=== PATIENT | female | born 1945 | race Caucasian/White ===

== ENCOUNTER 2016-09-23 12:30 | Outpatient (CLI) | payer MEDICARE, OTHER | END 2016-09-23 12:31 | disposition home or self-care (01) | DX: I82.402 Acute embolism and thrombosis of unspecified deep veins of left lower extremity (principal); Z86.718 Personal history of other venous thrombosis and embolism ==

== ENCOUNTER 2016-10-22 09:30 | Outpatient (CLI) | payer MEDICARE, OTHER | END 2016-10-22 09:31 | disposition home or self-care (01) | DX: I82.402 Acute embolism and thrombosis of unspecified deep veins of left lower extremity (principal); Z86.718 Personal history of other venous thrombosis and embolism ==

== ENCOUNTER 2016-11-17 13:25 | Outpatient (CLI) | payer MEDICARE, OTHER | END 2016-11-17 13:26 | disposition home or self-care (01) | DX: I82.402 Acute embolism and thrombosis of unspecified deep veins of left lower extremity (principal) ==

== ENCOUNTER 2016-12-02 09:36 | Outpatient (CLI) | payer MEDICARE, OTHER | END 2016-12-02 09:37 | disposition home or self-care (01) | DX: I82.402 Acute embolism and thrombosis of unspecified deep veins of left lower extremity (principal) ==

== ENCOUNTER 2016-12-24 11:06 | Outpatient (CLI) | payer MEDICARE, OTHER | END 2016-12-24 11:07 | disposition home or self-care (01) | DX: I82.402 Acute embolism and thrombosis of unspecified deep veins of left lower extremity (principal) ==

== ENCOUNTER 2017-01-13 12:39 | Outpatient (CLI) | payer MEDICARE, OTHER | END 2017-01-13 12:40 | disposition home or self-care (01) | DX: I82.402 Acute embolism and thrombosis of unspecified deep veins of left lower extremity (principal) ==

== ENCOUNTER 2017-02-10 10:31 | Outpatient (CLI) | payer MEDICARE, OTHER | END 2017-02-10 10:32 | disposition home or self-care (01) | LOC: LAB.F 10:31 | PROVIDERS: ATTEND Nurse Practitioner | DX: I82.402 Acute embolism and thrombosis of unspecified deep veins of left lower extremity (principal) | CPT/HCPCS: 85610 ==

== ENCOUNTER 2017-02-21 10:53 | Outpatient (CLI) | payer MEDICARE, OTHER | END 2017-02-21 10:54 | disposition home or self-care (01) | LOC: LAB.F 10:53 | PROVIDERS: ATTEND Nurse Practitioner | DX: I82.402 Acute embolism and thrombosis of unspecified deep veins of left lower extremity (principal) | CPT/HCPCS: 85610 ==

== ENCOUNTER 2017-03-03 10:46 | Outpatient (CLI) | payer MEDICARE, OTHER | END 2017-03-03 10:47 | disposition home or self-care (01) | LOC: LAB.F 10:46 | PROVIDERS: ATTEND Nurse Practitioner | DX: I82.402 Acute embolism and thrombosis of unspecified deep veins of left lower extremity (principal) | CPT/HCPCS: 85610 ==

== ENCOUNTER 2017-03-30 09:49 | Outpatient (CLI) | payer MEDICARE, OTHER | END 2017-03-30 09:50 | disposition home or self-care (01) | LOC: LAB.F 09:49 | PROVIDERS: ATTEND Nurse Practitioner | DX: I82.402 Acute embolism and thrombosis of unspecified deep veins of left lower extremity (principal) | CPT/HCPCS: 85610 ==

== ENCOUNTER 2017-04-29 10:10 | Outpatient (CLI) | payer MEDICARE, OTHER | END 2017-04-29 10:11 | disposition home or self-care (01) | LOC: LAB.F 10:10 | PROVIDERS: ATTEND Nurse Practitioner | DX: I82.402 Acute embolism and thrombosis of unspecified deep veins of left lower extremity (principal) | CPT/HCPCS: 85610 ==

== ENCOUNTER 2017-05-27 10:23 | Outpatient (CLI) | payer MEDICARE, OTHER | END 2017-05-27 10:24 | disposition home or self-care (01) | LOC: LAB.F 10:23 | PROVIDERS: ATTEND Nurse Practitioner | DX: I82.402 Acute embolism and thrombosis of unspecified deep veins of left lower extremity (principal) | CPT/HCPCS: 85610 ==

== ENCOUNTER 2017-06-24 08:00 | Outpatient (CLI) | payer MEDICARE, OTHER | END 2017-06-24 08:01 | disposition home or self-care (01) | LOC: LAB.F 08:00 | PROVIDERS: ATTEND Nurse Practitioner | DX: I82.402 Acute embolism and thrombosis of unspecified deep veins of left lower extremity (principal) | CPT/HCPCS: 85610 ==

== ENCOUNTER 2017-07-25 10:21 | Outpatient (CLI) | payer MEDICARE, OTHER | END 2017-07-25 10:22 | disposition home or self-care (01) | LOC: LAB.F 10:21 | PROVIDERS: ATTEND Nurse Practitioner | DX: I82.402 Acute embolism and thrombosis of unspecified deep veins of left lower extremity (principal) | CPT/HCPCS: 85610 ==

== ENCOUNTER 2017-08-19 13:59 | Outpatient (CLI) | payer MEDICARE, OTHER | END 2017-08-19 14:00 | disposition home or self-care (01) | LOC: LAB.F 13:59 | PROVIDERS: ATTEND Nurse Practitioner | DX: I82.402 Acute embolism and thrombosis of unspecified deep veins of left lower extremity (principal) | CPT/HCPCS: 85610 ==

== ENCOUNTER 2017-08-31 13:35 | Outpatient (CLI) | payer MEDICARE, OTHER | END 2017-08-31 13:36 | disposition home or self-care (01) | LOC: LAB.F 13:35 | PROVIDERS: ATTEND Nurse Practitioner | DX: I82.402 Acute embolism and thrombosis of unspecified deep veins of left lower extremity (principal) | CPT/HCPCS: 85610 ==

== ENCOUNTER 2017-09-15 09:32 | Outpatient (CLI) | payer MEDICARE, OTHER | END 2017-09-15 09:33 | disposition home or self-care (01) | LOC: LAB.F 09:32 | PROVIDERS: ATTEND Nurse Practitioner | DX: I82.402 Acute embolism and thrombosis of unspecified deep veins of left lower extremity (principal) | CPT/HCPCS: 85610 ==

== ENCOUNTER 2017-09-29 11:00 | Outpatient (CLI) | payer MEDICARE, OTHER | END 2017-09-29 11:01 | disposition home or self-care (01) | LOC: LAB.F 11:00 | PROVIDERS: ATTEND Family Medicine | DX: I82.402 Acute embolism and thrombosis of unspecified deep veins of left lower extremity (principal) | CPT/HCPCS: 85610 ==

== ENCOUNTER 2017-10-13 10:53 | Outpatient (CLI) | payer MEDICARE, OTHER | END 2017-10-13 10:54 | disposition home or self-care (01) | LOC: LAB.F 10:53 | PROVIDERS: ATTEND Family Medicine | DX: I82.402 Acute embolism and thrombosis of unspecified deep veins of left lower extremity (principal) | CPT/HCPCS: 85610 ==

== ENCOUNTER 2017-11-03 11:09 | Outpatient (CLI) | payer MEDICARE, OTHER | END 2017-11-03 11:10 | disposition home or self-care (01) | LOC: LAB.F 11:09 | PROVIDERS: ATTEND Family Medicine | DX: I82.402 Acute embolism and thrombosis of unspecified deep veins of left lower extremity (principal) | CPT/HCPCS: 85610 ==

== ENCOUNTER 2017-11-25 10:29 | Outpatient (CLI) | payer MEDICARE, OTHER | END 2017-11-25 10:30 | disposition home or self-care (01) | LOC: LAB.F 10:29 | PROVIDERS: ATTEND Family Medicine | DX: I82.402 Acute embolism and thrombosis of unspecified deep veins of left lower extremity (principal) | CPT/HCPCS: 85610 ==

== ENCOUNTER 2017-12-09 12:57 | Outpatient (CLI) | payer MEDICARE, OTHER | END 2017-12-09 12:58 | disposition home or self-care (01) | LOC: LAB.F 12:57 | PROVIDERS: ATTEND Family Medicine | DX: I82.402 Acute embolism and thrombosis of unspecified deep veins of left lower extremity (principal) | CPT/HCPCS: 85610 ==

== ENCOUNTER 2017-12-23 11:14 | Outpatient (CLI) | payer MEDICARE, OTHER | END 2017-12-23 11:15 | disposition home or self-care (01) | LOC: LAB.F 11:14 | PROVIDERS: ATTEND Family Medicine | DX: I82.402 Acute embolism and thrombosis of unspecified deep veins of left lower extremity (principal) | CPT/HCPCS: 85610 ==

== ENCOUNTER 2018-01-13 14:00 | Outpatient (CLI) | payer MEDICARE, OTHER | END 2018-01-13 14:01 | disposition home or self-care (01) | LOC: LAB.F 14:00 | PROVIDERS: ATTEND Family Medicine | DX: I82.402 Acute embolism and thrombosis of unspecified deep veins of left lower extremity (principal) | CPT/HCPCS: 85610 ==

== ENCOUNTER 2018-02-03 10:37 | Outpatient (CLI) | payer MEDICARE, OTHER | END 2018-02-03 10:38 | disposition home or self-care (01) | LOC: LAB.F 10:37 | PROVIDERS: ATTEND Family Medicine | DX: I82.402 Acute embolism and thrombosis of unspecified deep veins of left lower extremity (principal) | CPT/HCPCS: 85610 ==

== ENCOUNTER 2018-02-23 13:29 | Outpatient (CLI) | payer MEDICARE, OTHER | END 2018-02-23 13:30 | disposition home or self-care (01) | LOC: LAB.F 13:29 | PROVIDERS: ATTEND Family Medicine | DX: I82.402 Acute embolism and thrombosis of unspecified deep veins of left lower extremity (principal) | CPT/HCPCS: 85610 ==

== ENCOUNTER 2018-03-27 10:43 | Outpatient (CLI) | payer MEDICARE, OTHER | END 2018-03-27 10:44 | disposition home or self-care (01) | LOC: LAB.F 10:43 | PROVIDERS: ATTEND Family Medicine | DX: I82.402 Acute embolism and thrombosis of unspecified deep veins of left lower extremity (principal) | CPT/HCPCS: 85610 ==

== ENCOUNTER 2018-04-12 11:07 | Outpatient (CLI) | payer MEDICARE, OTHER | END 2018-04-12 11:08 | disposition home or self-care (01) | LOC: LAB.F 11:07 | PROVIDERS: ATTEND Family Medicine | DX: I82.402 Acute embolism and thrombosis of unspecified deep veins of left lower extremity (principal) | CPT/HCPCS: 85610 ==

== ENCOUNTER 2018-05-11 10:39 | Outpatient (CLI) | payer MEDICARE, OTHER | END 2018-05-11 10:40 | disposition home or self-care (01) | LOC: LAB.F 10:39 | PROVIDERS: ATTEND Family Medicine | DX: I82.402 Acute embolism and thrombosis of unspecified deep veins of left lower extremity (principal) | CPT/HCPCS: 85610 ==

== ENCOUNTER 2018-06-08 09:27 | Outpatient (CLI) | payer MEDICARE, OTHER | END 2018-06-08 09:28 | disposition home or self-care (01) | LOC: LAB.F 09:27 | PROVIDERS: ATTEND Family Medicine | DX: I82.402 Acute embolism and thrombosis of unspecified deep veins of left lower extremity (principal) | CPT/HCPCS: 85610 ==

== ENCOUNTER 2018-07-07 11:41 | Outpatient (CLI) | payer MEDICARE, OTHER ==
[2018-07-07 17:53] LABS: INR 2.6 (0.8-1.2); PT - PROTHROMBIN TIME 29.5 secs (9.9-12.6)
== END 2018-07-07 11:42 | disposition home or self-care (01) ==
LOC: LAB.F 11:41
PROVIDERS: ATTEND Family Medicine
DX: I82.402 Acute embolism and thrombosis of unspecified deep veins of left lower extremity (principal)
CPT/HCPCS: 36415; 85610

== ENCOUNTER 2018-08-04 11:18 | Outpatient (CLI) | payer MEDICARE, OTHER | END 2018-08-04 11:19 | disposition home or self-care (01) | LOC: LAB.F 11:18 | PROVIDERS: ATTEND Family Medicine | DX: I82.402 Acute embolism and thrombosis of unspecified deep veins of left lower extremity (principal) | CPT/HCPCS: 85610 ==

== ENCOUNTER 2018-08-21 10:46 | Outpatient (CLI) | payer MEDICARE, OTHER | END 2018-08-21 10:47 | disposition home or self-care (01) | LOC: LAB.F 10:46 | PROVIDERS: ATTEND Family Medicine | DX: I82.402 Acute embolism and thrombosis of unspecified deep veins of left lower extremity (principal) | CPT/HCPCS: 85610 ==

== ENCOUNTER 2018-09-06 10:24 | Outpatient (CLI) | payer MEDICARE, OTHER | END 2018-09-06 10:25 | disposition home or self-care (01) | LOC: LAB.F 10:24 | PROVIDERS: ATTEND Family Medicine | DX: I82.402 Acute embolism and thrombosis of unspecified deep veins of left lower extremity (principal) | CPT/HCPCS: 85610 ==

== ENCOUNTER 2018-09-24 15:43 | Emergency (ER) | payer MEDICARE, OTHER ==
--- NOTE | 2018-09-24 16:01 | ED Physician Documentation ---
History of Present Illness - Stated complaint Stated Complaint: RIGHT LEG HURTING, PAINFUL WALKING - Chief complaint Chief Complaint: Ext Problem - History obtained from History obtained from: Patient - History of Present Illness Timing: How many weeks ago (1) - Additonal information Additional information: 73-year-old female with a history of multiple myeloma who has had a stem cell transplant that has been successful has had a prior DVT and is on Coumadin and she has developed some pain in her right calf. She feels these symptoms may be related to DVT and she is here for evaluation. She states that she does have a bit of pain when she is walking and when she is sitting and doing nothing the pain is not bad. She denies any swelling or leg. She is recently seen her oncologist yesterday and she will continue on her antineoplastic medication. Review of Systems Constitutional: denies: Fever Eyes: denies: Decreased vision Ears: denies: Ear pain Nose: denies: Congestion Throat: denies: Sore throat Cardiac: denies: Chest pain / pressure, Palpitations Respiratory: denies: Dyspnea, Cough GI: reports: Diarrhea. denies: Abdominal Pain, Nausea, Vomiting : denies: Dysuria, Frequency Skin: denies: Rash Musculoskeletal: reports: Extremity pain, Pain with weight bearing. denies: Neck pain, Back pain, Joint pain, Extremity swelling Neurologic: denies: Generalized weakness, Focal weakness, Numbness PD PAST MEDICAL HISTORY - Past Surgical History Past Surgical History: Yes - Present Medications Home Medications: Ambulatory Orders Medication Instructions Recorded Confirmed Levothyroxine [Synthroid] 88 mcg PO QDAC 04/12/13 04/12/13 Losartan/Hydrochlorothiazide 1 each PO DAILY 04/12/13 04/12/13 [Losartan-Hctz 50-12.5 mg Tab] Metoprolol Succinate 50 mg PO DAILY 04/12/13 04/12/13 Rosuvastatin [Crestor] 20 mg PO QPM 04/12/13 04/12/13 Warfarin [Coumadin] 5 mg PO 1400 04/12/13 04/12/13 - Allergies Allergies/Adverse Reactions: Allergies Allergy/AdvReac Type Severity Reaction Status Date / Time No Known Drug Allergies Allergy Verified 04/12/13 23:20 - Social History Does the pt smoke?: No Smoking Status: Never smoker Does the pt drink ETOH?: No Does the pt have substance abuse?: No - Immunizations Immunizations are current?: Yes - POLST Patient has POLST: No PD ED PE NORMAL - Vitals Vital signs reviewed: Yes (tachy and hypertensive ) - General General: Alert and oriented X 3, No acute distress, Well developed/nourished, Other (hard of hearing ) - HEENT HEENT: Atraumatic, PERRL, EOMI - Respiratory Respiratory: No respiratory distress - Back Back: No CVA TTP, No spinal TTP - Derm Derm: Normal color, Warm and dry, No rash - Extremities Extremities: No deformity, No edema, Other (There is posterior calf tenderness without swelling and there is no pain to palpation of the posterior thigh. ) - Neuro Neuro: Alert and oriented X 3, tie inspector 2-12 intact, No motor deficit, No sensory deficit, Normal speech Eye Opening: Spontaneous Motor: Obeys Commands Verbal: Oriented GCS Score: 15 - Psych Psych: Normal mood, Normal affect Results - Vitals Vitals: Oxygen O2 Source Room air - Labs Labs: Laboratory Tests 09/24/18 16:20 Whole Blood INR 2.0 H - Rads (name of study) duplex viens right Radiology: Prelim report reviewed (Impression: No evidence for deep venous thrombosis.), EMP read indepedently, See rad report PD MEDICAL DECISION MAKING - ED course Complexity details: reviewed results, re-evaluated patient, considered differential, d/w patient, d/w family ED course: 73-year-old female with a prior history of DVT has pain in her right calf and she is concerned about DVT again. She does not have any swelling of the leg. She does have tenderness to the posterior calf. She has a negative ultrasound scan and her INR is 2.0. She is uncertain of any strain that she could have done to her calf. Departure - Departure Disposition: 01 Home, Self Care Clinical Impression: Strain of calf muscle Qualifiers: Encounter type: initial encounter Laterality: right Qualified Code(s): S86.811A - Strain of other muscle(s) and tendon(s) at lower leg level, right leg, in itial encounter Condition: Stable Instructions: ED Strain Muscle Ext Follow-Up: Clive Wick MD [Primary Care Provider] - Discharge Date/Time: 09/24/18 17:42
[2018-09-24 17:42] VITALS: BP 112/74
--- NOTE | 2018-09-24 17:43 | Ultrasound Report ---
Reason: R calf pain, cancer, prior DVT Procedure Date: 09/24/2018 Accession Number: [id number] / [id number] Procedure: US - Duplex Ext Veins Right CPT Code: FULL RESULT: EXAM: RIGHT LOWER EXTREMITY VENOUS ULTRASOUND EXAM DATE: 09/24/2018 05:15 PM. CLINICAL HISTORY: Right calf pain. Cancer patient. Prior DVT. COMPARISON: None. TECHNIQUE: Real-time sonographic vascular imaging was performed by the roofer assistant through the lower extremity utilizing both color-flow and Doppler spectral analysis. Multiple new accounts banking representative static images were saved for review. FINDINGS: Common Femoral Vein (CFV): Normal. CFV-GSV Junction: Normal. Profunda Femoral Vein (PFV): Normal. Femoral Vein (FV) Prox: Normal. Femoral Vein (FV) Mid: Normal. Femoral Vein (FV) Dist: Normal. Popliteal Vein: Normal. Posterior Tibial Veins: Normal. Peroneal Veins: Normal. IMPRESSION: No evidence for deep venous thrombosis. RADIA
== END 2018-09-24 17:42 | disposition home or self-care (01) ==
LOC: ED 15:43
DX: S86.811A Strain of other muscle(s) and tendon(s) at lower leg level, right leg, initial encounter (principal); X58.XXXA Exposure to other specified factors, initial encounter; Z86.718 Personal history of other venous thrombosis and embolism; Z79.01 Long term (current) use of anticoagulants; Z85.79 Personal history of other malignant neoplasms of lymphoid, hematopoietic and related tissues; Z94.84 Stem cells transplant status
CPT/HCPCS: 85610; 99282; 99283

== ENCOUNTER 2018-10-23 10:41 | Outpatient (CLI) | payer MEDICARE, OTHER | END 2018-10-23 10:42 | disposition home or self-care (01) | LOC: LAB.F 10:41 | PROVIDERS: ATTEND Family Medicine | DX: I82.402 Acute embolism and thrombosis of unspecified deep veins of left lower extremity (principal) | CPT/HCPCS: 85610 ==

== ENCOUNTER 2019-01-01 10:54 | Outpatient (CLI) | payer MEDICARE, OTHER | END 2019-01-01 10:55 | disposition home or self-care (01) | LOC: LAB.F 10:54 | PROVIDERS: ATTEND Family Medicine | DX: I82.402 Acute embolism and thrombosis of unspecified deep veins of left lower extremity (principal) | CPT/HCPCS: 85610 ==

== ENCOUNTER 2019-01-08 12:08 | Outpatient (CLI) | payer MEDICARE, OTHER | END 2019-01-08 12:09 | disposition home or self-care (01) | LOC: LAB.F 12:08 | PROVIDERS: ATTEND Family Medicine | DX: I82.402 Acute embolism and thrombosis of unspecified deep veins of left lower extremity (principal) | CPT/HCPCS: 85610 ==

== ENCOUNTER 2019-01-29 10:27 | Outpatient (CLI) | payer MEDICARE, OTHER | END 2019-01-29 10:28 | disposition home or self-care (01) | LOC: LAB.F 10:27 | PROVIDERS: ATTEND Family Medicine | DX: I82.402 Acute embolism and thrombosis of unspecified deep veins of left lower extremity (principal) | CPT/HCPCS: 85610 ==

== ENCOUNTER 2019-02-19 11:14 | Outpatient (CLI) | payer MEDICARE, OTHER | END 2019-02-19 11:15 | disposition home or self-care (01) | LOC: LAB.F 11:14 | PROVIDERS: ATTEND Family Medicine | DX: I82.402 Acute embolism and thrombosis of unspecified deep veins of left lower extremity (principal) | CPT/HCPCS: 85610 ==

== ENCOUNTER 2019-04-11 15:01 | Outpatient (CLI) | payer MEDICARE, OTHER | END 2019-04-11 15:02 | disposition home or self-care (01) | LOC: LAB.S 15:01 | PROVIDERS: ATTEND Family Medicine | DX: I82.402 Acute embolism and thrombosis of unspecified deep veins of left lower extremity (principal) | CPT/HCPCS: 85610 ==

== ENCOUNTER 2019-04-19 10:51 | Outpatient (CLI) | payer MEDICARE, OTHER | END 2019-04-19 10:52 | disposition home or self-care (01) | LOC: LAB.S 10:51 | PROVIDERS: ATTEND Family Medicine | DX: I82.402 Acute embolism and thrombosis of unspecified deep veins of left lower extremity (principal) | CPT/HCPCS: 85610 ==

== ENCOUNTER 2019-05-03 11:48 | Outpatient (CLI) | payer MEDICARE, OTHER | END 2019-05-03 11:49 | disposition home or self-care (01) | LOC: LAB.S 11:48 | PROVIDERS: ATTEND Family Medicine | DX: I82.402 Acute embolism and thrombosis of unspecified deep veins of left lower extremity (principal) | CPT/HCPCS: 85610 ==

== ENCOUNTER 2019-05-18 11:44 | Outpatient (CLI) | payer MEDICARE, OTHER | END 2019-05-18 11:45 | disposition home or self-care (01) | LOC: LAB.S 11:44 | PROVIDERS: ATTEND Family Medicine | DX: I82.402 Acute embolism and thrombosis of unspecified deep veins of left lower extremity (principal) | CPT/HCPCS: 85610 ==

== ENCOUNTER 2019-06-14 13:32 | Outpatient (CLI) | payer MEDICARE, OTHER | END 2019-06-14 13:33 | disposition home or self-care (01) | LOC: LAB.S 13:32 | PROVIDERS: ATTEND Family Medicine | DX: I82.402 Acute embolism and thrombosis of unspecified deep veins of left lower extremity (principal) | CPT/HCPCS: 85610 ==

== ENCOUNTER 2019-07-05 13:18 | Outpatient (CLI) | payer MEDICARE, OTHER | END 2019-07-05 13:19 | disposition home or self-care (01) | LOC: LAB.S 13:18 | PROVIDERS: ATTEND Family Medicine | DX: I82.402 Acute embolism and thrombosis of unspecified deep veins of left lower extremity (principal) | CPT/HCPCS: 85610 ==

== ENCOUNTER 2019-08-08 12:54 | Outpatient (CLI) | payer MEDICARE, OTHER | END 2019-08-08 23:59 | disposition home or self-care (01) | LOC: LAB.S 12:54 | PROVIDERS: ATTEND Family Medicine | DX: I82.402 Acute embolism and thrombosis of unspecified deep veins of left lower extremity (principal) | CPT/HCPCS: 85610 ==

== ENCOUNTER 2019-08-15 12:18 | Outpatient (CLI) | payer MEDICARE, OTHER | END 2019-08-15 12:19 | disposition home or self-care (01) | LOC: LAB.S 12:18 | PROVIDERS: ATTEND Family Medicine | DX: I82.402 Acute embolism and thrombosis of unspecified deep veins of left lower extremity (principal) | CPT/HCPCS: 85610 ==

== ENCOUNTER 2019-09-12 13:26 | Outpatient (CLI) | payer MEDICARE, OTHER | END 2019-09-12 13:27 | disposition home or self-care (01) | LOC: LAB.S 13:26 | PROVIDERS: ATTEND Family Medicine | DX: Z51.81 Encounter for therapeutic drug level monitoring (principal); Z79.01 Long term (current) use of anticoagulants | CPT/HCPCS: 85610 ==

== ENCOUNTER 2019-10-09 14:24 | Outpatient (CLI) | payer MEDICARE, OTHER | END 2019-10-09 14:25 | disposition home or self-care (01) | LOC: LAB.S 14:24 | PROVIDERS: ATTEND Family Medicine | DX: Z51.81 Encounter for therapeutic drug level monitoring (principal); Z79.01 Long term (current) use of anticoagulants | CPT/HCPCS: 85610 ==

== ENCOUNTER 2019-11-06 14:01 | Outpatient (CLI) | payer MEDICARE, OTHER | END 2019-11-06 14:02 | disposition home or self-care (01) | LOC: LAB.S 14:01 | PROVIDERS: ATTEND Family Medicine | DX: Z51.81 Encounter for therapeutic drug level monitoring (principal); Z79.01 Long term (current) use of anticoagulants | CPT/HCPCS: 85610 ==

== ENCOUNTER 2020-01-29 12:52 | Outpatient (CLI) | payer MEDICARE, OTHER | END 2020-01-29 12:53 | disposition home or self-care (01) | LOC: LAB.S 12:52 | PROVIDERS: ATTEND Family Medicine | DX: Z51.81 Encounter for therapeutic drug level monitoring (principal); Z79.01 Long term (current) use of anticoagulants | CPT/HCPCS: 85610 ==

== ENCOUNTER 2020-02-26 11:50 | Outpatient (CLI) | payer MEDICARE, OTHER | END 2020-02-26 11:51 | disposition home or self-care (01) | LOC: LAB.S 11:50 | PROVIDERS: ATTEND Family Medicine | DX: Z51.81 Encounter for therapeutic drug level monitoring (principal); Z79.01 Long term (current) use of anticoagulants | CPT/HCPCS: 85610 ==

== ENCOUNTER 2020-05-01 16:21 | Outpatient (CLI) | payer MEDICARE, OTHER | END 2020-05-01 16:22 | disposition home or self-care (01) | LOC: LAB.S 16:21 | PROVIDERS: ATTEND Family Medicine | DX: Z51.81 Encounter for therapeutic drug level monitoring (principal); Z79.01 Long term (current) use of anticoagulants | CPT/HCPCS: 85610 ==

== ENCOUNTER 2020-05-16 13:29 | Outpatient (CLI) | payer MEDICARE, OTHER | END 2020-05-16 13:30 | disposition home or self-care (01) | LOC: LAB.S 13:29 | PROVIDERS: ATTEND Family Medicine | DX: Z51.81 Encounter for therapeutic drug level monitoring (principal); Z79.01 Long term (current) use of anticoagulants | CPT/HCPCS: 85610 ==

== ENCOUNTER 2020-06-12 13:15 | Outpatient (CLI) | payer MEDICARE, OTHER | END 2020-06-12 13:16 | disposition home or self-care (01) | LOC: LAB.S 13:15 | PROVIDERS: ATTEND Family Medicine | DX: Z51.81 Encounter for therapeutic drug level monitoring (principal); Z79.01 Long term (current) use of anticoagulants | CPT/HCPCS: 85610 ==

== ENCOUNTER 2020-06-17 13:14 | Outpatient (CLI) | payer MEDICARE, OTHER | END 2020-06-17 13:15 | disposition home or self-care (01) | LOC: LAB.S 13:14 | PROVIDERS: ATTEND Family Medicine | DX: Z51.81 Encounter for therapeutic drug level monitoring (principal); Z79.01 Long term (current) use of anticoagulants | CPT/HCPCS: 85610 ==

== ENCOUNTER 2020-07-08 11:50 | Outpatient (CLI) | payer MEDICARE, OTHER | END 2020-07-08 11:51 | disposition home or self-care (01) | LOC: LAB.S 11:50 | PROVIDERS: ATTEND Family Medicine | DX: Z51.81 Encounter for therapeutic drug level monitoring (principal); Z79.01 Long term (current) use of anticoagulants | CPT/HCPCS: 85610 ==

== ENCOUNTER 2020-07-18 10:46 | Outpatient (CLI) | payer MEDICARE, OTHER | END 2020-07-18 10:47 | disposition home or self-care (01) | LOC: LAB.S 10:46 | PROVIDERS: ATTEND Family Medicine | DX: Z51.81 Encounter for therapeutic drug level monitoring (principal); Z79.01 Long term (current) use of anticoagulants | CPT/HCPCS: 85610 ==

== ENCOUNTER 2020-07-24 17:20 | Outpatient (CLI) | payer MEDICARE, OTHER | END 2020-07-24 23:59 | disposition home or self-care (01) | LOC: LAB.R 17:20 | PROVIDERS: ATTEND Family Medicine | DX: R19.7 Diarrhea, unspecified (principal) | CPT/HCPCS: 0097U; 81599; 87046; 87493 ==

== ENCOUNTER 2020-07-31 10:54 | Outpatient (CLI) | payer MEDICARE, OTHER | END 2020-07-31 10:55 | disposition home or self-care (01) | LOC: LAB.S 10:54 | PROVIDERS: ATTEND Family Medicine | DX: Z51.81 Encounter for therapeutic drug level monitoring (principal); Z79.01 Long term (current) use of anticoagulants | CPT/HCPCS: 85610 ==

== ENCOUNTER 2020-08-08 11:15 | Outpatient (CLI) | payer MEDICARE, OTHER | END 2020-08-08 11:16 | disposition home or self-care (01) | LOC: LAB.S 11:15 | PROVIDERS: ATTEND Family Medicine | DX: Z51.81 Encounter for therapeutic drug level monitoring (principal); Z79.01 Long term (current) use of anticoagulants | CPT/HCPCS: 85610 ==

== ENCOUNTER 2020-08-15 11:17 | Outpatient (CLI) | payer MEDICARE, OTHER | END 2020-08-15 11:18 | disposition home or self-care (01) | LOC: LAB.S 11:17 | PROVIDERS: ATTEND Family Medicine | DX: Z51.81 Encounter for therapeutic drug level monitoring (principal); Z79.01 Long term (current) use of anticoagulants | CPT/HCPCS: 85610 ==

== ENCOUNTER 2020-08-20 12:00 | Outpatient (CLI) | payer MEDICARE, OTHER | END 2020-08-20 12:01 | disposition home or self-care (01) | LOC: LAB.S 12:00 | PROVIDERS: ATTEND Family Medicine | DX: Z51.81 Encounter for therapeutic drug level monitoring (principal); Z79.01 Long term (current) use of anticoagulants | CPT/HCPCS: 85610 ==

== ENCOUNTER 2020-09-03 12:24 | Outpatient (CLI) | payer MEDICARE, OTHER | END 2020-09-03 12:25 | disposition home or self-care (01) | LOC: LAB.S 12:24 | PROVIDERS: ATTEND Family Medicine | DX: Z51.81 Encounter for therapeutic drug level monitoring (principal); Z79.01 Long term (current) use of anticoagulants | CPT/HCPCS: 85610 ==

== ENCOUNTER 2020-09-11 18:43 | Outpatient (CLI) | payer MEDICARE, OTHER | END 2020-09-11 18:44 | disposition home or self-care (01) | LOC: COV 18:43 | PROVIDERS: ATTEND Dermatology MOHS-Micrographic Surgery | DX: Z01.812 Encounter for preprocedural laboratory examination (principal); Z20.822 Contact with and (suspected) exposure to COVID-19 ==

== ENCOUNTER 2020-09-15 11:43 | Outpatient (CLI) | payer MEDICARE, OTHER | END 2020-09-15 11:44 | disposition home or self-care (01) | LOC: LAB.S 11:43 | PROVIDERS: ATTEND Family Medicine | DX: Z51.81 Encounter for therapeutic drug level monitoring (principal); Z79.01 Long term (current) use of anticoagulants | CPT/HCPCS: 85610 ==

== ENCOUNTER 2020-09-22 12:39 | Outpatient (CLI) | payer MEDICARE, OTHER | END 2020-09-22 12:40 | disposition home or self-care (01) | LOC: LAB.S 12:39 | PROVIDERS: ATTEND Family Medicine | DX: Z51.81 Encounter for therapeutic drug level monitoring (principal); Z79.01 Long term (current) use of anticoagulants | CPT/HCPCS: 85610 ==

== ENCOUNTER 2020-10-07 10:32 | Outpatient (CLI) | payer MEDICARE, OTHER | END 2020-10-07 10:33 | disposition home or self-care (01) | LOC: LAB.S 10:32 | PROVIDERS: ATTEND Family Medicine | DX: Z51.81 Encounter for therapeutic drug level monitoring (principal); Z79.01 Long term (current) use of anticoagulants | CPT/HCPCS: 85610 ==

== ENCOUNTER 2020-10-29 10:11 | Outpatient (CLI) | payer MEDICARE, BC | END 2020-10-29 10:12 | disposition home or self-care (01) | LOC: LAB.S 10:11 | PROVIDERS: ATTEND Family Medicine | DX: Z51.81 Encounter for therapeutic drug level monitoring (principal); Z79.01 Long term (current) use of anticoagulants | CPT/HCPCS: 85610 ==

== ENCOUNTER 2020-11-26 11:01 | Outpatient (CLI) | payer MEDICARE, BC | END 2020-11-26 11:02 | disposition home or self-care (01) | LOC: LAB.S 11:01 | PROVIDERS: ATTEND Family Medicine | DX: Z51.81 Encounter for therapeutic drug level monitoring (principal); Z79.01 Long term (current) use of anticoagulants | CPT/HCPCS: 85610 ==

== ENCOUNTER 2020-12-24 10:34 | Outpatient (CLI) | payer MEDICARE, OTHER | END 2020-12-24 10:35 | disposition home or self-care (01) | LOC: LAB.S 10:34 | PROVIDERS: ATTEND Family Medicine | DX: Z51.81 Encounter for therapeutic drug level monitoring (principal); Z79.01 Long term (current) use of anticoagulants | CPT/HCPCS: 36416; 85610 ==

== ENCOUNTER 2021-01-08 09:35 | Outpatient (CLI) | payer MEDICARE | END 2021-01-08 09:36 | disposition home or self-care (01) | LOC: LAB.S 09:35 | PROVIDERS: ATTEND Family Medicine | DX: Z51.81 Encounter for therapeutic drug level monitoring (principal); Z79.01 Long term (current) use of anticoagulants | CPT/HCPCS: 36416; 85610 ==

== ENCOUNTER 2021-02-03 08:51 | Outpatient (CLI) | payer MEDICARE, OTHER | END 2021-02-03 08:52 | disposition home or self-care (01) | LOC: LAB.S 08:51 | PROVIDERS: ATTEND Family Medicine | DX: Z51.81 Encounter for therapeutic drug level monitoring (principal); Z79.01 Long term (current) use of anticoagulants | CPT/HCPCS: 36416; 85610 ==

== ENCOUNTER 2021-02-12 08:00 | Outpatient (CLI) | payer MEDICARE, OTHER | END 2021-02-12 23:59 | disposition home or self-care (01) | LOC: LAB.S 08:00 | PROVIDERS: ATTEND Physician Assistant Medical | DX: N30.00 Acute cystitis without hematuria (principal); R30.0 Dysuria | CPT/HCPCS: 87077; 87086; 87181 ==

== ENCOUNTER 2021-03-04 11:46 | Outpatient (CLI) | payer MEDICARE, OTHER | END 2021-03-04 11:47 | disposition home or self-care (01) | LOC: LAB.S 11:46 | PROVIDERS: ATTEND Family Medicine | DX: Z51.81 Encounter for therapeutic drug level monitoring (principal); Z79.01 Long term (current) use of anticoagulants | CPT/HCPCS: 36416; 85610 ==

== ENCOUNTER 2021-04-06 09:31 | Outpatient (CLI) | payer MEDICARE, OTHER | END 2021-04-06 09:32 | disposition home or self-care (01) | LOC: LAB.S 09:31 | PROVIDERS: ATTEND Family Medicine | DX: Z51.81 Encounter for therapeutic drug level monitoring (principal); Z79.01 Long term (current) use of anticoagulants | CPT/HCPCS: 36416; 85610 ==

== ENCOUNTER 2021-05-05 10:56 | Outpatient (CLI) | payer MEDICARE, OTHER | END 2021-05-05 10:57 | disposition home or self-care (01) | LOC: LAB.S 10:56 | PROVIDERS: ATTEND Family Medicine | DX: Z51.81 Encounter for therapeutic drug level monitoring (principal); Z79.01 Long term (current) use of anticoagulants | CPT/HCPCS: 36416; 85610 ==

== ENCOUNTER 2021-06-09 10:39 | Outpatient (CLI) | payer MEDICARE, OTHER | END 2021-06-09 10:40 | disposition home or self-care (01) | LOC: LAB.S 10:39 | PROVIDERS: ATTEND Family Medicine | DX: Z51.81 Encounter for therapeutic drug level monitoring (principal); Z79.01 Long term (current) use of anticoagulants | CPT/HCPCS: 36416; 85610 ==

== ENCOUNTER 2021-07-07 11:25 | Outpatient (CLI) | payer MEDICARE, OTHER | END 2021-07-07 11:26 | disposition home or self-care (01) | LOC: LAB.S 11:25 | PROVIDERS: ATTEND Family Medicine | DX: Z51.81 Encounter for therapeutic drug level monitoring (principal); Z79.01 Long term (current) use of anticoagulants | CPT/HCPCS: 36416; 85610 ==

== ENCOUNTER 2021-08-06 10:01 | Outpatient (CLI) | payer MEDICARE, OTHER | END 2021-08-06 10:02 | disposition home or self-care (01) | LOC: LAB.S 10:01 | PROVIDERS: ATTEND Family Medicine | DX: Z51.81 Encounter for therapeutic drug level monitoring (principal); Z79.01 Long term (current) use of anticoagulants | CPT/HCPCS: 36416; 85610 ==

== ENCOUNTER 2021-09-10 08:46 | Outpatient (CLI) | payer MEDICARE, OTHER | END 2021-09-10 08:47 | disposition home or self-care (01) | LOC: LAB.S 08:46 | PROVIDERS: ATTEND Family Medicine | DX: Z51.81 Encounter for therapeutic drug level monitoring (principal); Z79.01 Long term (current) use of anticoagulants | CPT/HCPCS: 85610 ==

== ENCOUNTER 2021-10-15 10:07 | Outpatient (CLI) | payer MEDICARE, OTHER | END 2021-10-15 10:08 | disposition home or self-care (01) | LOC: LAB.S 10:07 | PROVIDERS: ATTEND Family Medicine | DX: Z51.81 Encounter for therapeutic drug level monitoring (principal); Z79.01 Long term (current) use of anticoagulants | CPT/HCPCS: 36416; 85610 ==

== ENCOUNTER 2021-11-19 11:18 | Outpatient (CLI) | payer MEDICARE, OTHER | END 2021-11-19 11:19 | disposition home or self-care (01) | LOC: LAB.S 11:18 | PROVIDERS: ATTEND Family Medicine | DX: Z51.81 Encounter for therapeutic drug level monitoring (principal); Z79.01 Long term (current) use of anticoagulants | CPT/HCPCS: 36416; 85610 ==

== ENCOUNTER 2021-12-17 11:16 | Outpatient (CLI) | payer MEDICARE, OTHER | END 2021-12-17 11:17 | disposition home or self-care (01) | LOC: LAB.S 11:16 | PROVIDERS: ATTEND Family Medicine | DX: Z51.81 Encounter for therapeutic drug level monitoring (principal); Z79.01 Long term (current) use of anticoagulants | CPT/HCPCS: 36416; 85610 ==

== ENCOUNTER 2022-01-21 08:49 | Outpatient (CLI) | payer MEDICARE, OTHER | END 2022-01-21 08:50 | disposition home or self-care (01) | LOC: LAB.S 08:49 | PROVIDERS: ATTEND Family Medicine | DX: Z51.81 Encounter for therapeutic drug level monitoring (principal); Z79.01 Long term (current) use of anticoagulants | CPT/HCPCS: 36416; 85610 ==

== ENCOUNTER 2022-02-25 11:02 | Outpatient (CLI) | payer MEDICARE, OTHER | END 2022-02-25 11:03 | disposition home or self-care (01) | LOC: LAB.S 11:02 | PROVIDERS: ATTEND Family Medicine | DX: Z51.81 Encounter for therapeutic drug level monitoring (principal); Z79.01 Long term (current) use of anticoagulants | CPT/HCPCS: 85610 ==

== ENCOUNTER 2022-06-16 10:30 | Outpatient (CLI) | payer MEDICARE, OTHER | END 2022-06-16 10:31 | disposition home or self-care (01) | LOC: LAB.S 10:30 | PROVIDERS: ATTEND Family Medicine | DX: Z51.81 Encounter for therapeutic drug level monitoring (principal); Z79.01 Long term (current) use of anticoagulants | CPT/HCPCS: 36416; 85610 ==

== ENCOUNTER 2022-07-28 11:58 | Outpatient (CLI) | payer MEDICARE, OTHER | END 2022-07-28 11:59 | disposition home or self-care (01) | LOC: LAB.S 11:58 | PROVIDERS: ATTEND Family Medicine | DX: Z51.81 Encounter for therapeutic drug level monitoring (principal); Z79.01 Long term (current) use of anticoagulants | CPT/HCPCS: 36416; 85610 ==

== ENCOUNTER 2022-09-08 10:48 | Outpatient (CLI) | payer MEDICARE, OTHER ==
[2022-09-08 14:39] LABS: BASOPHILS # (AUTO) 0.1 10^3/uL (0.0-0.1); BASOPHILS % (AUTO) 0.9 %; EOSINOPHILS # (AUTO) 0.2 10^3/uL (0.0-0.7); HCT - HEMATOCRIT 45.3 % (37.0-47.0); HGB - HEMOGLOBIN 14.6 g/dL (12.0-16.0); LYMPHOCYTES # (AUTO) 1.6 10^3/uL (1.5-3.5); LYMPHOCYTES % (AUTO) 27.7 %; MEAN CORPUSCULAR HEMOGLOBIN 31.4 pg (27.0-31.0); MEAN CORPUSCULAR HGB CONC 32.2 g/dL (32.0-36.0); MEAN CORPUSCULAR VOLUME 97.4 fL (81.0-99.0); MEAN PLATELET VOLUME 9.6 fL (7.9-10.8); MONOCYTES # (AUTO) 0.6 10^3/uL (0.0-1.0); MONOCYTES % (AUTO) 10.6 %; NEUTROPHILS # (AUTO) 3.3 10^3/uL (1.5-6.6); NEUTROPHILS % (AUTO) 57.6 %; PLT - PLATELET COUNT 241 10^3/uL (130-450); RED BLOOD COUNT 4.65 10^6/uL (4.20-5.40); RED CELL DISTRIBUTION WIDTH 13.9 % (12.0-15.0); WHITE BLOOD COUNT 5.6 x10^3/uL (4.8-10.8)
[2022-09-08 15:58] LABS: CALCIUM 9.2 mg/dL (8.5-10.3); CREATININE 0.9 mg/dL (0.4-1.0); POTASSIUM 4.1 mmol/L (3.5-5.0)
== END 2022-09-08 10:49 | disposition home or self-care (01) ==
LOC: LAB.S 10:48
PROVIDERS: ATTEND Family Medicine
DX: Z51.81 Encounter for therapeutic drug level monitoring (principal); Z79.01 Long term (current) use of anticoagulants; R60.0 Localized edema
CPT/HCPCS: 36415; 36416; 80048; 83880; 85025; 85610

== ENCOUNTER 2022-09-16 18:30 | Outpatient (CLI) | payer MEDICARE, OTHER | END 2022-09-16 18:31 | disposition critical access hospital (66) | LOC: EMS 18:30 | DX: I95.1 Orthostatic hypotension (principal); Z79.01 Long term (current) use of anticoagulants | CPT/HCPCS: A0425; A0429 ==

== ENCOUNTER 2022-09-16 19:04 | Emergency (ER) | payer MEDICARE, OTHER ==
[2022-09-16] MEDS ORDERED: SODIUM CHLORIDE 0.9% 1,000 ML IV STA (19:11)
--- NOTE | 2022-09-16 19:15 | ED Physician Documentation ---
History of Present Illness - Stated complaint Stated Complaint: DIZZINESS - Chief complaint Chief Complaint: General - History obtained from History obtained from: Patient, EMS - History of Present Illness Timing: How many weeks ago (1) Pain level max: 0 Pain level now: 0 - Additonal information Additional information: 77-year-old female presents to the emergency department stating that she was started on hydrochlorothiazide about a week ago. Since that time she has felt lightheaded and dizzy with standing. She was started on it for peripheral edema. She states the edema is improved. No dyspnea. No chest pain. No shortness of breath. Worse with standing, better with lying flat. Patient is currently asymptomatic. Review of Systems Constitutional: denies: Fever, Chills Cardiac: denies: Chest pain / pressure, Palpitations Respiratory: denies: Cough Skin: denies: Rash Musculoskeletal: denies: Neck pain, Back pain Neurologic: denies: Headache PD PAST MEDICAL HISTORY - Past Medical History Cardiovascular: Atrial fibrillation, Arrhythmia Neuro: Dementia, CVA, TIA, Migraines Endocrine/Autoimmune: HyPOthyroidism GI: None BUSINESS INTEGRATION ANALYST: None : None HEENT: None Psych: None Musculoskeletal: None Derm: Other - Past Surgical History Past Surgical History: Yes Ortho: ACL reconstruction - Present Medications Home Medications: Ambulatory Orders Medication Instructions Recorded Confirmed Levothyroxine [Synthroid] 88 mcg PO QDAC 04/12/13 04/12/13 Losartan/Hydrochlorothiazide 1 each PO DAILY 04/12/13 04/12/13 [Losartan-Hctz 50-12.5 mg Tab] Metoprolol Succinate 50 mg PO DAILY 04/12/13 04/12/13 Rosuvastatin [Crestor] 20 mg PO QPM 04/12/13 04/12/13 Warfarin [Coumadin] 5 mg PO 1400 04/12/13 04/12/13 - Allergies Allergies/Adverse Reactions: Allergies Allergy/AdvReac Type Severity Reaction Status Date / Time No Known Drug Allergies Allergy Verified 09/16/22 19:15 - Social History Does the pt smoke?: No Smoking Status: Never smoker Does the pt drink ETOH?: No Does the pt have substance abuse?: No - Immunizations Immunizations are current?: Yes - POLST Patient has POLST: No PD ED PE NORMAL - Vitals Vital signs reviewed: Yes - General General: Alert and oriented X 3, No acute distress, Well developed/nourished - HEENT HEENT: Moist mucous membranes - Neck Neck: Supple, no meningeal sign - Cardiac Cardiac: RRR, Strong equal pulses - Respiratory Respiratory: No respiratory distress, Clear bilaterally - Abdomen Abdomen: Soft, Non tender, Non distended - Derm Derm: Warm and dry - Extremities Extremities: Other (1+ BLE edema) - Neuro Neuro: Alert and oriented X 3 - Psych Psych: Normal mood, Normal affect Results - Vitals Vitals: Vital Signs - 24 hr 09/16/22 09/16/22 09/16/22 19:10 19:14 21:01 Temperature 36.8 C 36.8 C 36.6 C Heart Rate 59 L 59 L 62 Respiratory 12 12 12 Rate Blood Pressure 204/76 H 204/76 H 160/70 H O2 Saturation 100 100 100 Oxygen O2 Source Room air - EKG (time done) 1933 Rate: Rate (enter#) (65) Rhythm: NSR [place]: Normal Intervals: Normal [place] QRS: Normal Ischemia: Normal ST segments - Labs Labs: Laboratory Tests 09/16/22 09/16/22 19:23 19:23 WBC 4.7 L RBC 4.56 Hgb 14.4 Hct 44.4 MCV 97.4 MCH 31.6 H MCHC 32.4 RDW 13.8 Plt Count 216 MPV 9.6 Neut # (Auto) 2.4 Lymph # (Auto) 1.3 L [place] # (Auto) 0.6 Eos # (Auto) 0.3 Baso # (Auto) 0.1 Absolute Nucleated RBC 0.00 Nucleated RBC % 0.0 Sodium 136 Potassium 3.9 Chloride 101 Carbon Dioxide 25 Anion Gap 10.0 BUN 31 H Creatinine 1.1 H Estimated GFR (MDRD) 48 L Glucose 111 H Calcium 8.7 Total Bilirubin 0.8 AST 19 ALT 21 Alkaline Phosphatase 69 Total Protein 6.9 Albumin 3.6 Globulin 3.3 Albumin/Globulin Ratio 1.1 PD Medical Decision Making - ED course Complexity details: reviewed results, re-evaluated patient, considered differential, d/w patient ED course: CBC does not show any significant abnormalities. ER abdominal panel has an elevated BUN to creatinine ratio, consistent with dehydration, otherwise unremarkable. EKG does not show any acute abnormalities. Patient was given IV fluids and her lightheadedness resolved. Ambulating with normal, steady gait. Patient is fully asymptomatic. We will have her stop her diuretic. We will utilize compression socks instead for her edema. Patient counseled regarding signs and symptoms for which I believe and urgent re-evaluation would be necessary. Patient with good understanding of and agreement to plan and is comfortable going home at this time This document was made in part using voice recognition software. While efforts are made to proofread this document, sound alike and grammatical errors may occur. Departure - Departure Disposition: Home, Self Care Clinical Impression: Dehydration, Dizziness Condition: Good Instructions: ED Dehydration Follow-Up: Your,doctor in 1 week [Other] Comments: Please follow-up with your doctor for further care. Please return if you worsen. Please stop the hydrochlorothiazide. Discharge Date/Time: 09/16/22 20:45
[2022-09-16 19:30] LABS: BASOPHILS # (AUTO) 0.1 10^3/uL (0.0-0.1); BASOPHILS % (AUTO) 1.3 %; EOSINOPHILS # (AUTO) 0.3 10^3/uL (0.0-0.7); EOSINOPHILS % (AUTO) 5.3 %; HCT - HEMATOCRIT 44.4 % (37.0-47.0); HGB - HEMOGLOBIN 14.4 g/dL (12.0-16.0); LYMPHOCYTES # (AUTO) 1.3 10^3/uL (1.5-3.5); LYMPHOCYTES % (AUTO) 28.6 %; MEAN CORPUSCULAR HEMOGLOBIN 31.6 pg (27.0-31.0); MEAN CORPUSCULAR HGB CONC 32.4 g/dL (32.0-36.0); MEAN CORPUSCULAR VOLUME 97.4 fL (81.0-99.0); MEAN PLATELET VOLUME 9.6 fL (7.9-10.8); MONOCYTES # (AUTO) 0.6 10^3/uL (0.0-1.0); MONOCYTES % (AUTO) 12.4 %; NEUTROPHILS # (AUTO) 2.4 10^3/uL (1.5-6.6); NEUTROPHILS % (AUTO) 52.2 %; PLT - PLATELET COUNT 216 10^3/uL (130-450); RED BLOOD COUNT 4.56 10^6/uL (4.20-5.40); RED CELL DISTRIBUTION WIDTH 13.8 % (12.0-15.0); WHITE BLOOD COUNT 4.7 x10^3/uL (4.8-10.8)
[2022-09-16 19:41] LABS: ALBUMIN 3.6 g/dL (3.2-5.5); ALBUMIN/GLOBULIN RATIO 1.1 (1.0-2.2); BILIRUBIN,TOTAL 0.8 mg/dL (0.2-1.0); CALCIUM 8.7 mg/dL (8.5-10.3); CREATININE 1.1 mg/dL (0.4-1.0); POTASSIUM 3.9 mmol/L (3.5-5.0); TOTAL PROTEIN 6.9 g/dL (6.7-8.2)
--- OUTSIDE RECORDS SUMMARY | 2022-09-16 19:51 | EXTERNAL MEDICAL SUMMARY RPT | Continuity of Care Document ---
:1945 Author Organization [facility] Address [address] [place] [address] Phone Care Team Providers Name Role Phone Unavailable Unavailable Unavailable Abdirashid Crain Md Unavailable Unavailable Allergies No information. Encounters No information. Functional Status No information. Immunizations No information. Medications date description facility 2022-09-08 00:00 RALOXIFENE HCL [facility] [place] 2022-09-09 00:00 RALOXIFENE HCL [facility] [place] 2022-09-10 00:00 RALOXIFENE HCL [facility] [place] 2022-09-16 00:00 RALOXIFENE HCL [facility] [place] 2022-09-08 00:00 propranolol [facility] [place] 2022-09-09 00:00 propranolol [facility] [place] 2022-09-10 00:00 propranolol [facility] [place] 2022-09-16 00:00 propranolol [facility] estes 2022-09-09 00:00 hydrochlorothiazide Walk[facility] [place] 2022-09-08 00:00 levothyroxine [facility] [place] 2022-09-09 00:00 levothyroxine [facility] [place] 2022-09-10 00:00 levothyroxine [facility] [place] 2022-09-16 00:00 levothyroxine [facility] estes 2022-09-08 00:00 metoprolol succinate [facility] [place] est[facility] 2022-09-09 00:00 metoprolol succinate [facility] [place] 2022-09-10 00:00 metoprolol succinate [facility] [place] 2022-09-16 00:00 metoprolol succinate [facility] [place] 2022-09-08 00:00 ASPIRIN [facility] [place] 2022-09-09 00:00 ASPIRIN [facility] [place] 2022-09-10 00:00 ASPIRIN [facility] [place] 2022-09-16 00:00 ASPIRIN [facility] [place] 2022-09-08 00:00 aspirin [facility] [place] 2022-09-09 00:00 aspirin [facility] [place] 2022-09-10 00:00 aspirin [facility] [place] 2022-09-16 00:00 aspirin [facility] [place] 2022-09-08 00:00 levothyroxine [facility] [place] 2022-09-09 00:00 levothyroxine [facility] [place] 2022-09-10 00:00 levothyroxine [facility] [place] 2022-09-16 00:00 levothyroxine [facility] [place] 2022-09-08 00:00 RALOXIFENE HCL [facility] [place] 2022-09-09 00:00 RALOXIFENE HCL [facility] [place] 2022-09-10 00:00 RALOXIFENE HCL [facility] [place] 2022-09-16 00:00 RALOXIFENE HCL [facility] [place] 2022-09-08 00:00 propranolol [facility] [place] 2022-09-09 00:00 propranolol [facility] [place] 2022-09-10 00:00 propranolol [facility] [place] 2022-09-16 00:00 propranolol [facility] [place] 2022-09-08 00:00 amlodipine [facility] [place] 2022-09-09 00:00 amlodipine [facility] [place] 2022-09-10 00:00 amlodipine [facility] [place] 2022-09-16 00:00 amlodipine [facility] [place] 2022-09-09 00:00 hydrochlorothiazide Walk[facility] [place] 2022-09-08 00:00 warfarin [facility] [place] 2022-09-09 00:00 warfarin [facility] [place] 2022-09-10 00:00 warfarin [facility] [place] 2022-09-16 00:00 warfarin [facility] [place] 2022-09-08 00:00 amlodipine [facility] [place] 2022-09-09 00:00 amlodipine [facility] [place] 2022-09-10 00:00 amlodipine [facility] [place] 2022-09-16 00:00 amlodipine [facility] [place] 2022-09-08 00:00 LEVOTHYROXINE SODIUM Walk[facility] [place] 2022-09-09 00:00 LEVOTHYROXINE SODIUM [facility] [place] 2022-09-10 00:00 LEVOTHYROXINE SODIUM [facility] [place] 2022-09-16 00:00 LEVOTHYROXINE SODIUM [facility] [place] 2022-09-08 00:00 levothyroxine [facility] [place] 2022-09-09 00:00 levothyroxine [facility] [place] 2022-09-10 00:00 levothyroxine [facility] [place] 2022-09-16 00:00 levothyroxine [facility] [place] 2022-09-08 00:00 RALOXIFENE HCL [facility] [place] 2022-09-09 00:00 RALOXIFENE HCL [facility] [place] 2022-09-10 00:00 RALOXIFENE HCL [facility] [place] 2022-09-16 00:00 RALOXIFENE HCL [facility] [place] 2022-09-08 00:00 ASPIRIN [facility] [place] 2022-09-09 00:00 ASPIRIN [facility] [place] 2022-09-10 00:00 ASPIRIN [facility] [place] 2022-09-16 00:00 ASPIRIN [facility] [place] 2022-09-08 00:00 aspirin [facility] [place] 2022-09-09 00:00 aspirin [facility] [place] 2022-09-10 00:00 aspirin [facility] [place] 2022-09-16 00:00 aspirin [facility] [place] 2022-09-08 00:00 propranolol [facility] [place] 2022-09-09 00:00 propranolol [facility] [place] 2022-09-10 00:00 propranolol [facility] [place] 2022-09-16 00:00 propranolol [facility] [place] 2022-09-08 00:00 metoprolol succinate [facility] [place] 2022-09-09 00:00 metoprolol succinate [facility] [place] 2022-09-10 00:00 metoprolol succinate [facility] [place] 2022-09-16 00:00 metoprolol succinate [facility] [place] 2022-09-08 00:00 amlodipine [facility] [place] 2022-09-09 00:00 amlodipine [facility] [place] 2022-09-10 00:00 amlodipine [facility] [place] 2022-09-16 00:00 amlodipine [facility] [place] 2022-09-08 00:00 losartan [facility] [place] 2022-09-09 00:00 losartan [facility] [place] 2022-09-10 00:00 losartan [facility] [place] 2022-09-16 00:00 losartan [facility] [place] 2022-09-09 00:00 hydrochlorothiazide Walk[facility] [place] 2022-09-08 00:00 LEVOTHYROXINE SODIUM [facility] [place] 2022-09-09 00:00 LEVOTHYROXINE SODIUM [facility] [place] 2022-09-10 00:00 LEVOTHYROXINE SODIUM [facility] [place] 2022-09-16 00:00 LEVOTHYROXINE SODIUM [facility] [place] 2022-09-08 00:00 ASPIRIN [facility] [place] 2022-09-09 00:00 ASPIRIN [facility] [place] 2022-09-10 00:00 ASPIRIN [facility] [place] 2022-09-16 00:00 ASPIRIN [facility] [place] 2022-09-08 00:00 aspirin [facility] [place] 2022-09-09 00:00 aspirin [facility] [place] 2022-09-10 00:00 aspirin [facility] [place] 2022-09-16 00:00 aspirin [facility] [place] 2022-09-08 00:00 atorvastatin [facility] [place] 2022-09-09 00:00 atorvastatin [facility] [place] 2022-09-10 00:00 atorvastatin [facility] [place] 2022-09-16 00:00 atorvastatin [facility] [place] 2022-09-08 00:00 RANITIDINE HCL [facility] [place] 2022-09-09 00:00 RANITIDINE HCL [facility] [place] 2022-09-10 00:00 RANITIDINE HCL [facility] [place] 2022-09-16 00:00 RANITIDINE HCL [facility] [place] 2022-09-09 00:00 hydrochlorothiazide Walk[facility] [place] 2022-09-08 00:00 atorvastatin [facility] [place] 2022-09-09 00:00 atorvastatin [facility] [place] 2022-09-10 00:00 atorvastatin [facility] [place] 2022-09-16 00:00 atorvastatin [facility] [place] 2022-09-08 00:00 RANITIDINE HCL [facility] [place] 2022-09-09 00:00 RANITIDINE HCL [facility] [place] 2022-09-10 00:00 RANITIDINE HCL [facility] [place] 2022-09-16 00:00 RANITIDINE HCL [facility] [place] 2022-09-08 00:00 warfarin [facility] [place] 2022-09-09 00:00 warfarin [facility] [place] 2022-09-10 00:00 warfarin [facility] [place] 2022-09-16 00:00 warfarin [facility] [place] 2022-09-08 00:00 [id number] [facility] [place] 2022-09-09 00:00 [id number] [facility] [place] 2022-09-10 00:00 [id number] [facility] [place] 2022-09-16 00:00 [id number] [facility] [place] 2022-09-08 00:00 RALOXIFENE HCL [facility] [place] 2022-09-09 00:00 RALOXIFENE HCL [facility] [place] 2022-09-10 00:00 RALOXIFENE HCL [facility] [place] 2022-09-16 00:00 RALOXIFENE HCL [facility] [place] 2022-09-08 00:00 losartan [facility] [place] 2022-09-09 00:00 losartan [facility] [place] 2022-09-10 00:00 losartan [facility] [place] 2022-09-16 00:00 losartan [facility] [place] 2022-09-08 00:00 lenalidomide [facility] [place] 2022-09-09 00:00 lenalidomide [facility] [place] 2022-09-10 00:00 lenalidomide [facility] [place] 2022-09-16 00:00 lenalidomide [facility] [place] 2022-09-08 00:00 amlodipine [facility] [place] 2022-09-09 00:00 amlodipine [facility] [place] 2022-09-10 00:00 amlodipine [facility] [place] 2022-09-16 00:00 amlodipine [facility] Esther estes 2022-09-08 00:00 LEVOTHYROXINE SODIUM [facility] [place] 2022-09-09 00:00 LEVOTHYROXINE SODIUM [facility] [place] 2022-09-10 00:00 LEVOTHYROXINE SODIUM [facility] estes 2022-09-16 00:00 LEVOTHYROXINE SODIUM [facility] estes 2022-09-08 00:00 lenalidomide [facility] [place] 2022-09-09 00:00 lenalidomide [facility] [place] 2022-09-10 00:00 lenalidomide [facility] [place] 2022-09-16 00:00 lenalidomide [facility] [place] 2022-09-08 00:00 atorvastatin [facility] estes 2022-09-09 00:00 atorvastatin [facility] estes 2022-09-10 00:00 atorvastatin [facility] [place] 2022-09-16 00:00 atorvastatin [facility] [place] 2022-09-08 00:00 atorvastatin [facility] [place] 2022-09-09 00:00 atorvastatin [facility] [place] 2022-09-10 00:00 atorvastatin [facility] [place] 2022-09-16 00:00 atorvastatin [facility] [place] 2022-09-08 00:00 RANITIDINE HCL [facility] [place] 2022-09-09 00:00 RANITIDINE HCL [facility] [place] 2022-09-10 00:00 RANITIDINE HCL [facility] [place] 2022-09-16 00:00 RANITIDINE HCL [facility] [place] 2022-09-08 00:00 ASPIRIN [facility] [place] 2022-09-09 00:00 ASPIRIN [facility] [place] 2022-09-10 00:00 ASPIRIN [facility] [place] 2022-09-16 00:00 ASPIRIN [facility] [place] 2022-09-08 00:00 aspirin [facility] [place] 2022-09-09 00:00 aspirin [facility] [place] 2022-09-10 00:00 aspirin [facility] [place] 2022-09-16 00:00 aspirin [facility] [place] 2022-09-08 00:00 [id number]-CODEINE Walk[facility] in [facility] [place] 2022-09-09 00:00 [id number]-CODEINE Walk[facility]In [facility] in [facility] [place] 2022-09-10 00:00 [id number]-CODEINE Walk[facility] [place] 2022-09-16 00:00 [id number] Walk[facility] [place] 2022-09-08 00:00 losartan [facility] [place] 2022-09-09 00:00 losartan [facility] [place] 2022-09-10 00:00 losartan [facility] [place] 2022-09-16 00:00 losartan [facility] [place] 2022-09-08 00:00 metoprolol succinate [facility] [place] 2022-09-09 00:00 metoprolol succinate [facility] [place] 2022-09-10 00:00 metoprolol succinate [facility] [place] 2022-09-16 00:00 metoprolol succinate [facility] [place] 2022-09-08 00:00 warfarin [facility] [place] 2022-09-09 00:00 warfarin [facility] [place] 2022-09-10 00:00 warfarin [facility] [place] 2022-09-16 00:00 warfarin [facility] [place] 2022-09-08 00:00 [id number]-CODEINE Walk[facility] [place] 2022-09-09 00:00 [id number]-CODEINE [facility] [place] 2022-09-10 00:00 [id number]-CODEINE [facility]In [facility] [place] 2022-09-16 00:00 [id number]-CODEINE Walk[facility] [place] 2022-09-08 00:00 warfarin [facility] [place] 2022-09-09 00:00 warfarin [facility] [place] 2022-09-10 00:00 warfarin [facility] [place] 2022-09-16 00:00 warfarin [facility] [place] 2022-09-08 00:00 propranolol [facility] [place] 2022-09-09 00:00 propranolol [facility] [place] 2022-09-10 00:00 propranolol [facility] [place] 2022-09-16 00:00 propranolol [facility] [place] 2022-09-08 00:00 metoprolol succinate [facility] [place] 2022-09-09 00:00 metoprolol succinate [facility] [place] 2022-09-10 00:00 metoprolol succinate [facility] [place] 2022-09-16 00:00 metoprolol succinate [facility] [place] 2022-09-08 00:00 levothyroxine [facility] [place] 2022-09-09 00:00 levothyroxine [facility] [place] 2022-09-10 00:00 levothyroxine [facility] [place] 2022-09-16 00:00 levothyroxine [facility] [place] 2022-09-08 00:00 LEVOTHYROXINE SODIUM Walk[facility] [place] 2022-09-09 00:00 LEVOTHYROXINE SODIUM Walk[facility] [place] 2022-09-10 00:00 LEVOTHYROXINE SODIUM [facility] [place] 2022-09-16 00:00 LEVOTHYROXINE SODIUM [facility] [place] 2022-09-08 00:00 losartan [facility] [place] 2022-09-09 00:00 losartan [facility] [place] 2022-09-10 00:00 losartan [facility] estes 2022-09-16 00:00 losartan [facility] [place] 2022-09-08 00:00 lenalidomide [facility] [place] 2022-09-09 00:00 lenalidomide [facility] [place] 2022-09-10 00:00 lenalidomide [facility] estes 2022-09-16 00:00 lenalidomide [facility] [place] 2022-09-08 00:00 lenalidomide [facility] [place] 2022-09-09 00:00 lenalidomide [facility] Esther estes 2022-09-10 00:00 lenalidomide [facility] estes 2022-09-16 00:00 lenalidomide [facility] [place] Problems date description facility 2022-09-08 00:00 Edema of lower extremity [facility] estes 2022-09-08 00:00 Unspecified hypothyroidism Walk-In Cli [facility] Esther estes 2022-09-08 00:00 Migraine, unspecified, without Walk-In Clinic [facility] & mention of intractable migraine, Ancilla ry Services [place] without mention of status migrainosus 2022-09-08 00:00 Migraine [facility] Esther estes 2022-09-08 00:00 Hypothyroidism [facility] estes 2022-09-08 00:00 Diverticulosis of sigmoid colon Walk-I n [facility] estes 2022-09-08 00:00 Diverticulosis of colon (without Walk- In Clinic [facility] & mention of hemorrhage) Ancillary Service s [facility] 2022-09-08 00:00 Edema [facility] [place] 2022-09-08 00:00 Hypothyroidism, unspecified Walk-In [facility] [place] 2022-09-08 00:00 Migraine, unspecified, not Walk-In Cli [facility] & intractable, without status Ancillary Se rvices [facility] migrainosus 2022-09-08 00:00 Diverticulosis of large intestine Walk- In Clinic [facility] & without perforation or abscess Ancillary Services [facility] without bleeding 2022-09-08 00:00 Localized edema [facility] [place] 2022-09-09 00:00 Unspecified hypothyroidism Walk-In [facility] [place] 2022-09-09 00:00 Migraine, unspecified, without Walk-In Clinic [facility] & mention of intractable migraine, Ancilla ry Services [place] without mention of status migrainosus 2022-09-09 00:00 Migraine [facility] [place] 2022-09-09 00:00 Hypothyroidism [facility] [place] 2022-09-09 00:00 Diverticulosis of sigmoid colon Walk-I n Clinic [facility] [place] 2022-09-09 00:00 Diverticulosis of colon (without Walk- In Clinic [facility] & mention of hemorrhage) Ancillary Service [facility] [place] 2022-09-09 00:00 Hypothyroidism, unspecified Walk-In Cl [facility] [place] 2022-09-09 00:00 Migraine, unspecified, not Walk-In Cli [facility] & intractable, without status Ancillary Se rvices [place] migrainosus 2022-09-09 00:00 Diverticulosis of large intestine Walk- In Clinic [facility] & without perforation or abscess Ancillary Services [place] without bleeding 2022-09-10 00:00 Unspecified hypothyroidism [facility] [place] 2022-09-10 00:00 Migraine, unspecified, without [facility] & mention of intractable migraine, [facility]illa [facility] [place] without mention of status migrainosus 2022-09-10 00:00 Migraine [facility] [place] 2022-09-10 00:00 Hypothyroidism [facility] [place] 2022-09-10 00:00 Diverticulosis of sigmoid colon [facility] [place] 2022-09-10 00:00 Diverticulosis of colon (without Walk- In [facility] & mention of hemorrhage) Ancillary Service [facility] [place] 2022-09-10 00:00 Hypothyroidism, unspecified [facility] [place] 2022-09-10 00:00 Migraine, unspecified, not [facility] & intractable, without status Ancillary Se rv[facility] [place] migrainosus 2022-09-10 00:00 Diverticulosis of large intestine Walk- In [facility] & without perforation or abscess [facility] [place] without bleeding 2022-09-16 00:00 Unspecified hypothyroidism [facility] 2022-09-16 00:00 Migraine, unspecified, without [facility] & mention of intractable migraine, [facility] [place] without mention of status migrainosus 2022-09-16 00:00 Migraine Walk[facility] 2022-09-16 00:00 Unspecified essential hypertension [facility] 2022-09-16 00:00 Deep venous thrombosis of lower Walk-I n Clinic Primary Care & extremity Ancillary Services [facility] 2022-09-16 00:00 Hypothyroidism Walk[facility] 2022-09-16 00:00 Diverticulosis of sigmoid colon [facility] n [facility] & Anc[facility] Services [facility] 2022-09-16 00:00 Acute venous embolism and thrombosis [facility] & of unspecified deep vessels of lower Anc [facility] [place] extremity 2022-09-16 00:00 Diverticulosis of colon (without Walk- In [facility] Primary [facility] & mention of hemorrhage) Ancillary Service [facility] [place] 2022-09-16 00:00 Essential hypertension [facility] [place] 2022-09-16 00:00 Hypothyroidism, unspecified [facility] [place] 2022-09-16 00:00 Migraine, unspecified, not [facility] & intractable, without status Anc[facility] Se [facility] [place] migrainosus 2022-09-16 00:00 Essential (primary) hypertension [facility] [place] 2022-09-16 00:00 Acute embolism and thrombosis of Walk- In [facility] Primary Care & unspecified deep veins of left lower Anc ill[facility] [place] extremity 2022-09-16 00:00 Orthostatic hypotension [facility] [place] 2022-09-16 00:00 Diverticulosis of large intestine Walk- In [facility] & without perforation or abscess [facility] [place] without bleeding Procedures date description facility 2022-09-08 00:00 Visit Code Hold [facility] 2022-09-16 00:00 Visit Code Hold [facility] [place] 2022-09-08 00:00 Basic Metabolic Panel (BMP) Walk-In Cl in [facility] & Ancillary Services [facility] 2022-09-08 00:00 B-IMPORT AND EXPORT CLERK Walk[facility] 2022-09-08 00:00 CBC W/Diff/Plt Walk[facility] Results/Labs test date author facility value unit interpret ation Result panel 1 (unknown) (no date) (unknown) Walk-In (no value) (units (unk nown) Clinic Primary unknown) [facility] [place] Result panel 2 (unknown) (no date) (unknown) Walk-In (no value) (units (unk nown) Clinic Primary unknown) [facility] [place] Result panel 3 (unknown) (no date) (unknown) Walk-In (no value) (units (unk nown) Clinic Primary unknown) [facility] [place] Result panel 4 (unknown) (no date) (unknown) Walk-In (no value) (units (unk nown) Clinic Primary unknown) [facility] [place] Result panel 5 (unknown) (no date) (unknown) Walk-In (no value) (units (unk nown) Clinic Primary unknown) [facility] [place] Result panel 6 (unknown) (no date) (unknown) Walk-In (no value) (units (unk nown) Clinic Primary unknown) [facility] [place] Result panel 7 (unknown) (no date) (unknown) Walk-In (no value) (units (unk nown) Clinic Primary unknown) [facility] [place] Result panel 8 (unknown) (no date) (unknown) Walk-In (no value) (units (unk nown) Clinic Primary unknown) [facility] [place] Result panel 9 (unknown) (no date) (unknown) Walk-In (no value) (units (unk nown) Clinic Primary unknown) [facility] [place] Result panel 10 (unknown) (no date) (unknown) Walk-In (no value) (units (unk nown) Clinic Primary unknown) [facility] [place] Result panel 11 (unknown) (no date) (unknown) Walk-In (no value) (units (unk nown) Clinic Primary unknown) [facility] [place] Result panel 12 (unknown) (no date) (unknown) Walk-In (no value) (units (unk nown) Clinic Primary unknown) [facility] [place] Result panel 13 (unknown) (no date) (unknown) Walk-In (no value) (units (unk nown) Clinic Primary unknown) [facility] [place] Result panel 14 (unknown) (no date) (unknown) Walk-In (no value) (units (unk nown) Clinic Primary unknown) [facility] [place] Result panel 15 (unknown) (no date) (unknown) Walk-In (no value) (units (unk nown) Clinic Primary unknown) [facility] [place] Result panel 16 (unknown) (no date) (unknown) Walk-In (no value) (units (unk nown) Clinic Primary unknown) [facility] [place] Result panel 17 (unknown) (no date) (unknown) Walk-In (no value) (units (unk nown) Clinic Primary unknown) [facility] [place] Result panel 18 (unknown) (no date) (unknown) Walk-In (no value) (units (unk nown) Clinic Primary unknown) [facility] [place] Result panel 19 (unknown) (no date) (unknown) Walk-In (no value) (units (unk nown) Clinic Primary unknown) [facility] [place] Result panel 20 (unknown) (no date) (unknown) Walk-In (no value) (units (unk nown) Clinic Primary unknown) [facility] [place] Result panel 21 (unknown) (no date) (unknown) Walk-In (no value) (units (unk nown) Clinic Primary unknown) [facility] [place] Result panel 22 (unknown) (no date) (unknown) Walk-In (no value) (units (unk nown) Clinic Primary unknown) [facility] [place] Result panel 23 (unknown) (no date) (unknown) Walk-In (no value) (units (unk nown) Clinic Primary unknown) [facility] [place] Result panel 24 (unknown) (no date) (unknown) Walk-In (no value) (units (unk nown) Clinic Primary unknown) [facility] [place] Result panel 25 (unknown) (no date) (unknown) Walk-In (no value) (units (unk nown) Clinic Primary unknown) [facility] [place] Result panel 26 (unknown) (no date) (unknown) Walk-In (no value) (units (unk nown) Clinic Primary unknown) [facility] [place] Result panel 27 (unknown) (no date) (unknown) Walk-In (no value) (units (unk nown) Clinic Primary unknown) [facility] [place] Result panel 28 (unknown) (no date) (unknown) Walk-In (no value) (units (unk nown) Clinic Primary unknown) [facility] [place] Result panel 29 (unknown) (no date) (unknown) Walk-In (no value) (units (unk nown) Clinic Primary unknown) [facility] [place] Result panel 30 (unknown) (no date) (unknown) Walk-In (no value) (units (unk nown) Clinic Primary unknown) [facility] [place] Result panel 31 (unknown) (no date) (unknown) Walk-In (no value) (units (unk nown) Clinic Primary unknown) [facility] [place] Result panel 32 (unknown) (no date) (unknown) Walk-In (no value) (units (unk nown) Clinic Primary unknown) [facility] [place] Result panel 33 (unknown) (no date) (unknown) Walk-In (no value) (units (unk nown) Clinic Primary unknown) [facility] [place] Result panel 34 (unknown) (no date) (unknown) Walk-In (no value) (units (unk nown) Clinic Primary unknown) [facility] [place] Result panel 35 (unknown) (no date) (unknown) Walk-In (no value) (units (unk nown) Clinic Primary unknown) [facility] [place] Result panel 36 (unknown) (no date) (unknown) Walk-In (no value) (units (unk nown) Clinic Primary unknown) [facility] [place] Result panel 37 (unknown) (no date) (unknown) Walk-In (no value) (units (unk nown) Clinic Primary unknown) [facility] [place] Result panel 38 (unknown) (no date) (unknown) Walk-In (no value) (units (unk nown) Clinic Primary unknown) [facility] [place] Result panel 39 (unknown) (no date) (unknown) Walk-In (no value) (units (unk nown) Clinic Primary unknown) [facility] [place] Result panel 40 (unknown) (no date) (unknown) Walk-In (no value) (units (unk nown) Clinic Primary unknown) [facility] [place] Result panel 41 (unknown) (no date) (unknown) Walk-In (no value) (units (unk nown) Clinic Primary unknown) [facility] [place] Result panel 42 (unknown) (no date) (unknown) Walk-In (no value) (units (unk nown) Clinic Primary unknown) [facility] [place] Result panel 43 (unknown) (no date) (unknown) Walk-In (no value) (units (unk nown) Clinic Primary unknown) [facility] [place] Result panel 44 (unknown) (no date) (unknown) Walk-In (no value) (units (unk nown) Clinic Primary unknown[facility] [place] Result panel 45 (unknown) (no date) (unknown) Walk-In (no value) (units (unk nown) Clinic Primary unknown) [facility] [place] Result panel 46 (unknown) (no date) (unknown) Walk-In (no value) (units (unk nown) Clinic Primary unknown) [facility] [place] Result panel 47 (unknown) (no date) (unknown) Walk-In (no value) (units (unk nown) Clinic Primary unknown) [facility] [place] Result panel 48 (unknown) (no date) (unknown) Walk-In (no value) (units (unk nown) Clinic Primary unknown) [facility] [place] Result panel 49 (unknown) (no date) (unknown) Walk-In (no value) (units (unk nown) Clinic Primary unknown) [facility] [place] Result panel 50 (unknown) (no date) (unknown) Walk-In (no value) (units (unk nown) Clinic Primary unknown) [facility] [place] Result panel 51 (unknown) (no date) (unknown) Walk-In (no value) (units (unk nown) Clinic Primary unknown) [facility] [place] Result panel 52 (unknown) (no date) (unknown) Walk-In (no value) (units (unk nown) Clinic Primary unknown[facility] [place] Result panel 53 (unknown) (no date) (unknown) Walk-In (no value) (units (unk nown) Clinic Primary unknown[facility] [place] Result panel 54 (unknown) (no date) (unknown) Walk-In (no value) (units (unk nown) Clinic Primary unknown) [facility] [place] Result panel 55 (unknown) (no date) (unknown) Walk-In (no value) (units (unk nown) Clinic Primary unknown) [facility] [place] Result panel 56 (unknown) (no date) (unknown) Walk-In (no value) (units (unk nown) Clinic Primary unknown[facility] [place] Result panel 57 (unknown) (no date) (unknown) Walk-In (no value) (units (unk nown) Clinic Primary unknown) [facility] [place] Result panel 58 (unknown) (no date) (unknown) Walk-In (no value) (units (unk nown) Clinic Primary unknown) [facility] [place] Result panel 59 (unknown) (no date) (unknown) Walk-In (no value) (units (unk nown) Clinic Primary unknown[facility] [place] Result panel 60 (unknown) (no date) (unknown) Walk-In (no value) (units (unk nown) Clinic Primary unknown[facility] [place] Result panel 61 (unknown) (no date) (unknown) Walk-In (no value) (units (unk nown) Clinic Primary unknown[facility] [place] Result panel 62 (unknown) (no date) (unknown) Walk-In (no value) (units (unk nown) Clinic Primary unknown) [facility] [place] Result panel 63 (unknown) (no date) (unknown) Walk-In (no value) (units (unk nown) Clinic Primary unknown[facility] [place] Result panel 64 (unknown) (no date) (unknown) Walk-In (no value) (units (unk nown) Clinic Primary unknown[facility] [place] Result panel 65 (unknown) (no date) (unknown) Walk-In (no value) (units (unk nown) Clinic Primary unknown[facility] [place] Result panel 66 (unknown) (no date) (unknown) Walk-In (no value) (units (unk nown) Clinic Primary unknown[facility] [place] Result panel 67 (unknown) (no date) (unknown) Walk-In (no value) (units (unk nown) Clinic Primary unknown[facility] [place] Result panel 68 (unknown) (no date) (unknown) Walk-In (no value) (units (unk nown) [facility] Primary unknown[facility] [place] Result panel 69 (unknown) (no date) (unknown) Walk-In (no value) (units (unk nown) Clinic Primary unknown[facility] [place] Result panel 70 (unknown) (no date) (unknown) Walk-In (no value) (units (unk nown) Clinic Primary unknown[facility] [place] Result panel 71 (unknown) (no date) (unknown) Walk-In (no value) (units (unk nown) Clinic Primary unknown[facility] [place] Result panel 72 (unknown) (no date) (unknown) Walk-In (no value) (units (unk nown) Clinic Primary unknown) [facility] [place] Result panel 73 (unknown) (no date) (unknown) Walk-In (no value) (units (unk nown) Clinic Primary unknown) [facility] [place] Result panel 74 (unknown) (no date) (unknown) Walk-In (no value) (units (unk nown) Clinic Primary unknown) [facility] [place] Result panel 75 (unknown) (no date) (unknown) Walk-In (no value) (units (unk nown) Clinic Primary unknown) [facility] [place] Result panel 76 (unknown) (no date) (unknown) Walk-In (no value) (units (unk nown) Clinic Primary unknown) [facility] [place] Result panel 77 (unknown) (no date) (unknown) Walk-In (no value) (units (unk nown) Clinic Primary unknown) [facility] [place] Result panel 78 (unknown) (no date) (unknown) Walk-In (no value) (units (unk nown) Clinic Primary unknown) [facility] [place] Result panel 79 (unknown) (no date) (unknown) Walk-In (no value) (units (unk nown) Clinic Primary unknown) [facility] [place] Result panel 80 (unknown) (no date) (unknown) Walk-In (no value) (units (unk nown) Clinic Primary unknown) [facility] [place] Result panel 81 (unknown) (no date) (unknown) Walk-In (no value) (units (unk nown) Clinic Primary unknown) [facility] [place] Result panel 82 (unknown) (no date) (unknown) Walk-In (no value) (units (unk nown) Clinic Primary unknown) [facility] [place] Result panel 83 (unknown) (no date) (unknown) Walk-In (no value) (units (unk nown) Clinic Primary unknown) [facility] [place] Result panel 84 (unknown) (no date) (unknown) Walk-In (no value) (units (unk nown) Clinic Primary unknown) [facility] [place] Result panel 85 (unknown) (no date) (unknown) Walk-In (no value) (units (unk nown) Clinic Primary unknown) [facility] [place] Result panel 86 (unknown) (no date) (unknown) Walk-In (no value) (units (unk nown) Clinic Primary unknown) [facility] [place] Result panel 87 (unknown) (no date) (unknown) Walk-In (no value) (units (unk nown) Clinic Primary unknown) [facility] [place] Result panel 88 (unknown) (no date) (unknown) Walk-In (no value) (units (unk nown) Clinic Primary unknown) [facility] [place] Result panel 89 (unknown) (no date) (unknown) Walk-In (no value) (units (unk nown) Clinic Primary unknown) [facility] [place] Result panel 90 (unknown) (no date) (unknown) Walk-In (no value) (units (unk nown) Clinic Primary unknown) [facility] [place] Result panel 91 (unknown) (no date) (unknown) Walk-In (no value) (units (unk nown) Clinic Primary unknown) [facility] [place] Result panel 92 (unknown) (no date) (unknown) Walk-In (no value) (units (unk nown) Clinic Primary unknown) [facility] [place] Result panel 93 (unknown) (no date) (unknown) Walk-In (no value) (units (unk nown) Clinic Primary unknown) [facility] [place] Result panel 94 (unknown) (no date) (unknown) Walk-In (no value) (units (unk nown) Clinic Primary unknown) [facility] [place] Result panel 95 (unknown) (no date) (unknown) Walk-In (no value) (units (unk nown) Clinic Primary unknown) [facility] [place] Result panel 96 (unknown) (no date) (unknown) Walk-In (no value) (units (unk nown) Clinic Primary unknown) [facility] [place] Result panel 97 (unknown) (no date) (unknown) Walk-In (no value) (units (unk nown) Clinic Primary unknown) [facility] [place] Result panel 98 (unknown) (no date) (unknown) Walk-In (no value) (units (unk nown) Clinic Primary unknown) [facility] [place] Result panel 99 (unknown) (no date) (unknown) Walk-In (no value) (units (unk nown) Clinic Primary unknown) [facility] [place] Result panel 100 (unknown) (no date) (unknown) Walk-In (no value) (units (unk nown) Clinic Primary unknown) [facility] [place] Result panel 101 (unknown) (no date) (unknown) Walk-In (no value) (units (unk nown) Clinic Primary unknown) [facility] [place] Result panel 102 (unknown) (no date) (unknown) Walk-In (no value) (units (unk nown) Clinic Primary unknown) [facility] [place] Result panel 103 (unknown) (no date) (unknown) Walk-In (no value) (units (unk nown) Clinic Primary unknown) [facility] [place] Result panel 104 (unknown) (no date) (unknown) Walk-In (no value) (units (unk nown) Clinic Primary unknown) [facility] [place] Result panel 105 (unknown) (no date) (unknown) Walk-In (no value) (units (unk nown) Clinic Primary unknown) [facility] [place] Result panel 106 (unknown) (no date) (unknown) Walk-In (no value) (units (unk nown) Clinic Primary unknown[facility] [place] Result panel 107 (unknown) (no date) (unknown) Walk-In (no value) (units (unk nown) Clinic Primary unknown[facility] [place] Result panel 108 (unknown) (no date) (unknown) Walk-In (no value) (units (unk nown) Clinic Primary unknown[facility] [place] Result panel 109 (unknown) (no date) (unknown) Walk-In (no value) (units (unk nown) Clinic Primary unknown) [facility] [place] Result panel 110 (unknown) (no date) (unknown) Walk-In (no value) (units (unk nown) Clinic Primary unknown) [facility] [place] Result panel 111 (unknown) (no date) (unknown) Walk-In (no value) (units (unk nown) Clinic Primary unknown) [facility] [place] Result panel 112 (unknown) (no date) (unknown) Walk-In (no value) (units (unk nown) Clinic Primary unknown) [facility] [place] Result panel 113 (unknown) (no date) (unknown) Walk-In (no value) (units (unk nown) Clinic Primary unknown) [facility] [place] Result panel 114 (unknown) (no date) (unknown) Walk-In (no value) (units (unk nown) Clinic Primary unknown) [facility] [place] Result panel 115 (unknown) (no date) (unknown) Walk-In (no value) (units (unk nown) Clinic Primary unknown) [facility] [place] Result panel 116 (unknown) (no date) (unknown) Walk-In (no value) (units (unk nown) Clinic Primary unknown) [facility] [place] Result panel 117 (unknown) (no date) (unknown) Walk-In (no value) (units (unk nown) Clinic Primary unknown) [facility] [place] Result panel 118 (unknown) (no date) (unknown) Walk-In (no value) (units (unk nown) Clinic Primary unknown) [facility] [place] Result panel 119 (unknown) (no date) (unknown) Walk-In (no value) (units (unk nown) Clinic Primary unknown) [facility] [place] Result panel 120 (unknown) (no date) (unknown) Walk-In (no value) (units (unk nown) Clinic Primary unknown) [facility] [place] Result panel 121 (unknown) (no date) (unknown) Walk-In (no value) (units (unk nown) Clinic Primary unknown) [facility] [place] Result panel 122 (unknown) (no date) (unknown) Walk-In (no value) (units (unk nown) Clinic Primary unknown) [facility] [place] Result panel 123 (unknown) (no date) (unknown) Walk-In (no value) (units (unk nown) Clinic Primary unknown) [facility] [place] Result panel 124 (unknown) (no date) (unknown) Walk-In (no value) (units (unk nown) Clinic [facility] unknown) [facility] [place] Result panel 125 (unknown) (no date) (unknown) Walk-In (no value) (units (unk nown) Clinic Primary unknown) [facility] [place] Result panel 126 (unknown) (no date) (unknown) Walk-In (no value) (units (unk nown) Clinic Primary unknown) [facility] [place] Result panel 127 (unknown) (no date) (unknown) Walk-In (no value) (units (unk nown) Clinic Primary unknown) [facility] [place] Result panel 128 (unknown) (no date) (unknown) Walk-In (no value) (units (unk nown) Clinic Primary unknown) [facility] Result panel 129 (unknown) (no date) (unknown) Walk-In (no value) (units (unk nown) Clinic Primary unknown) [facility] Result panel 130 (unknown) (no date) (unknown) Walk-In (no value) (units (unk nown) Clinic Primary unknown) [facility] Result panel 131 (unknown) (no date) (unknown) Walk-In (no value) (units (unk nown) Clinic Primary unknown) [facility] [place] Result panel 132 (unknown) (no date) (unknown) Walk-In (no value) (units (unk nown) Clinic Primary unknown) [facility] [place] Result panel 133 (unknown) (no date) (unknown) Walk-In (no value) (units (unk nown) Clinic Primary unknown) [facility] Result panel 134 (unknown) (no date) (unknown) Walk-In (no value) (units (unk nown) Clinic Primary unknown) [facility] Result panel 135 (unknown) (no date) (unknown) Walk-In (no value) (units (unk nown) Clinic Primary unknown) [facility] [place] Result panel 136 (unknown) (no date) (unknown) Walk-In (no value) (units (unk nown) Clinic Primary unknown) [facility] [place] Result panel 137 (unknown) (no date) (unknown) Walk-In (no value) (units (unk nown) Clinic Primary unknown) [facility] [place] Result panel 138 (unknown) (no date) (unknown) Walk-In (no value) (units (unk nown) Clinic [facility] unknown) [facility] [place] Result panel 139 (unknown) (no date) (unknown) Walk-In (no value) (units (unk nown) Clinic Primary unknown) [facility] Result panel 140 (unknown) (no date) (unknown) Walk-In (no value) (units (unk nown) Clinic Primary unknown[facility] Result panel 141 (unknown) (no date) (unknown) Walk-In (no value) (units (unk nown) Clinic Primary unknown) [facility] [facility] Result panel 142 (unknown) (no date) (unknown) [facility] (no value) [facility]units [facility]own[facility] Result panel 143 (unknown) (no date) (unknown) [facility] (no value) (units [facility]) [facility] Result panel 144 (unknown) (no date) (unknown) [facility] (no value) (units [facility]own[facility]) [facility] Result panel 145 (unknown) (no date) (unknown) Walk-[facility] (no value) (units [facility]own[facility]) [facility] Result panel 146 (unknown) (no date) (unknown) [facility] (no value) (units ([facility]own[facility]) [facility] Result panel 147 (unknown) (no date) (unknown) Walk-[facility] (no value) (units ([facility]own[facility]) [facility] Result panel 148 (unknown) (no date) (unknown) Walk-[facility] (no value) (units ([facility]) [facility] Result panel 149 (unknown) (no date) (unknown) Walk-[facility] (no value) (units ([facility]own[facility]) [facility] Result panel 150 (unknown) (no date) (unknown) Walk-[facility] (no value) (units ([facility]) [facility] Result panel 151 (unknown) (no date) (unknown) Walk-[facility] (no value) (units ([facility]own[facility]) [facility] Result panel 152 (unknown) (no date) (unknown) Walk-[facility] (no value) (units ([facility]own[facility]) [facility] Result panel 153 (unknown) (no date) (unknown) Walk-[facility] (no value) (units ([facility]own[facility]) [facility] Result panel 154 (unknown) (no date) (unknown) Walk-[facility] (no value) (units ([facility]own[facility]) [facility] Result panel 155 (unknown) (no date) (unknown) Walk-[facility] (no value) (units ([facility]own[facility]) [facility] Result panel 156 (unknown) (no date) (unknown) Walk-[facility] (no value) (units ([facility]own[facility] unknown) [facility] Social History date description facility 2022-09-08 00:00 Never smoker Walk-In [facility] 2022-09-16 00:00 Never smoker Walk-In [facility] Vital Signs date measurement value units 2022-09-08 00:00 BMI 26.93 kg/m2 2022-09-08 00:00 BP_diastolic 72 mmHg 2022-09-08 00:00 BP_systolic 126 mmHg 2022-09-08 00:00 heart_rate 55 /min 2022-09-08 00:00 height_metric 164.47 cm 2022-09-08 00:00 height_standard 64.75 in 2022-09-08 00:00 respiration_rate 16 /min 2022-09-08 00:00 temperature_metric 36.39 C 2022-09-08 00:00 temperature_standard 97.5 F 2022-09-08 00:00 weight_metric 72.57 kg 2022-09-08 00:00 weight_standard 160 lb 2022-09-16 00:00 BMI 27.10 kg/m2 2022-09-16 00:00 BP_diastolic 52 mmHg 2022-09-16 00:00 BP_diastolic 67 mmHg 2022-09-16 00:00 BP_systolic 123 mmHg 2022-09-16 00:00 BP_systolic 75 mmHg 2022-09-16 00:00 heart_rate 57 /min 2022-09-16 00:00 height_metric 164.47 cm 2022-09-16 00:00 height_standard 64.75 in 2022-09-16 00:00 respiration_rate 18 /min 2022-09-16 00:00 temperature_metric 36.5 C 2022-09-16 00:00 temperature_standard 97.7 F 2022-09-16 00:00 weight_metric 73.03 kg 2022-09-16 00:00 weight_standard 161 lb
[2022-09-16 21:02] VITALS: BP 160/70
== END 2022-09-16 20:45 | disposition home or self-care (01) ==
LOC: EDUNIT# → ED 19:04
DX: E86.0 Dehydration (principal); R42 Dizziness and giddiness; R60.0 Localized edema; Z86.73 Personal history of transient ischemic attack (TIA), and cerebral infarction without residual deficits; I48.91 Unspecified atrial fibrillation; Z79.01 Long term (current) use of anticoagulants
CPT/HCPCS: 36415; 80053; 85025; 93005; 96360; 99284

== ENCOUNTER 2022-10-20 13:39 | Outpatient (CLI) | payer MEDICARE, OTHER | END 2022-10-20 13:40 | disposition home or self-care (01) | LOC: LAB.S 13:39 | PROVIDERS: ATTEND Family Medicine | DX: Z51.81 Encounter for therapeutic drug level monitoring (principal); Z79.01 Long term (current) use of anticoagulants | CPT/HCPCS: 36416; 85610 ==

== ENCOUNTER 2022-12-01 09:43 | Outpatient (CLI) | payer MEDICARE, OTHER | END 2022-12-01 09:44 | disposition home or self-care (01) | LOC: LAB.S 09:43 | PROVIDERS: ATTEND Family Medicine | DX: Z51.81 Encounter for therapeutic drug level monitoring (principal); Z79.01 Long term (current) use of anticoagulants | CPT/HCPCS: 36416; 85610 ==

== ENCOUNTER 2023-01-13 10:25 | Outpatient (CLI) | payer MEDICARE, OTHER | END 2023-01-13 10:26 | disposition home or self-care (01) | LOC: LAB.S 10:25 | PROVIDERS: ATTEND Family Medicine | DX: Z51.81 Encounter for therapeutic drug level monitoring (principal); Z79.01 Long term (current) use of anticoagulants | CPT/HCPCS: 36416; 85610 ==

== ENCOUNTER 2023-02-24 11:08 | Outpatient (CLI) | payer MEDICARE, OTHER | END 2023-02-24 11:09 | disposition home or self-care (01) | LOC: LAB.S 11:08 | PROVIDERS: ATTEND Family Medicine | DX: Z51.81 Encounter for therapeutic drug level monitoring (principal); Z79.01 Long term (current) use of anticoagulants | CPT/HCPCS: 36416; 85610 ==

== ENCOUNTER 2023-03-24 10:44 | Outpatient (CLI) | payer MEDICARE, OTHER | END 2023-03-24 10:45 | disposition home or self-care (01) | LOC: LAB.S 10:44 | PROVIDERS: ATTEND Family Medicine | DX: Z51.81 Encounter for therapeutic drug level monitoring (principal); Z79.01 Long term (current) use of anticoagulants | CPT/HCPCS: 36416; 85610 ==

== ENCOUNTER 2023-04-02 08:00 | Outpatient (CLI) | payer MEDICARE, OTHER ==
[2023-04-02 19:04] LABS: CLARITY,URINE SL. CLOUDY (CLEAR)
[2023-04-02 19:05] LABS: BILIRUBIN,URINE COLOR INTERFERENCE (NEGATIVE)
[2023-04-02 19:06] LABS: BACTERIA,URINE Few /HPF (None Seen); RBC,URINE None Seen /HPF (0-5); SQUAMOUS EPITHELIAL CELL,UR FEW Squamous (<= Few); WBC CLUMPS,URINE PRESENT; WBC,URINE >25 /HPF (0-5)
== END 2023-04-02 23:59 | disposition home or self-care (01) ==
LOC: LAB.S 08:00
PROVIDERS: ATTEND Emergency Medicine
DX: R39.15 Urgency of urination (principal)
CPT/HCPCS: 81001; 87086

== ENCOUNTER 2023-04-22 08:26 | Outpatient (CLI) | payer MEDICARE, OTHER | END 2023-04-22 08:27 | disposition home or self-care (01) | LOC: LAB.S 08:26 | PROVIDERS: ATTEND Family Medicine | DX: Z51.81 Encounter for therapeutic drug level monitoring (principal); Z79.01 Long term (current) use of anticoagulants | CPT/HCPCS: 36416; 85610 ==

== ENCOUNTER 2023-04-28 16:25 | Outpatient (CLI) | payer MEDICARE, OTHER | END 2023-04-28 23:59 | disposition home or self-care (01) | LOC: LAB.S 16:25 | PROVIDERS: ATTEND Physician Assistant Medical | DX: N30.00 Acute cystitis without hematuria (principal) | CPT/HCPCS: 87086; 87181 ==

== ENCOUNTER 2023-05-01 22:28 | Emergency (ER) | payer MEDICARE, OTHER ==
[2023-05-01 22:44] VITALS: BP 134/68; O2SAT 95
--- OUTSIDE RECORDS SUMMARY | 2023-05-01 22:57 | EXTERNAL MEDICAL SUMMARY RPT | Continuity of Care Document ---
Author Name Unknown Address [address] [place] [address] Phone Organization [facility] Address [address] [place] [address] Phone Care Team Providers Care Student Affairs Dean Name Role Phone Unavailable Unavailable Unavailable Breann Sharif, Abdirashid Unavailable Unavailable Jeannie Andersen, Marcos Unavailable Unavailable Hernandez Patient Registrar Ii, Yani Unavaila ble Unavailable Dayday Patient Registrar, Zander Unavailable U navailable Dayday Patient Registrar, Zander Unavailable U navailable Hernandez Patient Registrar Ii, Yani Unavaila ble Unavailable Dayday Patient Registrar, Zander Unavailable U navailable Dayday Patient Registrar, Zander Unavailable U navailable Hernandez Patient Registrar Ii, Yani Unavaila ble Unavailable Medications date description facility 2023-04-02 00:00 [facility] [place] 2023-04-02 00:00 [facility] 2023-04-04 00:00 [facility]ENE [facility] 2023-04-04 00:00 [facility]ENE [facility] 2023-04-04 00:00 [facility]ENE [facility] 2023-04-28 00:00 R[facility]OX[facility]ENE [facility] 2023-04-28 00:00 [facility] 2023-04-29 00:00 [facility]OX[facility]ENE [facility] 2023-04-29 00:00 [facility]ENE [facility] 2023-04-30 00:00 [facility]OX[facility]ENE [facility] 2023-04-02 00:00 mupirocin [facility] [place] 2023-04-02 00:00 mupirocin [facility] [place] 2023-04-04 00:00 mupirocin [facility] [place] 2023-04-04 00:00 mupirocin [facility] [place] 2023-04-04 00:00 mupirocin [facility] [place] [facility] 2023-04-28 00:00 mupirocin [facility] [place] 2023-04-28 00:00 mupirocin [facility] [place] 2023-04-29 00:00 mupirocin [facility] [place] 2023-04-29 00:00 mupirocin [facility] [place] 2023-04-30 00:00 mupirocin [facility] [place] 2023-04-02 00:00 cephalexin [facility] [place] 2023-04-02 00:00 cephalexin [facility] [place] 2023-04-02 00:00 cephalexin [facility] [place] 2023-04-02 00:00 cephalexin [facility] [place] 2023-04-02 00:00 cephalexin [facility] [place] 2023-04-02 00:00 cephalexin [facility] [place] 2023-04-02 00:00 cephalexin [facility] [place] 2023-04-02 00:00 cephalexin [facility] [place] 2023-04-02 00:00 cephalexin [facility] [place] 2023-04-02 00:00 propranolol [facility] [place] 2023-04-02 00:00 propranolol [facility] [place] 2023-04-04 00:00 propranolol [facility] [place] 2023-04-04 00:00 propranolol [facility] 2023-04-04 00:00 propranolol [facility] 2023-04-28 00:00 propranolol [facility] 2023-04-28 00:00 propranolol [facility] 2023-04-29 00:00 propranolol [facility] 2023-04-29 00:00 propranolol [facility] 2023-04-30 00:00 propranolol [facility] 2023-04-02 00:00 levothyroxine [facility] 2023-04-02 00:00 levothyroxine [facility] 2023-04-04 00:00 levothyroxine [facility] 2023-04-04 00:00 levothyroxine [facility] 2023-04-04 00:00 levothyroxine [facility] 2023-04-28 00:00 levothyroxine [facility] 2023-04-28 00:00 levothyroxine [facility] 2023-04-29 00:00 levothyroxine [facility] 2023-04-29 00:00 levothyroxine [facility] [place] 2023-04-30 00:00 levothyroxine [facility] [place] 2023-04-02 00:00 metoprolol succinate [facility] [place] 2023-04-02 00:00 metoprolol succinate Walk[facility]In Cl [facility] [place] 2023-04-04 00:00 metoprolol succinate Walk[facility] [place] 2023-04-04 00:00 metoprolol succinate Walk[facility] [place] 2023-04-04 00:00 metoprolol succinate Walk[facility] [place] 2023-04-28 00:00 metoprolol succinate [facility] [place] 2023-04-28 00:00 metoprolol succinate [facility] [place] 2023-04-29 00:00 metoprolol succinate [facility] [place] 2023-04-29 00:00 metoprolol succinate [facility] [place] 2023-04-30 00:00 metoprolol succinate [facility] [place] 2023-04-02 00:00 cephalexin [facility] [place] 2023-04-02 00:00 cephalexin [facility] [place] 2023-04-02 00:00 cephalexin [facility] [place] 2023-04-02 00:00 cephalexin [facility] [place] 2023-04-02 00:00 cephalexin [facility] [place] 2023-04-02 00:00 cephalexin [facility] [place] 2023-04-02 00:00 cephalexin [facility] [place] 2023-04-02 00:00 cephalexin [facility] [place] 2023-04-02 00:00 cephalexin [facility] [place] 2023-04-02 00:00 ASPIRIN [facility] [place] 2023-04-02 00:00 ASPIRIN [facility] [place] 2023-04-04 00:00 ASPIRIN [facility] [place] 2023-04-04 00:00 ASPIRIN [facility] [place] 2023-04-04 00:00 ASPIRIN [facility] [place] 2023-04-28 00:00 ASPIRIN [facility] [place] 2023-04-28 00:00 ASPIRIN [facility] [place] 2023-04-29 00:00 ASPIRIN [facility] [place] 2023-04-29 00:00 ASPIRIN [facility] [place] 2023-04-30 00:00 ASPIRIN [facility] [place] 2023-04-02 00:00 aspirin [facility] [place] 2023-04-02 00:00 aspirin [facility] [place] 2023-04-04 00:00 aspirin [facility] [place] 2023-04-04 00:00 aspirin [facility] [place] 2023-04-04 00:00 aspirin [facility] [place] 2023-04-28 00:00 aspirin [facility] [place] 2023-04-28 00:00 aspirin [facility] [place] 2023-04-29 00:00 aspirin [facility] [place] 2023-04-29 00:00 aspirin [facility] [place] 2023-04-30 00:00 aspirin [facility] [place] 2023-04-02 00:00 mupirocin [facility] [place] 2023-04-02 00:00 mupirocin [facility] [place] 2023-04-04 00:00 mupirocin [facility] [place] 2023-04-04 00:00 mupirocin [facility] [place] 2023-04-04 00:00 mupirocin [facility] [place] 2023-04-28 00:00 mupirocin [facility] [place] 2023-04-28 00:00 mupirocin [facility] [place] 2023-04-29 00:00 mupirocin [facility] [place] 2023-04-29 00:00 mupirocin [facility] [place] 2023-04-30 00:00 mupirocin [facility] [place] 2023-04-02 00:00 levothyroxine [facility] 2023-04-02 00:00 levothyroxine [facility] 2023-04-04 00:00 levothyroxine [facility] 2023-04-04 00:00 levothyroxine [facility] 2023-04-04 00:00 levothyroxine [facility] 2023-04-28 00:00 levothyroxine [facility] 2023-04-28 00:00 levothyroxine [facility] 2023-04-29 00:00 levothyroxine [facility] 2023-04-29 00:00 levothyroxine [facility] 2023-04-30 00:00 levothyroxine [facility] 2023-04-02 00:00 RALOXIFENE HCL [facility] 2023-04-02 00:00 RALOXIFENE HCL [facility] 2023-04-04 00:00 RALOXIFENE HCL [facility] 2023-04-04 00:00 RALOXIFENE HCL [facility] 2023-04-04 00:00 RALOXIFENE HCL [facility] 2023-04-28 00:00 RALOXIFENE HCL [facility] 2023-04-28 00:00 RALOXIFENE HCL [facility] [place] 2023-04-29 00:00 RALOXIFENE HCL [facility] 2023-04-29 00:00 RALOXIFENE HCL [facility] 2023-04-30 00:00 RALOXIFENE HCL [facility] [place] 2023-04-02 00:00 propranolol [facility] 2023-04-02 00:00 propranolol [facility] [place] 2023-04-04 00:00 propranolol [facility] [place] 2023-04-04 00:00 propranolol [facility] [place] 2023-04-04 00:00 propranolol [facility] [place] 2023-04-28 00:00 propranolol [facility] [place] 2023-04-28 00:00 propranolol [facility] [place] 2023-04-29 00:00 propranolol [facility] [place] 2023-04-29 00:00 propranolol [facility] [place] 2023-04-30 00:00 propranolol [facility] [place] 2023-04-02 00:00 amlodipine [facility] [place] 2023-04-02 00:00 amlodipine [facility] [place] 2023-04-04 00:00 amlodipine [facility] [place] 2023-04-04 00:00 amlodipine [facility] [place] 2023-04-04 00:00 amlodipine [facility] [place] 2023-04-28 00:00 amlodipine [facility] [place] 2023-04-28 00:00 amlodipine [facility] [place] 2023-04-29 00:00 amlodipine [facility] [place] 2023-04-29 00:00 amlodipine [facility] [place] 2023-04-30 00:00 amlodipine [facility] [place] 2023-04-02 00:00 warfarin [facility] [place] 2023-04-02 00:00 warfarin [facility] [place] 2023-04-04 00:00 warfarin [facility] [place] 2023-04-04 00:00 warfarin [facility] [place] 2023-04-04 00:00 warfarin [facility] [place] 2023-04-28 00:00 warfarin [facility] [place] 2023-04-28 00:00 warfarin [facility] [place] 2023-04-29 00:00 warfarin [facility] [place] 2023-04-29 00:00 warfarin [facility] [place] 2023-04-30 00:00 warfarin [facility] [place] 2023-04-02 00:00 amlodipine [facility] [place] 2023-04-02 00:00 amlodipine [facility] [place] 2023-04-04 00:00 amlodipine [facility] [place] 2023-04-04 00:00 amlodipine [facility] [place] 2023-04-04 00:00 amlodipine [facility] [place] 2023-04-28 00:00 amlodipine [facility] [place] 2023-04-28 00:00 amlodipine [facility] [place] 2023-04-29 00:00 amlodipine [facility] [place] 2023-04-29 00:00 amlodipine [facility] [place] 2023-04-30 00:00 amlodipine [facility] [place] 2023-04-02 00:00 cephalexin [facility] [place] 2023-04-02 00:00 cephalexin [facility] [place] 2023-04-02 00:00 cephalexin [facility] [place] 2023-04-02 00:00 cephalexin [facility] [place] 2023-04-02 00:00 cephalexin [facility] [place] 2023-04-02 00:00 cephalexin [facility] [place] 2023-04-02 00:00 cephalexin [facility] [place] 2023-04-02 00:00 cephalexin [facility] 2023-04-02 00:00 cephalexin [facility] 2023-04-02 00:00 LEVOTHYROXINE SODIUM [facility] 2023-04-02 00:00 LEVOTHYROXINE SODIUM [facility] 2023-04-04 00:00 LEVOTHYROXINE SODIUM [facility] 2023-04-04 00:00 LEVOTHYROXINE SODIUM [facility] 2023-04-04 00:00 LEVOTHYROXINE SODIUM [facility] 2023-04-28 00:00 LEVOTHYROXINE SODIUM [facility] 2023-04-28 00:00 LEVOTHYROXINE SODIUM [facility] 2023-04-29 00:00 LEVOTHYROXINE SODIUM [facility] 2023-04-29 00:00 LEVOTHYROXINE SODIUM [facility] 2023-04-30 00:00 LEVOTHYROXINE SODIUM [facility] 2023-04-02 00:00 levothyroxine [facility] 2023-04-02 00:00 levothyroxine [facility] 2023-04-04 00:00 levothyroxine [facility] 2023-04-04 00:00 levothyroxine [facility] 2023-04-04 00:00 levothyroxine [facility] 2023-04-28 00:00 levothyroxine [facility] 2023-04-28 00:00 levothyroxine [facility] [place] 2023-04-29 00:00 levothyroxine [facility] [place] 2023-04-29 00:00 levothyroxine [facility] [place] 2023-04-30 00:00 levothyroxine [facility] [place] 2023-04-02 00:00 mupirocin [facility] [place] 2023-04-02 00:00 mupirocin [facility] [place] 2023-04-04 00:00 mupirocin [facility] [place] 2023-04-04 00:00 mupirocin [facility] [place] 2023-04-04 00:00 mupirocin [facility] [place] 2023-04-28 00:00 mupirocin [facility] [place] 2023-04-28 00:00 mupirocin [facility] [place] 2023-04-29 00:00 mupirocin [facility] [place] 2023-04-29 00:00 mupirocin [facility] [place] 2023-04-30 00:00 mupirocin [facility] [place] 2023-04-02 00:00 RALOXIFENE HCL [facility] [place] 2023-04-02 00:00 RALOXIFENE HCL [facility] [place] 2023-04-04 00:00 RALOXIFENE HCL [facility] [place] 2023-04-04 00:00 RALOXIFENE HCL [facility] [place] 2023-04-04 00:00 RALOXIFENE HCL [facility] [place] 2023-04-28 00:00 RALOXIFENE HCL [facility] 2023-04-28 00:00 RALOXIFENE HCL [facility] 2023-04-29 00:00 RALOXIFENE HCL [facility] 2023-04-29 00:00 RALOXIFENE HCL [facility] [place] 2023-04-30 00:00 RALOXIFENE HCL [facility] [place] 2023-04-02 00:00 cephalexin [facility] [place] 2023-04-02 00:00 cephalexin [facility] [place] 2023-04-02 00:00 cephalexin [facility] [place] 2023-04-02 00:00 cephalexin [facility] [place] 2023-04-02 00:00 cephalexin [facility] [place] 2023-04-02 00:00 cephalexin [facility] [place] 2023-04-02 00:00 cephalexin [facility] [place] 2023-04-02 00:00 cephalexin [facility] [place] 2023-04-02 00:00 cephalexin [facility] [place] 2023-04-02 00:00 propranolol [facility] [place] 2023-04-02 00:00 propranolol [facility] [place] 2023-04-04 00:00 propranolol [facility] [place] 2023-04-04 00:00 propranolol [facility] [place] 2023-04-04 00:00 propranolol [facility] [place] 2023-04-28 00:00 propranolol [facility] [place] 2023-04-28 00:00 propranolol [facility] [place] 2023-04-29 00:00 propranolol [facility] [place] 2023-04-29 00:00 propranolol [facility] [place] 2023-04-30 00:00 propranolol [facility] [place] 2023-04-02 00:00 metoprolol succinate [facility] [place] 2023-04-02 00:00 metoprolol succinate [facility] [place] 2023-04-04 00:00 metoprolol succinate [facility] 2023-04-04 00:00 metoprolol succinate [facility] 2023-04-04 00:00 metoprolol succinate [facility] 2023-04-28 00:00 metoprolol succinate [facility] 2023-04-28 00:00 metoprolol succinate [facility] 2023-04-29 00:00 metoprolol succinate [facility] 2023-04-29 00:00 metoprolol succinate [facility] 2023-04-30 00:00 metoprolol succinate Walk[facility]In Cl [facility] [place] 2023-04-02 00:00 amlodipine [facility] 2023-04-02 00:00 amlodipine [facility] 2023-04-04 00:00 amlodipine [facility] 2023-04-04 00:00 amlodipine [facility] 2023-04-04 00:00 amlodipine [facility] 2023-04-28 00:00 amlodipine [facility] 2023-04-28 00:00 amlodipine [facility] 2023-04-29 00:00 amlodipine [facility] 2023-04-29 00:00 amlodipine [facility] 2023-04-30 00:00 amlodipine [facility] 2023-04-02 00:00 losartan [facility] 2023-04-02 00:00 losartan [facility] 2023-04-04 00:00 losartan [facility] 2023-04-04 00:00 losartan [facility] 2023-04-04 00:00 losartan [facility] 2023-04-28 00:00 losartan [facility] 2023-04-28 00:00 losartan [facility] 2023-04-29 00:00 losartan [facility] 2023-04-29 00:00 losartan [facility] 2023-04-30 00:00 losartan [facility] 2023-04-02 00:00 LEVOTHYROXINE SODIUM [facility] [place] 2023-04-02 00:00 LEVOTHYROXINE SODIUM [facility] [place] 2023-04-04 00:00 LEVOTHYROXINE SODIUM [facility] [place] 2023-04-04 00:00 LEVOTHYROXINE SODIUM [facility] [place] 2023-04-04 00:00 LEVOTHYROXINE SODIUM [facility] [place] 2023-04-28 00:00 LEVOTHYROXINE SODIUM [facility] [place] 2023-04-28 00:00 LEVOTHYROXINE SODIUM [facility] [place] 2023-04-29 00:00 LEVOTHYROXINE SODIUM [facility] [place] 2023-04-29 00:00 LEVOTHYROXINE SODIUM [facility] [place] 2023-04-30 00:00 LEVOTHYROXINE SODIUM [facility] [place] 2023-04-02 00:00 [facility] [place] 2023-04-02 00:00 ASP[facility]IN [facility] [place] 2023-04-04 00:00 ASP[facility]IN [facility] [place] 2023-04-04 00:00 [facility] [place] 2023-04-04 00:00 ASP[facility]IN [facility] [place] 2023-04-28 00:00 [facility] [place] 2023-04-28 00:00 ASPIRIN [facility] [place] 2023-04-29 00:00 ASPIRIN [facility] [place] 2023-04-29 00:00 ASPIRIN [facility] [place] 2023-04-30 00:00 ASPIRIN [facility] [place] 2023-04-02 00:00 aspirin [facility] [place] 2023-04-02 00:00 aspirin [facility] [place] 2023-04-04 00:00 aspirin [facility] [place] 2023-04-04 00:00 aspirin [facility] [place] 2023-04-04 00:00 aspirin [facility] [place] 2023-04-28 00:00 aspirin [facility] [place] 2023-04-28 00:00 aspirin [facility] [place] 2023-04-29 00:00 aspirin [facility] [place] 2023-04-29 00:00 aspirin [facility] [place] 2023-04-30 00:00 aspirin [facility] [place] 2023-04-02 00:00 atorvastatin [facility] [place] 2023-04-02 00:00 atorvastatin [facility] [place] 2023-04-04 00:00 atorvastatin [facility] [place] 2023-04-04 00:00 atorvastatin [facility] [place] 2023-04-04 00:00 atorvastatin [facility] [place] 2023-04-28 00:00 atorvastatin [facility] [place] 2023-04-28 00:00 atorvastatin [facility] [place] 2023-04-29 00:00 atorvastatin [facility] [place] 2023-04-29 00:00 atorvastatin [facility] [place] 2023-04-30 00:00 atorvastatin [facility] [place] 2023-04-02 00:00 RANITIDINE HCL [facility] [place] 2023-04-02 00:00 RANITIDINE HCL [facility] [place] 2023-04-04 00:00 RANITIDINE HCL [facility] [place] 2023-04-04 00:00 RANITIDINE HCL [facility] [place] 2023-04-04 00:00 RANITIDINE HCL [facility] [place] 2023-04-28 00:00 RANITIDINE HCL [facility] [place] 2023-04-28 00:00 RANITIDINE HCL [facility] [place] 2023-04-29 00:00 RANITIDINE HCL [facility] [place] 2023-04-29 00:00 RANITIDINE HCL [facility] [place] 2023-04-30 00:00 RANITIDINE HCL [facility] [place] 2023-04-02 00:00 atorvastatin [facility] [place] 2023-04-02 00:00 atorvastatin [facility] [place] 2023-04-04 00:00 atorvastatin [facility] [place] 2023-04-04 00:00 atorvastatin [facility] [place] 2023-04-04 00:00 atorvastatin [facility] [place] 2023-04-28 00:00 atorvastatin [facility] [place] 2023-04-28 00:00 atorvastatin [facility] [place] 2023-04-29 00:00 atorvastatin [facility] [place] 2023-04-29 00:00 atorvastatin [facility] [place] 2023-04-30 00:00 atorvastatin [facility] [place] 2023-04-02 00:00 RANITIDINE HCL [facility] [place] 2023-04-02 00:00 RANITIDINE HCL [facility] [place] 2023-04-04 00:00 RANITIDINE HCL [facility] [place] 2023-04-04 00:00 RANITIDINE HCL [facility] [place] 2023-04-04 00:00 RANITIDINE HCL [facility] [place] 2023-04-28 00:00 RANITIDINE HCL [facility] [place] 2023-04-28 00:00 RANITIDINE HCL [facility] [place] 2023-04-29 00:00 RANITIDINE HCL [facility] [place] 2023-04-29 00:00 RANITIDINE HCL [facility] [place] 2023-04-30 00:00 RANITIDINE HCL [facility] [place] 2023-04-02 00:00 warfarin [facility] [place] 2023-04-02 00:00 warfarin [facility] [place] 2023-04-04 00:00 warfarin [facility] [place] 2023-04-04 00:00 warfarin [facility] [place] 2023-04-04 00:00 warfarin [facility] [place] 2023-04-28 00:00 warfarin [facility] [place] 2023-04-28 00:00 warfarin [facility] [place] 2023-04-29 00:00 warfarin [facility] [place] 2023-04-29 00:00 warfarin [facility] [place] 2023-04-30 00:00 warfarin [facility] [place] 2023-04-02 00:00 KXJCPIKPNA-WJM-NPMX-CODEINE [facility] [place] 2023-04-02 00:00 NCADJQCUHG-GVQ-UFTQ-CODEINE [facility] [place] 2023-04-04 00:00 ZFHWMERFJI-ACN-BLJK-CODEINE [facility] [place] 2023-04-04 00:00 SHGJNNBPAI-SEH-SCYL-CODEINE [facility] [place] 2023-04-04 00:00 KLFAWOGHRE-QWI-GDEN-CODEINE [facility] [place] 2023-04-28 00:00 RQHREFQRSK-VDW-OIOJ-CODEINE [facility] [place] 2023-04-28 00:00 ENZNXDNSLE-WEP-GVLY-CODEINE [facility] [place] 2023-04-29 00:00 ZAVBBAXFRL-ATM-QTYR-CODEINE [facility] [place] 2023-04-29 00:00 IHGNCEHEKT-DRY-YNVQ-CODEINE [facility] [place] 2023-04-30 00:00 XVVHTLNBDE-PWO-KVZW-CODEINE [facility] [place] 2023-04-02 00:00 RALOXIFENE HCL [facility] [place] 2023-04-02 00:00 RALOXIFENE HCL [facility] [place] 2023-04-04 00:00 RALOXIFENE HCL [facility] [place] 2023-04-04 00:00 RALOXIFENE HCL [facility] [place] 2023-04-04 00:00 RALOXIFENE HCL [facility] [place] 2023-04-28 00:00 RALOXIFENE HCL [facility] [place] 2023-04-28 00:00 RALOXIFENE HCL [facility] [place] 2023-04-29 00:00 RALOXIFENE HCL [facility] [place] 2023-04-29 00:00 RALOXIFENE HCL [facility] [place] 2023-04-30 00:00 RALOXIFENE HCL [facility] [place] 2023-04-02 00:00 losartan [facility] [place] 2023-04-02 00:00 losartan [facility] [place] 2023-04-04 00:00 losartan [facility] [place] 2023-04-04 00:00 losartan [facility] [place] 2023-04-04 00:00 losartan [facility] [place] 2023-04-28 00:00 losartan [facility] [place] 2023-04-28 00:00 losartan [facility] [place] 2023-04-29 00:00 losartan [facility] [place] 2023-04-29 00:00 losartan [facility] [place] 2023-04-30 00:00 losartan [facility] [place] 2023-04-02 00:00 lenalidomide [facility] [place] 2023-04-02 00:00 lenalidomide [facility] [place] 2023-04-04 00:00 lenalidomide [facility] [place] 2023-04-04 00:00 lenalidomide [facility] [place] 2023-04-04 00:00 lenalidomide [facility] [place] 2023-04-28 00:00 lenalidomide [facility] [place] 2023-04-28 00:00 lenalidomide [facility] [place] 2023-04-29 00:00 lenalidomide [facility] [place] 2023-04-29 00:00 lenalidomide [facility] [place] 2023-04-30 00:00 lenalidomide [facility] [place] 2023-04-02 00:00 amlodipine [facility] [place] 2023-04-02 00:00 amlodipine [facility] [place] 2023-04-04 00:00 amlodipine [facility] [place] 2023-04-04 00:00 amlodipine [facility] [place] 2023-04-04 00:00 amlodipine [facility] [place] 2023-04-28 00:00 amlodipine [facility] [place] 2023-04-28 00:00 amlodipine [facility] [place] 2023-04-29 00:00 amlodipine [facility] [place] 2023-04-29 00:00 amlodipine [facility] [place] 2023-04-30 00:00 amlodipine [facility] [place] 2023-04-02 00:00 LEVOTHYROXINE SODIUM [facility] [place] 2023-04-02 00:00 LEVOTHYROXINE SODIUM [facility] [place] 2023-04-04 00:00 LEVOTHYROXINE SODIUM [facility] [place] 2023-04-04 00:00 LEVOTHYROXINE SODIUM [facility] [place] 2023-04-04 00:00 LEVOTHYROXINE [facility]IUM [facility] [place] 2023-04-28 00:00 LEVOTHYROXINE SODIUM [facility] [place] 2023-04-28 00:00 LEVOTHYROXINE SODIUM [facility] [place] 2023-04-29 00:00 LEVOTHYROXINE SODIUM [facility] [place] 2023-04-29 00:00 LEVOTHYROXINE SODIUM [facility] [place] 2023-04-30 00:00 LEVOTHYROXINE SODIUM [facility] [place] 2023-04-02 00:00 lenalidomide [facility] [place] 2023-04-02 00:00 lenalidomide [facility] [place] 2023-04-04 00:00 lenalidomide [facility] [place] 2023-04-04 00:00 lenalidomide [facility] [place] 2023-04-04 00:00 lenalidomide [facility] [place] 2023-04-28 00:00 lenalidomide [facility] [place] 2023-04-28 00:00 lenalidomide [facility] [place] 2023-04-29 00:00 lenalidomide [facility] [place] 2023-04-29 00:00 lenalidomide [facility] [place] 2023-04-30 00:00 lenalidomide [facility] [place] 2023-04-02 00:00 atorvastatin [facility] [place] 2023-04-02 00:00 atorvastatin [facility] [place] 2023-04-04 00:00 atorvastatin [facility] [place] 2023-04-04 00:00 atorvastatin [facility] [place] 2023-04-04 00:00 atorvastatin [facility] [place] 2023-04-28 00:00 atorvastatin [facility] [place] 2023-04-28 00:00 atorvastatin [facility] [place] 2023-04-29 00:00 atorvastatin [facility] [place] 2023-04-29 00:00 atorvastatin [facility] [place] 2023-04-30 00:00 atorvastatin [facility] [place] 2023-04-02 00:00 atorvastatin [facility] [place] 2023-04-02 00:00 atorvastatin [facility] [place] 2023-04-04 00:00 atorvastatin [facility] [place] 2023-04-04 00:00 atorvastatin [facility] [place] 2023-04-04 00:00 atorvastatin [facility] [place] 2023-04-28 00:00 atorvastatin [facility] [place] 2023-04-28 00:00 atorvastatin [facility] [place] 2023-04-29 00:00 atorvastatin [facility] [place] 2023-04-29 00:00 atorvastatin [facility] [place] 2023-04-30 00:00 atorvastatin [facility] [place] 2023-04-02 00:00 RANITIDINE HCL [facility] [place] 2023-04-02 00:00 RANITIDINE HCL [facility] [place] 2023-04-04 00:00 RANITIDINE HCL [facility] [place] 2023-04-04 00:00 RANITIDINE HCL [facility] [place] 2023-04-04 00:00 RANITIDINE HCL [facility] [place] 2023-04-28 00:00 RANITIDINE HCL [facility] [place] 2023-04-28 00:00 RANITIDINE HCL [facility] [place] 2023-04-29 00:00 RANITIDINE HCL [facility] [place] 2023-04-29 00:00 RANITIDINE HCL [facility] [place] 2023-04-30 00:00 RANITIDINE HCL [facility] [place] 2023-04-02 00:00 ASPIRIN [facility] [place] 2023-04-02 00:00 ASPIRIN [facility] [place] 2023-04-04 00:00 ASPIRIN [facility] [place] 2023-04-04 00:00 ASPIRIN [facility] [place] 2023-04-04 00:00 ASPIRIN [facility] [place] 2023-04-28 00:00 ASPIRIN [facility] [place] 2023-04-28 00:00 ASPIRIN [facility] [place] 2023-04-29 00:00 ASPIRIN [facility] [place] 2023-04-29 00:00 ASPIRIN [facility] [place] 2023-04-30 00:00 ASPIRIN [facility] [place] 2023-04-02 00:00 aspirin [facility] [place] 2023-04-02 00:00 aspirin [facility] [place] 2023-04-04 00:00 aspirin [facility] [place] 2023-04-04 00:00 aspirin [facility] [place] 2023-04-04 00:00 aspirin [facility] [place] 2023-04-28 00:00 aspirin [facility] [place] 2023-04-28 00:00 aspirin [facility] [place] 2023-04-29 00:00 aspirin [facility] [place] 2023-04-29 00:00 aspirin [facility] [place] 2023-04-30 00:00 aspirin [facility] [place] 2023-04-02 00:00 BUACNZXGNN-NMM-XRWG-CODEINE [facility] [place] 2023-04-02 00:00 LUVNRIRUVH-ELF-PNGF-CODEINE [facility] [place] 2023-04-04 00:00 HLWXANRKOM-XTF-QOFU-CODEINE [facility] [place] 2023-04-04 00:00 IZJZGVOEUL-YPB-BLRV-CODEINE [facility] [place] 2023-04-04 00:00 BOOEWWAALB-EJI-SZWY-CODEINE [facility] [place] 2023-04-28 00:00 SRBIPYVQGG-ZGJ-BLGX-CODEINE [facility] [place] 2023-04-28 00:00 QNGYSRHMYU-YFT-POJY-CODEINE [facility] [place] 2023-04-29 00:00 QJETBKFFEQ-SLF-IVLT-CODEINE [facility] [place] 2023-04-29 00:00 MRCDWEYKAS-VBJ-BKEG-CODEINE [facility] [place] 2023-04-30 00:00 LEVMPTFQVB-LXK-TWNA-CODEINE [facility] [place] 2023-04-02 00:00 losartan [facility] [place] 2023-04-02 00:00 losartan [facility] [place] 2023-04-04 00:00 losartan [facility] [place] 2023-04-04 00:00 losartan [facility] [place] 2023-04-04 00:00 losartan [facility] [place] 2023-04-28 00:00 losartan [facility] [place] 2023-04-28 00:00 losartan [facility] [place] 2023-04-29 00:00 losartan [facility] [place] 2023-04-29 00:00 losartan [facility] [place] 2023-04-30 00:00 losartan [facility] [place] 2023-04-02 00:00 metoprolol succinate [facility] [place] 2023-04-02 00:00 metoprolol succinate [facility] [place] 2023-04-04 00:00 metoprolol succinate [facility] [place] 2023-04-04 00:00 metoprolol succinate [facility] [place] 2023-04-04 00:00 metoprolol succinate [facility] [place] 2023-04-28 00:00 metoprolol succinate [facility] [place] 2023-04-28 00:00 metoprolol succinate [facility] [place] 2023-04-29 00:00 metoprolol succinate Walk[facility]In [facility] [place] 2023-04-29 00:00 metoprolol succinate Walk[facility] [place] 2023-04-30 00:00 metoprolol succinate [facility] [place] 2023-04-02 00:00 warfarin [facility] [place] 2023-04-02 00:00 warfarin [facility] [place] 2023-04-04 00:00 warfarin [facility] [place] 2023-04-04 00:00 warfarin [facility] [place] 2023-04-04 00:00 warfarin [facility] [place] 2023-04-28 00:00 warfarin [facility] [place] 2023-04-28 00:00 warfarin [facility] [place] 2023-04-29 00:00 warfarin [facility] [place] 2023-04-29 00:00 warfarin [facility] [place] 2023-04-30 00:00 warfarin [facility] [place] 2023-04-02 00:00 NVJTXYZGAL-JMX-MOTJ-CODEINE [facility] [place] 2023-04-02 00:00 ICZJLVQVWM-MPA-UFDY-CODEINE [facility] [place] 2023-04-04 00:00 EUIRMILJEA-CHT-RQUB-CODEINE [facility] [place] 2023-04-04 00:00 MXTWQFYWRT-RXA-KZEY-CODEINE [facility] [place] 2023-04-04 00:00 OYEACALGFI-WZH-ZWFI-CODEINE [facility] [place] 2023-04-28 00:00 FKBIAXXNCM-OEB-GPAI-CODEINE [facility] [place] 2023-04-28 00:00 UCCHQVFKXP-IEK-YSGZ-CODEINE [facility] [place] 2023-04-29 00:00 KFSUJOFUPI-CWF-GNUN-CODEINE [facility] [place] 2023-04-29 00:00 TEAIKBWMPN-IQN-YTDJ-CODEINE [facility] [place] 2023-04-30 00:00 OPQTHWPJRN-ZFA-BVLG-CODEINE [facility] [place] 2023-04-02 00:00 warfarin [facility] [place] 2023-04-02 00:00 warfarin [facility] [place] 2023-04-04 00:00 warfarin [facility] [place] 2023-04-04 00:00 warfarin [facility] [place] 2023-04-04 00:00 warfarin [facility] [place] 2023-04-28 00:00 warfarin [facility] [place] 2023-04-28 00:00 warfarin [facility] [place] 2023-04-29 00:00 warfarin [facility] [place] 2023-04-29 00:00 warfarin [facility] [place] 2023-04-30 00:00 warfarin [facility] [place] 2023-04-02 00:00 propranolol [facility] [place] 2023-04-02 00:00 propranolol [facility] [place] 2023-04-04 00:00 [facility]pranolol [facility] [place] 2023-04-04 00:00 propranolol [facility] [place] 2023-04-04 00:00 propranolol [facility] [place] 2023-04-28 00:00 propranolol [facility] [place] 2023-04-28 00:00 propranolol [facility] [place] 2023-04-29 00:00 propranolol [facility] [place] 2023-04-29 00:00 propranolol [facility] [place] 2023-04-30 00:00 propranolol [facility] [place] 2023-04-02 00:00 metoprolol succinate [facility] [place] 2023-04-02 00:00 metoprolol succinate [facility] [place] 2023-04-04 00:00 metoprolol succinate [facility] [place] 2023-04-04 00:00 metoprolol succinate [facility] [place] 2023-04-04 00:00 metoprolol succinate [facility] [place] 2023-04-28 00:00 metoprolol succinate [facility] [place] 2023-04-28 00:00 metoprolol succinate [facility] [place] 2023-04-29 00:00 metoprolol succinate [facility] [place] 2023-04-29 00:00 metoprolol succinate [facility] [place] 2023-04-30 00:00 metoprolol succinate [facility] [place] 2023-04-02 00:00 levothyroxine [facility] [place] 2023-04-02 00:00 levothyroxine [facility] [place] 2023-04-04 00:00 levothyroxine [facility] [place] 2023-04-04 00:00 levothyroxine [facility] [place] 2023-04-04 00:00 levothyroxine [facility] [place] 2023-04-28 00:00 levothyroxine [facility] [place] 2023-04-28 00:00 levothyroxine [facility] [place] 2023-04-29 00:00 levothyroxine [facility] [place] 2023-04-29 00:00 levothyroxine [facility] [place] 2023-04-30 00:00 levothyroxine [facility] [place] 2023-04-02 00:00 mupirocin [facility] [place] 2023-04-02 00:00 mupirocin [facility] [place] 2023-04-04 00:00 mupirocin [facility] [place] 2023-04-04 00:00 mupirocin [facility] [place] 2023-04-04 00:00 mupirocin [facility] [place] 2023-04-28 00:00 mupirocin [facility] [place] 2023-04-28 00:00 mupirocin [facility] [place] 2023-04-29 00:00 mupirocin [facility] [place] 2023-04-29 00:00 mupirocin [facility] [place] 2023-04-30 00:00 mupirocin [facility] [place] 2023-04-02 00:00 LEVOTHYROXINE SODIUM [facility] [place] 2023-04-02 00:00 LEVOTHYROXINE SODIUM [facility] [place] 2023-04-04 00:00 LEVOTHYROXINE SODIUM [facility] [place] 2023-04-04 00:00 LEVOTHYROXINE SODIUM [facility] [place] 2023-04-04 00:00 LEVOTHYROXINE SODIUM [facility] [place] 2023-04-28 00:00 LEVOTHYROXINE SODIUM [facility] [place] 2023-04-28 00:00 LEVOTHYROXINE SODIUM [facility] [place] 2023-04-29 00:00 LEVOTHYROXINE SODIUM [facility] [place] 2023-04-29 00:00 LEVOTHYROXINE SODIUM [facility] [place] 2023-04-30 00:00 LEVOTHYROXINE SODIUM [facility] [place] 2023-04-02 00:00 losartan [facility] [place] 2023-04-02 00:00 losartan [facility] [place] 2023-04-04 00:00 losartan [facility] [place] 2023-04-04 00:00 losartan [facility] [place] 2023-04-04 00:00 losartan [facility] [place] 2023-04-28 00:00 losartan [facility] [place] 2023-04-28 00:00 losartan [facility] [place] 2023-04-29 00:00 losartan [facility] [place] 2023-04-29 00:00 losartan [facility] [place] 2023-04-30 00:00 losartan [facility] [place] 2023-04-02 00:00 lenalidomide [facility] [place] 2023-04-02 00:00 lenalidomide [facility] [place] 2023-04-04 00:00 lenalidomide [facility] [place] 2023-04-04 00:00 lenalidomide [facility] [place] 2023-04-04 00:00 lenalidomide [facility] [place] 2023-04-28 00:00 lenalidomide [facility] [place] 2023-04-28 00:00 lenalidomide [facility] [place] 2023-04-29 00:00 lenalidomide [facility] [place] 2023-04-29 00:00 lenalidomide [facility] [place] 2023-04-30 00:00 lenalidomide [facility] [place] 2023-04-02 00:00 lenalidomide [facility] [place] 2023-04-02 00:00 lenalidomide [facility] [place] 2023-04-04 00:00 lenalidomide [facility] [place] 2023-04-04 00:00 lenalidomide [facility] [place] 2023-04-04 00:00 lenalidomide [facility] [place] 2023-04-28 00:00 lenalidomide [facility] [place] 2023-04-28 00:00 lenalidomide [facility] [place] 2023-04-29 00:00 lenalidomide [facility] [place] 2023-04-29 00:00 lenalidomide [facility] [place] 2023-04-30 00:00 lenalidomide [facility] [place] Problems date description facility 2023-04-02 00:00 Unspecified hypothyroidism [facility] [place] 2023-04-02 00:00 Unspecified hypothyroidism [facility] [place] 2023-04-02 00:00 Migraine, unspecifie d, without mention of intractable migraine, without mention of status migrainosus [facility] [place] 2023-04-02 00:00 Migraine, unspecifie d, without mention of intractable migraine, without mention of status migrainosus [facility] [place] 2023-04-02 00:00 Migraine [facility] [place] 2023-04-02 00:00 Migraine [facility] [place] 2023-04-02 00:00 Hypothyroidism [facility] [place] 2023-04-02 00:00 Hypothyroidism [facility] [place] 2023-04-02 00:00 Diverticulosis of sigmoid colon [facility] [place] 2023-04-02 00:00 Diverticulosis of sigmoid colon [facility] [place] 2023-04-02 00:00 Diverticulosis of co srinivasan (without mention of hemorrhage) [facility] [place] 2023-04-02 00:00 Diverticulosis of co srinivasan (without mention of hemorrhage) [facility] [place] 2023-04-02 00:00 Urgent desire to urinate [facility] [place] 2023-04-02 00:00 Urgent desire to urinate [facility] [place] 2023-04-02 00:00 Urgent desire to urinate [facility] [place] 2023-04-02 00:00 Urgent desire to urinate [facility] [place] 2023-04-02 00:00 Urgent desire to urinate [facility] [place] 2023-04-02 00:00 Urgent desire to urinate [facility] [place] 2023-04-02 00:00 Urgent desire to urinate [facility] [place] 2023-04-02 00:00 Urgent desire to urinate [facility] [place] 2023-04-02 00:00 Urgent desire to urinate [facility] [place] 2023-04-02 00:00 Hypothyroidism, unspecified [facility] [place] 2023-04-02 00:00 Hypothyroidism, unspecified [facility] [place] 2023-04-02 00:00 Migraine, unspecifie d, not intractable, without status migrainosus [facility] [place] 2023-04-02 00:00 Migraine, unspecifie d, not intractable, without status migrainosus [facility] [place] 2023-04-02 00:00 Diverticulosis of la rge intestine without perforation or abscess without bleeding [facility] [place] 2023-04-02 00:00 Diverticulosis of la rge intestine without perforation or abscess without bleeding [facility] [place] 2023-04-02 00:00 Urgency of urination [facility] [place] 2023-04-02 00:00 Urgency of urination [facility] [place] 2023-04-02 00:00 Urgency of urination [facility] [place] 2023-04-02 00:00 Urgency of urination [facility] [place] 2023-04-02 00:00 Urgency of urination [facility] [place] 2023-04-02 00:00 Urgency of urination [facility] [place] 2023-04-02 00:00 Urgency of urination [facility] [place] 2023-04-02 00:00 Urgency of urination [facility] [place] 2023-04-02 00:00 Urgency of urination [facility] [place] 2023-04-04 00:00 Unspecified hypothyroidism [facility] [place] 2023-04-04 00:00 Unspecified hypothyroidism [facility] [place] 2023-04-04 00:00 Unspecified hypothyroidism [facility] [place] 2023-04-04 00:00 Migraine, unspecifie d, without mention of intractable migraine, without mention of status migrainosus [facility] [place] 2023-04-04 00:00 Migraine, unspecifie d, without mention of intractable migraine, without mention of status migrainosus [facility] [place] 2023-04-04 00:00 Migraine, unspecifie d, without mention of intractable migraine, without mention of status migrainosus [facility] [place] 2023-04-04 00:00 Migraine [facility] [place] 2023-04-04 00:00 Migraine [facility] [place] 2023-04-04 00:00 Migraine [facility] [place] 2023-04-04 00:00 Hypothyroidism [facility] [place] 2023-04-04 00:00 Hypothyroidism [facility] [place] 2023-04-04 00:00 Hypothyroidism [facility] [place] 2023-04-04 00:00 Diverticulosis of sigmoid colon [facility] [place] 2023-04-04 00:00 Diverticulosis of sigmoid colon [facility] [place] 2023-04-04 00:00 Diverticulosis of sigmoid colon [facility] [place] 2023-04-04 00:00 Diverticulosis of co srinivasan (without mention of hemorrhage) [facility] [place] 2023-04-04 00:00 Diverticulosis of co srinivasan (without mention of hemorrhage) [facility] [place] 2023-04-04 00:00 Diverticulosis of co srinivasan (without mention of hemorrhage) [facility] [place] 2023-04-04 00:00 Hypothyroidism[facility] unspecified [facility] [place] 2023-04-04 00:00 Hypothyroidism, unspecified [facility] [place] 2023-04-04 00:00 Hypothyroidism, unspecified [facility] [place] 2023-04-04 00:00 Migraine, unspecifie d, not intractable, without status migrainosus [facility] [place] 2023-04-04 00:00 Migraine, unspecifie d, not intractable, without status migrainosus [facility] [place] 2023-04-04 00:00 Migraine, unspecifie d, not intractable, without status migrainosus [facility] [place] 2023-04-04 00:00 Diverticulosis of la rge intestine without perforation or abscess without bleeding [facility] [place] 2023-04-04 00:00 Diverticulosis of la rge intestine without perforation or abscess without bleeding [facility] [place] 2023-04-04 00:00 Diverticulosis of la rge intestine without perforation or abscess without bleeding [facility] [place] 2023-04-28 00:00 Unspecified hypothyroidism [facility] [place] 2023-04-28 00:00 Unspecified hypothyroidism [facility] [place] 2023-04-28 00:00 Migraine, unspecifie d, without mention of intractable migraine, without mention of status migrainosus [facility] [place] 2023-04-28 00:00 Migraine, unspecifie d, without mention of intractable migraine, without mention of status migrainosus [facility] [place] 2023-04-28 00:00 Migraine [facility] [place] 2023-04-28 00:00 Migraine [facility] [place] 2023-04-28 00:00 Hypothyroidism [facility] [place] 2023-04-28 00:00 Hypothyroidism [facility] [place] 2023-04-28 00:00 Diverticulosis of sigmoid colon [facility] [place] 2023-04-28 00:00 Diverticulosis of sigmoid colon [facility] [place] 2023-04-28 00:00 Diverticulosis of co srinivasan (without mention of hemorrhage) [facility] [place] 2023-04-28 00:00 Diverticulosis of co srinivasan (without mention of hemorrhage) [facility] [place] 2023-04-28 00:00 Hypothyroidism, unspecified [facility] [place] 2023-04-28 00:00 Hypothyroidism, unspecified [facility] [place] 2023-04-28 00:00 Migraine, unspecifie d, not intractable, without status migrainosus [facility] [place] 2023-04-28 00:00 Migraine, unspecifie d, not intractable, without status migrainosus [facility] [place] 2023-04-28 00:00 Diverticulosis of la rge intestine without perforation or abscess without bleeding [facility] [place] 2023-04-28 00:00 Diverticulosis of la rge intestine without perforation or abscess without bleeding [facility] [place] 2023-04-29 00:00 Unspecified hypothyroidism [facility] [place] 2023-04-29 00:00 Unspecified hypothyroidism [facility] [place] 2023-04-29 00:00 Migraine, unspecifie d, without mention of intractable migraine, without mention of status migrainosus [facility] [place] 2023-04-29 00:00 Migraine, unspecifie d, without mention of intractable migraine, without mention of status migrainosus [facility] [place] 2023-04-29 00:00 Migraine [facility] [place] 2023-04-29 00:00 Migraine [facility] [place] 2023-04-29 00:00 Hypothyroidism [facility] [place] 2023-04-29 00:00 Hypothyroidism [facility] [place] 2023-04-29 00:00 Diverticulosis of sigmoid colon [facility] [place] 2023-04-29 00:00 Diverticulosis of sigmoid colon [facility] [place] 2023-04-29 00:00 Diverticulosis of co srinivasan (without mention of hemorrhage) [facility] [place] 2023-04-29 00:00 Diverticulosis of co srinivasan (without mention of hemorrhage) [facility] [place] 2023-04-29 00:00 Hypothyroidism, unspecified [facility] [place] 2023-04-29 00:00 Hypothyroidism, unspecified [facility] [place] 2023-04-29 00:00 Migraine, unspecifie d, not intractable, without status migrainosus [facility] [place] 2023-04-29 00:00 Migraine, unspecifie d, not intractable, without status migrainosus [facility] [place] 2023-04-29 00:00 Diverticulosis of la rge intestine without perforation or abscess without bleeding [facility] [place] 2023-04-29 00:00 Diverticulosis of la rge intestine without perforation or abscess without bleeding [facility] [place] 2023-04-30 00:00 Unspecified hypothyroidism [facility] [place] 2023-04-30 00:00 Migraine, unspecifie d, without mention of intractable migraine, without mention of status migrainosus [facility] [place] 2023-04-30 00:00 Migraine [facility] [place] 2023-04-30 00:00 Hypothyroidism [facility] [place] 2023-04-30 00:00 Diverticulosis of sigmoid colon [facility] [place] 2023-04-30 00:00 Diverticulosis of co srinivasan (without mention of hemorrhage) [facility] [place] 2023-04-30 00:00 Hypothyroidism, unspecified [facility] [place] 2023-04-30 00:00 Migraine, unspecifie d, not intractable, without status migrainosus [facility] [place] 2023-04-30 00:00 Diverticulosis of la rge intestine without perforation or abscess without bleeding [facility] [place] Procedures date description facility 2023-04-02 00:00 Visit Code Hold [facility] [place] 2023-04-02 00:00 Visit Code Hold [facility] [place] 2023-04-02 00:00 Visit Code Hold [facility] [place] 2023-04-02 00:00 Visit Code Hold [facility] [place] 2023-04-02 00:00 Visit Code Hold [facility] [place] 2023-04-02 00:00 Visit Code Hold [facility] [place] 2023-04-02 00:00 Visit Code Hold [facility] [place] 2023-04-02 00:00 Visit Code Hold [facility] [place] 2023-04-02 00:00 Visit Code Hold [facility] [place] 2023-04-28 00:00 Visit Code Hold [facility] [place] 2023-04-28 00:00 Visit Code Hold [facility] [place] 2023-04-28 00:00 Visit Code Hold [facility] [place] 2023-04-28 00:00 Visit Code Hold [facility] [place] 2023-04-02 00:00 POC URINALYSIS DIP [facility] [place] 2023-04-02 00:00 POC URINALYSIS DIP [facility] [place] 2023-04-02 00:00 POC URINALYSIS DIP [facility] [place] 2023-04-02 00:00 POC URINALYSIS DIP [facility] [place] 2023-04-02 00:00 POC URINALYSIS DIP [facility] [place] 2023-04-02 00:00 POC URINALYSIS DIP [facility] [place] 2023-04-02 00:00 POC URINALYSIS DIP [facility] [place] 2023-04-02 00:00 POC URINALYSIS DIP [facility] [place] 2023-04-02 00:00 POC URINALYSIS DIP [facility] [place] 2023-04-28 00:00 POC URINALYSIS DIP [facility] [place] 2023-04-28 00:00 POC URINALYSIS DIP [facility] [place] 2023-04-28 00:00 POC URINALYSIS DIP [facility] [place] 2023-04-28 00:00 POC URINALYSIS DIP [facility] [place] Results/Labs test date facility value unit notes Social History date description facility 2023-04-02 00:00 Never smoker [facility] [place] 2023-04-02 00:00 Never smoker [facility] [place] 2023-04-02 00:00 Never smoker [facility] [place] 2023-04-02 00:00 Never smoker [facility] [place] 2023-04-02 00:00 Never smoker [facility] [place] 2023-04-02 00:00 Never smoker [facility] [place] 2023-04-02 00:00 Never smoker [facility] [place] 2023-04-02 00:00 Never smoker [facility] [place] 2023-04-02 00:00 Never smoker [facility] [place] 2023-04-28 00:00 Never smoker [facility] [place] 2023-04-28 00:00 Never smoker [facility] [place] 2023-04-28 00:00 Never smoker [facility] [place] 2023-04-28 00:00 Never smoker [facility] [place] Vital Signs date measurement value units 2023-04-02 00:00 BP_diastolic 77 mmHg 2023-04-02 00:00 BP_systolic 136 mmHg 2023-04-02 00:00 heart_rate 52 /min 2023-04-02 00:00 height_metric 164.47 cm 2023-04-02 00:00 height_standard 64.75 in 2023-04-02 00:00 respiration_rate 16 /min 2023-04-02 00:00 temperature_metric 36.39 C 2023-04-02 00:00 temperature_standard 97.5 F 2023-04-28 00:00 BMI 26.93 kg/m2 2023-04-28 00:00 BP_diastolic 71 mmHg 2023-04-28 00:00 BP_systolic 138 mmHg 2023-04-28 00:00 heart_rate 62 /min 2023-04-28 00:00 height_metric 164.47 cm 2023-04-28 00:00 height_standard 64.75 in 2023-04-28 00:00 respiration_rate 16 /min 2023-04-28 00:00 temperature_metric 35.78 C 2023-04-28 00:00 temperature_standard 96.4 F 2023-04-28 00:00 weight_metric 72.57 kg 2023-04-28 00:00 weight_standard 160 lb
[2023-05-01 22:59] LABS: CLARITY,URINE CLOUDY (CLEAR)
[2023-05-01 23:01] LABS: BACTERIA,URINE Moderate /HPF (None Seen); RBC,URINE TNTC /HPF (0-5); SQUAMOUS EPITHELIAL CELL,UR FEW Squamous (<= Few); WBC,URINE >25 /HPF (0-5)
[2023-05-01] MEDS ORDERED: CEPHALEXIN 250 MG Prepack 8 CAP BOTTLE PO STA (23:36)
[2023-05-01] MEDS ORDERED: cephALEXin 250 MG CAPSULE PO STA (23:36)
--- NOTE | 2023-05-01 23:49 | ED Physician Documentation ---
History of Present Illness - Stated complaint Stated Complaint: FEMALE - Chief complaint Chief Complaint: Abd Pain - Additonal information Additional information: antibiotics. Patient 78-year-old female presenting to the emergency department with dysuria. Symptoms ongoing x1 week. No fever, flank pain, nausea, vomiting, chills or rigors. Was seen at urgent care few days ago, urine culture at that time was positive for E. coli. She reports that she was not started on any antibiotics at that time but was started on Pyridium. 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 : None HEENT: None Psych: None Musculoskeletal: None Derm: Other - Past Surgical History Past Surgical History: Yes Ortho: ACL reconstruction - Present Medications Home Medications: Ambulatory Orders Medication Instructions Recorded Confirmed Warfarin [Coumadin] 5 mg PO 1400 04/12/13 05/01/23 Atorvastatin Calcium 40 mg PO DAILY 05/01/23 05/01/23 Lenalidomide 5 mg PO DAILY 05/01/23 05/01/23 Levothyroxine [Synthroid] 100 mcg PO QDAC 05/01/23 05/01/23 Losartan Potassium 100 mg PO DAILY 05/01/23 05/01/23 Metoprolol Succinate [Toprol Xl] 25 mg PO DAILY 05/01/23 05/01/23 Propranolol [Inderal] 20 mg PO BID 05/01/23 05/01/23 amLODIPine [Norvasc] 2.5 mg PO DAILY 05/01/23 05/01/23 cephALEXin [Keflex] 500 mg PO Q6H #28 cap 05/01/23 - Allergies Allergies/Adverse Reactions: Allergies Allergy/AdvReac Type Severity Reaction Status Date / Time No Known Drug Allergies Allergy Verified 05/01/23 22:43 - Social History Does the pt smoke?: No Smoking Status: Never smoker Does the pt drink ETOH?: No Does the pt have substance abuse?: No - Immunizations Immunizations are current?: Yes - POLST Patient has POLST: No PD ED PE NORMAL - Vitals Vital signs reviewed: Yes - General General: Alert and oriented X 3 - HEENT HEENT: Atraumatic - Neck Neck: Supple, no meningeal sign - Cardiac Cardiac: RRR - Respiratory Respiratory: No respiratory distress - Abdomen Abdomen: Normal bowel sounds, Non tender Results - Vitals Vitals: Vital Signs - 24 hr 05/01/23 22:36 Temperature 35.9 C L Heart Rate 70 Respiratory 16 Rate Blood Pressure 134/68 H O2 Saturation 95 Oxygen O2 Source Room air - Labs Labs: Laboratory Tests 05/01/23 22:46 Urine Color DK. ORANGE Urine Clarity CLOUDY Urine pH Ur Specific Whitman Urine Protein Urine Glucose (UA) Urine Ketones Urine Occult Blood Urine Nitrite Urine Bilirubin Urine Urobilinogen Ur Leukocyte Esterase Urine RBC TNTC H Urine WBC >25 H Ur Squamous Epith Cells FEW Squamous Urine Bacteria Moderate H Ur Microscopic Review INDICATED Urine Culture Comments INDICATED PD Medical Decision Making - ED course Complexity details: reviewed results, d/w patient ED course: Patient 78-year-old female with history of frequent UTIs presenting to the emergency department with dysuria and frequency. No clinical indications pyelonephritis or sepsis. Abdominal exam benign. Urine analysis with clear indications of infection. Urine culture from the is reviewed, positive for E. coli susceptible to cephalosporins. Will discharge on course of Keflex. Encourage follow-up with primary care. Clear return precautions given. Departure - Departure Disposition: 01 Home, Self Care Clinical Impression: UTI (urinary tract infection) Qualifiers: Urinary tract infection type: acute cystitis Hematuria presence: with hematuria Qualified Code(s): N30.01 - Acute cystitis with hematuria Instructions: ANTIBIOTIC, Other Prescriptions: cephALEXin [Keflex] 500 mg PO Q6H #28 cap Forms: PCP List
== END 2023-05-02 00:06 | disposition home or self-care (01) ==
LOC: ED 22:28
DX: N30.01 Acute cystitis with hematuria (principal); B96.20 Unspecified Escherichia coli [E. coli] as the cause of diseases classified elsewhere; I48.91 Unspecified atrial fibrillation; E03.9 Hypothyroidism, unspecified; F03.90 Unspecified dementia, unspecified severity, without behavioral disturbance, psychotic disturbance, mood disturbance, and anxiety; Z79.01 Long term (current) use of anticoagulants; Z79.899 Other long term (current) drug therapy
CPT/HCPCS: 81001; 87086; 87181; 99283; A9270; 81003

== ENCOUNTER 2023-05-14 08:00 | Outpatient (CLI) | payer MEDICARE, OTHER ==
[2023-05-14 18:21] LABS: BILIRUBIN,URINE NEGATIVE (NEGATIVE); GLUCOSE, URINE (UA) 250 mg/dL (NEGATIVE); KETONES,URINE (UA) NEGATIVE (NEGATIVE); LEUKOCYTE ESTERASE, URINE SMALL (NEGATIVE); NITRITE,URINE NEGATIVE (NEGATIVE); OCCULT BLOOD,URINE TRACE-INTA (NEGATIVE); PROTEIN,URINE NEGATIVE (NEGATIVE); UROBILINOGEN,URINE 0.2 (NORMAL) E.U./dL (NORMAL)
[2023-05-14 18:24] LABS: CLARITY,URINE HAZY (CLEAR)
[2023-05-14 18:37] LABS: BACTERIA,URINE Many /HPF (None Seen); RBC,URINE 0-5 /HPF (0-5); SQUAMOUS EPITHELIAL CELL,UR NONE SEEN (<= Few)
== END 2023-05-14 23:59 | disposition home or self-care (01) ==
LOC: LAB.S 08:00
PROVIDERS: ATTEND Emergency Medicine
DX: R30.0 Dysuria (principal)
CPT/HCPCS: 81001; 87086; 87181

== ENCOUNTER 2023-06-09 07:00 | Outpatient (CLI) | payer MEDICARE, OTHER | END 2023-06-09 23:59 | disposition home or self-care (01) | LOC: LAB.S 07:00 | PROVIDERS: ATTEND Physician Assistant | DX: R30.0 Dysuria (principal); Z51.81 Encounter for therapeutic drug level monitoring; Z79.01 Long term (current) use of anticoagulants | CPT/HCPCS: 36416; 85610; 87086; 87181 ==

== ENCOUNTER 2023-06-09 08:35 | Outpatient (CLI) | payer MEDICARE, OTHER | END 2023-06-09 08:36 | disposition home or self-care (01) | LOC: LAB.S 08:35 | PROVIDERS: ATTEND Family Medicine | DX: Z51.81 Encounter for therapeutic drug level monitoring (principal); Z79.01 Long term (current) use of anticoagulants | CPT/HCPCS: 36416; 85610 ==

== ENCOUNTER 2023-06-24 10:48 | Outpatient (CLI) | payer MEDICARE, OTHER | END 2023-06-24 10:49 | disposition home or self-care (01) | LOC: LAB.S 10:48 | PROVIDERS: ATTEND Family Medicine | DX: Z51.81 Encounter for therapeutic drug level monitoring (principal); Z79.01 Long term (current) use of anticoagulants | CPT/HCPCS: 36416; 85610 ==

== ENCOUNTER 2023-07-12 10:46 | Outpatient (CLI) | payer MEDICARE, OTHER | END 2023-07-12 10:47 | disposition home or self-care (01) | LOC: LAB.S 10:46 | PROVIDERS: ATTEND Family Medicine | DX: Z51.81 Encounter for therapeutic drug level monitoring (principal); Z79.01 Long term (current) use of anticoagulants | CPT/HCPCS: 36416; 85610 ==

== ENCOUNTER 2023-07-18 10:14 | Outpatient (CLI) | payer MEDICARE, OTHER | END 2023-07-18 10:15 | disposition home or self-care (01) | LOC: LAB.S 10:14 | PROVIDERS: ATTEND Family Medicine | DX: Z51.81 Encounter for therapeutic drug level monitoring (principal); Z79.01 Long term (current) use of anticoagulants | CPT/HCPCS: 36416; 85610 ==

== ENCOUNTER 2023-07-26 09:44 | Outpatient (CLI) | payer MEDICARE, OTHER | END 2023-07-26 09:45 | disposition home or self-care (01) | LOC: LAB.S 09:44 | PROVIDERS: ATTEND Family Medicine | DX: Z51.81 Encounter for therapeutic drug level monitoring (principal); Z79.01 Long term (current) use of anticoagulants | CPT/HCPCS: 36416; 85610 ==

== ENCOUNTER 2023-08-03 11:00 | Outpatient (CLI) | payer MEDICARE, OTHER | END 2023-08-03 11:01 | disposition home or self-care (01) | LOC: LAB.S 11:00 | PROVIDERS: ATTEND Family Medicine | DX: Z51.81 Encounter for therapeutic drug level monitoring (principal); Z79.01 Long term (current) use of anticoagulants | CPT/HCPCS: 36416; 85610 ==

== ENCOUNTER 2023-09-01 13:26 | Outpatient (CLI) | payer MEDICARE, OTHER | END 2023-09-01 13:27 | disposition home or self-care (01) | LOC: LAB.S 13:26 | PROVIDERS: ATTEND Family Medicine | DX: Z51.81 Encounter for therapeutic drug level monitoring (principal); Z79.01 Long term (current) use of anticoagulants | CPT/HCPCS: 36416; 85610 ==

== ENCOUNTER 2023-09-29 11:24 | Outpatient (CLI) | payer MEDICARE, OTHER | END 2023-09-29 11:25 | disposition home or self-care (01) | LOC: LAB.S 11:24 | PROVIDERS: ATTEND Family Medicine | DX: Z51.81 Encounter for therapeutic drug level monitoring (principal); Z79.01 Long term (current) use of anticoagulants | CPT/HCPCS: 36416; 85610 ==

== ENCOUNTER 2023-10-20 10:02 | Outpatient (CLI) | payer MEDICARE, OTHER | END 2023-10-20 10:03 | disposition home or self-care (01) | LOC: LAB.S 10:02 | PROVIDERS: ATTEND Family Medicine | DX: Z51.81 Encounter for therapeutic drug level monitoring (principal); Z79.01 Long term (current) use of anticoagulants | CPT/HCPCS: 36416; 85610 ==

== ENCOUNTER 2023-11-17 13:42 | Outpatient (CLI) | payer MEDICARE, OTHER | END 2023-11-17 13:43 | disposition home or self-care (01) | LOC: LAB.S 13:42 | PROVIDERS: ATTEND Family Medicine | DX: Z51.81 Encounter for therapeutic drug level monitoring (principal); Z79.01 Long term (current) use of anticoagulants | CPT/HCPCS: 36416; 85610 ==

== ENCOUNTER 2023-12-15 11:41 | Outpatient (CLI) | payer MEDICARE, OTHER | END 2023-12-15 11:42 | disposition home or self-care (01) | LOC: LAB.S 11:41 | PROVIDERS: ATTEND Family Medicine | DX: Z51.81 Encounter for therapeutic drug level monitoring (principal); Z79.01 Long term (current) use of anticoagulants | CPT/HCPCS: 36416; 85610 ==

== ENCOUNTER 2024-01-19 11:07 | Outpatient (CLI) | payer MEDICARE, OTHER | END 2024-01-19 11:08 | disposition home or self-care (01) | LOC: LAB.S 11:07 | PROVIDERS: ATTEND Family Medicine | DX: Z51.81 Encounter for therapeutic drug level monitoring (principal); Z79.01 Long term (current) use of anticoagulants | CPT/HCPCS: 36416; 85610 ==

== ENCOUNTER 2024-02-16 09:38 | Outpatient (CLI) | payer MEDICARE, OTHER | END 2024-02-16 09:39 | disposition home or self-care (01) | LOC: LAB.S 09:38 | PROVIDERS: ATTEND Family Medicine | DX: Z51.81 Encounter for therapeutic drug level monitoring (principal); Z79.01 Long term (current) use of anticoagulants | CPT/HCPCS: 36416; 85610 ==

== ENCOUNTER 2024-04-06 07:09 | Outpatient (CLI) | payer MEDICARE, OTHER ==
[2024-04-06 16:52] LABS: THYROID STIMULATING HORMONE 2.06 uIU/mL (0.34-5.60)
[2024-04-06 16:55] LABS: FERRITIN 190.5 ng/mL (11.0-306.8)
== END 2024-04-06 07:10 | disposition home or self-care (01) ==
LOC: LAB.S 07:09
PROVIDERS: ATTEND Family Medicine
DX: Z51.81 Encounter for therapeutic drug level monitoring (principal); Z79.01 Long term (current) use of anticoagulants; L65.9 Nonscarring hair loss, unspecified
CPT/HCPCS: 36415; 36416; 82728; 84443; 85610

== ENCOUNTER 2024-12-01 22:57 | Inpatient (IN) ==
[2024-12-01 23:20] LABS: BASOPHILS % (AUTO) 0.4 %; EOSINOPHILS # (AUTO) 0.1 10^3/uL (0.0-0.7); EOSINOPHILS % (AUTO) 1.3 %; HCT - HEMATOCRIT 33.3 % (37.0-47.0); HGB - HEMOGLOBIN 10.2 g/dL (12.0-16.0); LYMPHOCYTES # (AUTO) 0.5 10^3/uL (1.5-3.5); MEAN CORPUSCULAR HEMOGLOBIN 33.1 pg (27.0-31.0); MEAN CORPUSCULAR HGB CONC 30.6 g/dL (32.0-36.0); MEAN CORPUSCULAR VOLUME 108.1 fL (81.0-99.0); MEAN PLATELET VOLUME 9.8 fL (7.9-10.8); MONOCYTES # (AUTO) 0.1 10^3/uL (0.0-1.0); MONOCYTES % (AUTO) 1.8 %; NEUTROPHILS # (AUTO) 6.3 10^3/uL (1.5-6.6); NEUTROPHILS % (AUTO) 88.1 %; PLT - PLATELET COUNT 252 10^3/uL (130-450); RED BLOOD COUNT 3.08 10^6/uL (4.20-5.40); RED CELL DISTRIBUTION WIDTH 17.4 % (12.0-15.0); WHITE BLOOD COUNT 7.1 x10^3/uL (4.8-10.8)
--- OUTSIDE RECORDS SUMMARY | 2024-12-01 23:23 | EXTERNAL MEDICAL SUMMARY RPT | Continuity of Care Document ---
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 [facility] 2024-10-02 09:42 Dysuria [facility] 2024-10-02 09:44 Dysuria [facility] 2024-10-03 00:03 Dysuria [facility] 2024-10-03 09:24 Dysuria [facility] 2024-10-03 10:04 Urinary tract infection, site n ot specified [facility] 2024-10-03 10:10 Acute cystitis with hematuria [facility] 2024-10-03 10:10 Urinary tract infection, site n ot specified [facility] 2024-10-03 13:25 Multiple myeloma not having ach ieved remission [facility] 2024-10-04 00:02 Acute cystitis with hematuria [facility] 2024-10-04 00:02 Urinary tract infection, site n ot specified [facility] 2024-10-04 00:04 Urinary tract infection, site n ot specified [facility] 2024-10-18 14:40 Multiple myeloma not having ach ieved remission [facility] 2024-10-18 15:38 [facility], [facility]-18 15:38 Unspecified injury of head, ini tial encounter [facility] 2024-10-22 11:27 Multiple myeloma not having ach ieved remission [facility] 2024-10-22 11:28 Multiple myeloma not having ach ieved remission [facility] 2024-10-22 11:30 Multiple myeloma not having ach ieved remission [facility] 2024-10-22 11:52 Multiple myeloma not having ach ieved remission [facility] 2024-10-23 00:03 Multiple myeloma not having ach ieved remission [facility] 2024-10-25 12:22 Diarrhea, [facility] 2024-10-25 12:23 Diarrhea, [facility] 2024-10-25 12:23 Weakness [facility] 2024-10-25 12:31 Syncope and collapse [facility] 2024-10-25 15:59 Diarrhea, unspecified [facility] 2024-10-25 15:59 [facility]ache, 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 2024-11-09 12:18 Repeated falls [facility] 2024-11-09 12:18 [facility]ache, 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 2024-11-12 11:49 Unspecified hearing loss, bilat eral [facility] 2024-11-12 11:49 Essential (primary) hypertensio n [facility] 2024-[facility]-12 11:49 Urinary tract infection, site n ot specified [facility] 2024-11-12 11:49 Repeated falls [facility] 2024-11-12 11:49 Encounter for palliative care [facility] 2024-11-12 11:49 Other specified counseling [email or web address] [facility] [employer] 2024-11-12 11:49 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 [facility] 2024-11-26 07:13 Personal history of other venous thrombosis and embolism [facility] 2024-11-26 09:41 Headache, unspecified [facility] 2024-11-30 14:05 Multiple myeloma in relapse [facility] 2024-11-30 14:05 Urinary tract infection, site n ot specified [facility] 2024-11-30 14:05 Postmenopausal bleeding [facility] 2024-11-30 14:05 Repeated falls [facility] 2024-11-30 14:05 [facility]24-[facility]30 14:05 Personal history of other venous thrombosis and embolism [facility] 2024-12-01 23:08 Contusion of unspeci fied part of head, initial encounter [facility] Results/Labs test date facility value unit notes Result panel 1 WHOLE BLOOD INR 2024-09-28 10:34 [facility] 2.1 (m issing) Y WARFARIN Oral Anticoagulant Indication INR range Venous Thrombosis, P.E. 2.0 - 3.0 Mechanical Valve 2.5 - 3.5 Result panel 2 NUCLEATED RED BLOOD CELLS AUTO 2024-10-02 09:57 [facility] 0.0 /100wbc (missing) BASOPHILS # (AUTO) 2024-10-02 09:57 [facility] 0.0 10 3/ul (missing) NRBC ABSOLUTE COUNT (AUTO) 2024-10-02 09:57 [facility] 0.00 x10 3/ul (missing) KAPPA/LAMBDA RATIO SERUM 2024-10-02 09:57 [facility] 0.02 (missing) Performed at: [facility] [id number], [place], [place] [id number] [employer] Instructional Assistant: Marta Verma MD, Phone: [phone] EOSINOPHILS # (AUTO) 2024-10-02 09:57 [facility] 0.1 10 3/ul (missing) MONOCYTES # (AUTO) 2024-10-02 09:57 [facility] 0.3 10 3/ul (missing) [id number] 2024-10-02 09:57 [facility] 0.3 g/dl (missing) BILIRUBIN,TOTAL 2024-10-02 09:57 [facility] 0.5 mg/dl As of February 2023 testing method has changed, this may include reference ranges. LYMPHOCYTES # (AUTO) 2024-10-02 09:57 [facility] 0.6 10 3/ul (missing) ALBUMIN/GLOBULIN RATIO 2024-10-02 09:57 [facility] 0.7 (missing) (missing) A/G RATIO 2024-10-02 09:57 [facility] 0.8 (missing) (missing) [id number] 2024-10-02 09:57 [facility] 0.8 g/dl (missing) BETA GLOBULIN 2024-10-02 09:57 [facility] 0.9 g/dl (missing) CREATININE 2024-10-02 09:57 [facility] 1.0 mg/dl As of February 2023 testing method has changed, this may include reference ranges. M-SPIKE 2024-10-02 09:57 [facility] 1.8 g/dl (missing) CHLORIDE 2024-10-02 09:57 [facility] 104 mmol/l As of February 2023 testing method has changed, this may include reference ranges. MEAN CORPUSCULAR VOLUME 2024-10-02 09:57 [facility] 105.3 fl (missing) ANION GAP 2024-10-02 09:57 [facility] 11.0 (missing) (missing) HGB - HEMOGLOBIN 2024-10-02 09:57 [facility] 11.9 g/dl (missing) RED CELL DISTRIBUTION WIDTH 2024-10-02 09:57 [facility] 13.4 % (missing) SODIUM 2024-10-02 09:57 [facility] 139 mmol/l As of February 2023 testing method has changed, this may include reference ranges. AST ASPARTATE AMINOTRANSFERASE 2024-10-02 09:57 [facility] 15 iu/l As of February 2023 testing method has changed, this may include reference ranges. BUN - BLOOD UREA NITROGEN 2024-10-02 09:57 [facility] 17 mg/dl As of February 2023 testing method has changed, this may include reference ranges. GLUCOSE 2024-10-02 09:57 [facility] 191 mg/dl As of February 2023 testing method has changed, this may include reference ranges. GAMMA GLOBULIN 2024-10-02 09:57 [facility] 2.4 g/dl (missing) IMMUNOGLOBULIN A (IGA) 2024-10-02 09:57 [facility] 2104 mg/dl Results confirmed on dilution. PLT - PLATELET COUNT 2024-10-02 09:57 [facility] 217 10 3/ul (missing) ALT ALANINE AMINOTRANSFERASE 2024-10-02 09:57 [facility] 23 iu/l As of February 2023 testing method has changed, this may include reference ranges. CARBON DIOXIDE - CO2 2024-10-02 09:57 [facility] 24 mmol/l As of February 2023 testing method has changed, this may include reference ranges. ALBUMIN 2024-10-02 09:57 [facility] 3.2 g/dl (missing) ALBUMIN 2024-10-02 09:57 [facility] 3.3 g/dl As of February 2023 testing method has changed, this may include reference ranges. POTASSIUM 2024-10-02 09:57 [facility] 3.5 mmol/l As of February 2023 testing method has changed, this may include reference ranges. RED BLOOD COUNT 2024-10-02 09:57 [facility] 3.59 10 6/ul (missing) NEUTROPHILS # (AUTO) 2024-10-02 09:57 [facility] 3.7 10 3/ul (missing) MEAN CORPUSCULAR HGB CONC 2024-10-02 09:57 [facility] 31.5 g/dl (missing) LAMBDA FREE LT CHAINS SERUM 2024-10-02 09:57 [facility] 314.5 mg/l (missing) MEAN CORPUSCULAR HEMOGLOBIN 2024-10-02 09:57 [facility] 33.1 pg (missing) HCT - HEMATOCRIT 2024-10-02 09:57 [facility] 37.8 % (missing) GLOBULIN TOTAL 2024-10-02 09:57 [facility] 4.3 g/dl (missing) GLOBULIN 2024-10-02 09:57 [facility] 4.5 g/dl (missing) WHITE BLOOD COUNT 2024-10-02 09:57 [facility] 4.7 x10 3/ul (missing) GFR - MDRD 2024-10-02 09:57 [facility] 53 (missing) Social History date description facility
[2024-12-01 23:26] LABS: INR 1.8 (0.8-1.2); PT - PROTHROMBIN TIME 18.7 secs (9.9-12.6)
[2024-12-01 23:32] LABS: MAGNESIUM 1.6 mg/dL (1.7-2.3)
[2024-12-01 23:38] LABS: ALBUMIN 2.9 g/dL (3.2-5.5); ALBUMIN/GLOBULIN RATIO 0.6 (1.0-2.2); ALKALINE PHOSPHATASE 80 IU/L (42-121); ALT ALANINE AMINOTRANSFERASE 23 IU/L (10-60); AST ASPARTATE AMINOTRANSFERASE 15 IU/L (10-42); BILIRUBIN,TOTAL 0.8 mg/dL (0.2-1.0); BUN - BLOOD UREA NITROGEN 16 mg/dL (6-20); CALCIUM 9.2 mg/dL (8.5-10.3); CARBON DIOXIDE - CO2 24 mmol/L (21-32); CHLORIDE 103 mmol/L (101-111); GFR - MDRD 53 (>89); GLUCOSE 182 mg/dL (74-104); POTASSIUM 3.6 mmol/L (3.5-4.5); SODIUM 140 mmol/L (135-145)
[2024-12-01] MEDS: iohexoL-300 100 ML VIAL IVP ONE (23:54)
--- NOTE | 2024-12-02 00:02 | CT Report ---
PROCEDURE: CT Head WO INDICATIONS: fall, struck head, on Eliquis TECHNIQUE: Noncontrast 4.5 mm thick angled axial sections acquired from the foramen magnum to the vertex. For r adiation dose reduction, the following was used: automated exposure control, adjustment of mA and/or kV according to patient size. COMPARISON: 11/19/2024, 10/16/2024 FINDINGS: Image quality: Excellent. CSF spaces: Basal cisterns are patent. No extra-axial fluid collections. Ventricles are normal in size and shape. Brain: No midline shift. No intracranial masses or hemorrhage. Humphrey-white matter interface is norm al. Age-appropriate brain parenchymal volume loss and chronic small vessel ischemic change can be seen. Focal volume loss can be seen along the posterior aspect of the right cerebellar hemisphere, as befor e. Skull and face: Calvarium and visualized facial bones are intact, without suspicious lesions. Sinuses: There is an air-fluid level within the right maxillary sinus. Visualized sinuses and mastoi ds are otherwise relatively clear. IMPRESSION: No intracranial hemorrhage is seen. No significant intracranial abnormality is seen. 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 Air-fluid level seen within the right maxillary sinus. Please correlate with acute sinusitis. Reviewed by: Sinan Preciado MD on 12/01/2024 11:01 PM MINAL Approved by: Sinan Preciado MD on 12/01/2024 11:01 PM MINAL Station ID: [id number]
--- NOTE | 2024-12-02 00:33 | CT Report ---
PROCEDURE: CT Angio Abdomen/Pelvis INDICATIONS: gi bleeding CONTRAST: 100 cc Omnipaque 300 TECHNIQUE: Precontrast imaging was performed. After the administration of intravenous contrast, 2.5 mm thick sec tions acquired from the diaphragm to the symphysis, with delays of 25 and 75 seconds. 10 mm maximum- intensity projection (MIP) reformats were then acquired. For radiation dose reduction, the following was used: automated exposure control, adjustment of mA and/or kV according to patient size. COMPARISON: Correlation is made with CT pelvis, 10/16/2024 FINDINGS: Image quality: Excellent. VESSELS: Aorta: Normal size, with normal enhancement. No periaortic inflammatory change is seen. Mesenteric arteries: Note is made of separate origins of the main splenic artery and the main hepatic artery. Superior and inferior mesenteric arteries appear patent. Right pelvic arteries: Within normal limits. Left pelvic arteries: Within normal limits. CHEST: Lung bases and heart: Unremarkable. ABDOMEN: Liver: No solid mass. Gallbladder and biliary tree: Within normal limits. Spleen: No splenomegaly. Pancreas: No pancreatic ductal dilation. Adrenals: No adrenal nodule. Kidneys and ureters: No hydronephrosis. No renal cystic lesion which requires follow up. No solid mas s. Bowel and peritoneum: Moderate wall thickening can be seen involving the distal colon, beginning at t he level of the splenic flexure and continuing to the rectum. On the arterial phase images, no findings of active extravasation can be seen. No bowel distension. No pathologic free fluid. Diverticulosis can be seen, without kelton findings of active diverticulitis. Lymph nodes: No central or retroperitoneal adenopathy. PELVIS Reproductive organs: No adnexal masses are seen on either side. Bladder: No abnormal wall thickening, accounting for underdistension. Pelvic lymph nodes: No pelvic adenopathy by size criteria. Bones: There is a focal lytic process seen within the left medial iliac bone, measuring 6 cm. There i s an associated pathologic fracture seen. Milder areas of bony lysis can be seen elsewhere. Lumbar postoperative and degenerative changes are seen. Other: No significant ventral or inguinal hernia. IMPRESSION: Generalized distal colonic wall thickening can be seen. Please correlate with potential infectious an d inflammatory causes of colitis. No findings of perforation or abscess can be seen. No site of active extravasation can be seen. There is a stable 6 cm focus of bony lysis within the posterior medial left iliac bone, with an assoc iated pathologic fracture. Additional milder areas of bony lysis can be seen. These findings may repr esent metastatic disease versus multiple myeloma. Please correlate with patient history. Additional findings: Separate origins of the main splenic artery and main hepatic artery Lumbar postoperative and degenerative change Diverticulosis, without findings of active diverticulitis. Reviewed by: Sinan Preciado MD on 12/01/2024 11:31 PM MINAL Approved by: Sinan Preciado MD on 12/01/2024 11:31 PM MINAL Station ID: [id number]
[2024-12-02] MEDS: SODIUM CHLORIDE 0.9% 1,000 ML IV STA (00:49)
--- NOTE | 2024-12-02 01:18 | ED Physician Documentation ---
PD HPI SYNCOPE Stated complaint Stated Complaint: FALL Chief complaint Chief Complaint: Trauma Hd/Nk History obtained from History obtained from: Patient, EMS (EMS reports their initial blood pressure was slightly low at approximately 90 systolic and improved with IV fluids. She was awake and conversant on their arrival.) and Caregiver (pt weaker few days, some red blood with mucous per rectum. had few falls the past few days. today with more blood per rectum and had syncope) History of Present Illness Witnessed: Witnessed (Reportedly the patient had brief loss of consciousness. She believes she remembers lightheaded and weakness and falling and does not think she passed out completely.) Timing - onset: Today Duration: Seconds Preceding symptoms: Light headed and Generalized weakness; No Headache, Chest pain or Palpitations Associated symptoms: Abdominal pain (mild lower cramping for few days.) and None (pt has had red blood with loose stool for few days, increased a lot today per caregivers. ) Contributing factors: Recent med change (recent change from coumadin to eliquis chronic use for h/o DVTs; per pt and family, the coumadin had been hard to regulate so changed. 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; No C spine precautions Meds/Allgy Home Medications Ambulatory Orders Medication Instructions Recorded Confirmed levothyroxine 100 mcg tablet 100 mcg PO QDAC 05/01/23 11/27/24 metoprolol succinate 25 mg 25 mg PO DAILY 05/01/23 11/27/24 tablet,extended release 24 hr pomalidomide 4 mg capsule 4 mg PO QAM 10/03/24 11/27/24 (Pomalyst) acetaminophen 500 mg capsule 500 mg PO ONCE 11/07/24 11/27/24 ascorbic acid (vitamin C) 1,000 mg 1 g PO QDAY 11/07/24 11/27/24 capsule cholecalciferol (vitamin D3) 25 50 mcg PO QDAY 11/07/24 11/27/24 mcg (1,000 unit) capsule cranberry 500 mg capsule 500 mg PO BID 11/07/24 11/27/24 d-mannose 500 mg capsule 1,000 mg (2 x 500 mg) PO BID #60 03/12/25 04/01/25 caps dexamethasone 4 mg tablet 20 mg PO .once per week 11/07/24 11/27/24 loperamide 2 mg capsule 4 mg PO Q6H PRN 11/07/24 11/27/24 (Anti-Diarrheal (loperamide)) losartan 100 mg tablet 50 mg PO DAILY 11/07/24 11/27/24 mecobalamin (vitamin B12) 1,000 2,000 mcg PO QDAY 11/07/24 11/27/24 mcg chewable tablet multivitamin 1 tab PO QAM 11/07/24 11/27/24 oxycodone-acetaminophen 5 mg-325 1 tab PO Q6H PRN pain #30 tabs 11/21/24 11/27/24 mg tablet apixaban 5 mg tablet (Eliquis) 5 mg PO BID 11/27/24 11/27/24 Allergies Allergies Allergy/AdvReac Type Severity Reaction Status Date / Time No Known Drug Allergies Allergy Verified 12/01/24 23:08 PFSH Active Problems All Active Problems (Updated 12/02/24 @ 01:20 by Max Goode MD) Acute colitis (Acute) Episode of syncope (Acute) Anticoagulant long-term use (Acute) Transient hypotension (Acute) Acute lower gastrointestinal bleeding (Acute) Abnormal vaginal bleeding in postmenopausal patient (Acute) Recurrent syncope (Acute) Supratherapeutic INR (Acute) Advance care planning (Acute) Falling (Acute) History of DVT (deep vein thrombosis) (Acute) Hearing loss (Acute) Hypertension (Acute) Recurrent UTI (Acute) Diarrhea (Acute) 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) Transient hypotension (Acute) Multiple myeloma (Acute) Bony pelvic pain (Acute) Contusion of head (Acute) Fall (Acute) Anticoagulant long-term use (Acute) Postural dizziness with near syncope (Acute) Dysuria (Acute) Strain of calf muscle (Acute) Medical History Medical History (Updated 12/02/24 @ 01:20 by Max Goode MD) Multiple myeloma Surgical History Surgical History History of auto stem cell transplant Family History Family History (Updated 11/07/24 @ 16:59 by JUAN MANUEL Aguilar, MSN) Son Mental disorder Social History Social History (Updated 11/19/24 @ 14:27 by Hanh Love RN) Smoking Status: Never smoker Living arrangement: At home Marital Status: Living Condition: With family More Information: Mario 2019 Support Person: Yes Relationship: Level: Assisted Do you feel safe in your home environment?: Yes Suffered physical, verbal, emotional, or financial abuse?: No History of Abuse: No ETOH Use: Liquor Frequency: Daily ETOH Use Details: Gabriela cream in coffee daily POLST Patient has POLST: Yes POLST Status: DNR (Selective treatment) Exam Exam Vital Signs: Vital Signs x48h Temp Pulse Resp BP Pulse Ox O2 Flow Rate 12/02/24 00:53 37.3 C 93 18 156/78 H 94 2 12/01/24 22:58 90 16 102/87 95 Constitutional normal general appearance, no apparent distress and average body habitus HENMT normocephalic, head/scalp traumatic (posterior scalp) (tenderness) and oral mucous membranes normal Neck/C-Spine cervical spine nontender, cervical full ROM noted and supple towel around neck by EMS, not inhibiting ROM by the patient. Chest palpation of chest normal Respiratory breath sounds equal bilaterally and normal respiratory effort Cardiovascular normal heart rate noted, regular rhythm noted and no edema Gastrointestinal abdomen soft to palpation, tender to palpation (mild) and (LLQ), nontender to percussion, nondistended and rectal exam abnormal (heme positive stool) (red color blood with mucous.) Back/Pelvis no thoracic spine tenderness and lumbar spine tenderness noted (some iliac crest pain on ROM from prior pelvic fracture, per pt. ) Neurology no movement abnormality noted, no focal motor deficit noted and no sensory deficits noted hard of hearing is all Psychiatry mental status grossly normal, thought process normal, cooperative and affect normal Skin skin color normal Results Vitals Vitals: Vital Signs - 24 hr 12/01/24 22:58 12/02/24 00:53 Temperature 37.3 C Temperature Source Temporal Artery Scan Tympanic Pulse Rate 90 93 Respiratory Rate 16 18 Blood Pressure 102/87 156/78 H O2 Saturation 95 94 O2 Source Room air Nasal cannula If not protocol: Oxygen Flow, liters/minute 2 Pain Intensity 0 0 Oxygen O2 Source Nasal cannula Labs Labs: Microbiology 12/02/24 01:03 Occult Blood - Final Stool Laboratory Tests 12/01/24 23:14 WBC 7.1 RBC 3.08 L Hgb 10.2 L Hct 33.3 L MCV 108.1 H MCH 33.1 H MCHC 30.6 L RDW 17.4 H Plt Count 252 MPV 9.8 Neut # (Auto) 6.3 Lymph # (Auto) 0.5 L [place] # (Auto) 0.1 Eos # (Auto) 0.1 Baso # (Auto) 0.0 Absolute Nucleated RBC 0.00 Nucleated RBC % 0.0 PT 18.7 H INR 1.8 H Sodium 140 Potassium 3.6 Chloride 103 Carbon Dioxide 24 Anion Gap 13.0 BUN 16 Creatinine 1.0 Estimated GFR (MDRD) 53 L Glucose 182 H Calcium 9.2 Magnesium 1.6 L Total Bilirubin 0.8 AST 15 ALT 23 Alkaline Phosphatase 80 Total Protein 8.0 Albumin 2.9 L Globulin 5.1 H Albumin/Globulin Ratio 0.6 L Lipase < 10 L Blood Type Antibody Screen NEGATIVE Rads (name of study) abd/pelvic CT: Relevant Findings:: Final report received and EMP independent interpretation of test Interpretation: PROCEDURE: CT Angio Abdomen/Pelvis INDICATIONS: gi bleeding CONTRAST: 100 cc Omnipaque 300 TECHNIQUE: Precontrast imaging was performed. After the administration of intravenous contrast, 2.5 mm thick sections acquired from the diaphragm to the symphysis, with delays of 25 and 75 seconds. 10 mm maximum-intensity projection (MIP) reformats were then acquired. For radiation dose reduction, the following was u sed: automated exposure control, adjustment of mA and/or kV according to patient size. COMPARISON: Correlation is made with CT pelvis, 10/16/2024 FINDINGS: Image quality: Excellent. VESSELS: Aorta: Normal size, with normal enhancement. No periaortic inflammatory change is seen. Mesenteric arteries: Note is made of separate origins of the main splenic artery and the main hepatic artery. Superior and inferior mesenteric arteries appear patent. Right pelvic arteries: Within normal limits. Left pelvic arteries: Within normal limits. CHEST: Lung bases and heart: Unremarkable. ABDOMEN: Liver: No solid mass. Gallbladder and biliary tree: Within normal limits. Spleen: No splenomegaly. Pancreas: No pancreatic ductal dilation. Adrenals: No adrenal nodule. Kidneys and ureters: No hydronephrosis. No renal cystic lesion which requires follow up. No solid mass. Bowel and peritoneum: Moderate wall thickening can be seen involving the distal colon, beginning at the level of the splenic flexure and continuing to the rectum. On the arterial phase images, no findings of active extravasation can be seen. No bowel distension. No pathologic free fluid. Diverticulosis can be seen, without kelton findings of active diverticulitis. Lymph nodes: No central or retroperitoneal adenopathy. PELVIS Reproductive organs: No adnexal masses are seen on either side. Bladder: No abnormal wall thickening, accounting for underdistension. Pelvic lymph nodes: No pelvic adenopathy by size criteria. Bones: There is a focal lytic process seen within the left medial iliac bone, measuring 6 cm. There is an associated pathologic fracture seen. Milder areas of bony lysis can be seen elsewhere. Lumbar postoperative and degenerative changes are seen. Other: No significant ventral or inguinal hernia. IMPRESSION: Generalized distal colonic wall thickening can be seen. Please correlate with potential infectious and inflammatory causes of colitis. No findings of perforation or abscess can be seen. No site of active extravasation can be seen. There is a stable 6 cm focus of bony lysis within the posterior medial left iliac bone, with an associated pathologic fracture. Additional milder areas of bony lysis can be seen. These findings may represent metastatic disease versus multiple myeloma. Please correlate with patient history. Additional findings: Separate origins of the main splenic artery and main hepatic artery Lumbar postoperative and degenerative change Diverticulosis, without findings of active diverticulitis. Reviewed by: Sinan Preciado MD on 12/01/2024 11:[address]: Relevant Findings:: Final report received and EMP independent interpretation of test Interpretation: No ICH. PD Medical Decision Making ED course Complexity details: reviewed results (The patient is on Eliquis, recently changed from Coumadin about 10 days ago. Blood count showing baseline anemia with hemoglobin 10.2. Guaiac is obviously positive.), considered differential (Caregivers of the patient reports she was having general weakness last day or 2 with some red blood per rectum. Increased today and she had a fainting episode. Did strike her head. Brief LOC and is awake on EMS arrival. Initial blood pressure 90s systolic and increased with fluids.) and d/w patient Reviewed Lab Results: Abdominal and pelvic CT showing colonic wall thickening consistent with colitis. I think this would represent the cause of the bright red blood per rectum with some mucus to it. Presume infectious and can give some antibiotics for it. Bleeding increased related to blood thinners. She had recently changed from Coumadin to Eliquis because the Coumadin levels were variable and hard to control. I doubt the Eliquis itself is causing the bleeding but certainly make it easier. Given the transient hypotension and syncope in this setting, I would be concerned for ongoing bleeding and feel the patient is safest to be placed in observation for serial hemoglobin levels and watching output. At this point hold the Eliquis (it is not because of heart valves). She had had previous history of DVT so we will need prophylaxis for that with compressive socks etc. Consultation with the nighttime hospitalist is placed. The patient is stable at this point with normal attention. She is awake and conversant. Discharge Plan Discharge Patient Disposition: ED Place in Observation Condition: Stable Clinical Impression: Acute lower gastrointestinal bleeding, Transient hypotension, Anticoagulant long-term use, Episode of syncope, Acute colitis Prescriptions: No Action levothyroxine 100 MCG tablet 100 mcg PO QDAC metoprolol succinate 25 MG tablet extended release 24 hr 25 mg PO DAILY oxycodone-acetaminophen 5-325 mg tablet 1 tab PO Q6H PRN (Reason: pain) Qty: 30 0RF Pomalyst 4 mg capsule 4 mg PO QAM dexamethasone 4 mg tablet 20 mg PO .once per week losartan 100 mg tablet 50 mg PO DAILY multivitamin Tablet 1 tab PO QAM ascorbic acid (vitamin C) 1,000 mg capsule 1 g PO QDAY mecobalamin (vitamin B12) 1,000 mcg tablet,chewable 2,000 mcg PO QDAY acetaminophen 500 mg capsule 500 mg PO ONCE loperamide [Anti-Diarrheal (loperamide)] 2 mg capsule 4 mg PO Q6H PRN cholecalciferol (vitamin D3) 25 mcg (1,000 unit) capsule 50 mcg PO QDAY cranberry 500 mg capsule 500 mg PO BID Rx Instructions: administer with meals d-mannose 500 mg capsule 1,000 mg PO BID Qty: 60 0RF Eliquis 5 mg tablet 5 mg PO BID Print Language: [place] Verde[place] Stand Alone Forms: PCP List
[2024-12-02 01:59] LABS: LIPASE < 10 U/L (11-82)
--- NOTE | 2024-12-02 02:10 | HISTORY & PHYSICAL EXAMINATION ---
Chief Complaint Chief Complaint Chief Complaint: Fall History of Present Illness Admitted From Admitted From:: ER History Obtained From Records Reviewed: Yes History obtained from: Pt, staff, chart Exam Limitations: Virtual exam History of Present Illness HPI Comment/Other: H&P was conducted via video remotely, using [employer]. [place] is in [place] Phys[place] in [place]. COAL SCREENER is at bedside, helping with history, as audio is not working. 79 yo F with PMH of Multiple Myeloma (Relapsed IgA lampda myeloma with Osseous lesions) on therapy, recurrent DVTs on Eliquis, HTN, HLD, Hypothyroidism, GERD, Depression, Weakness, frequent Falls presented to the ER s/p Fall. Pt was on the toilet, she felt weak, then slid to the ground sitting down. No dizziness, no LOC. Pt says that has weakness episodes/falls occasionally. Pt has had 1 week h/o blood mixed in her stool. BMs have been normal, 2x/day, no loose stools, no constipation, no abdo pain, no N/V. Pt thinks blood in stool is caused by change of Coumadin to Eliquis about 1 week ago. Pt has not been eating well recently d/t no appetite. No urinary symptoms. EMS reported low BP upon arrival and they started IVF. In the ER, Hgb 10.2, MCV 108.1, INR 1.8, Glc 182, Mg 1.6 ER Physician did MICHAEL: +FOB EKG: NSR at 95 bpm, +PVCs CTA Abdo/Pelvis: Generalized distal colonic wall thickening can be seen. Please correlate with potential infectious and inflammatory causes of colitis. No findings of perforation or abscess can be seen. No site of active extravasation can be seen. There is a stable 6 cm focus of bony lysis within the posterior medial left iliac bone, with an associated pathologic fracture. Additional milder areas of bony lysis can be seen. These findings may represent metastatic disease versus multiple myeloma. Please correlate with patient history. CT Head: No intracranial hemorrhage is seen. No significant intracranial abnormality is seen. 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 Air-fluid level seen within the right maxillary sinus. Please correlate with acute sinusitis. Pt was given IVF in the ER. Review of Systems Status of ROS: 10 or more systems reviewed and unremarkable except as noted in history and below PFSH Active Problems All Active Problems (Updated 04/06/25 @ 01:20 by Max Goode MD) Acute colitis (Acute) Episode of syncope (Acute) Anticoagulant long-term use (Acute) Transient hypotension (Acute) Acute lower gastrointestinal bleeding (Acute) Abnormal vaginal bleeding in postmenopausal patient (Acute) Recurrent syncope (Acute) Supratherapeutic INR (Acute) Advance care planning (Acute) Falling (Acute) History of DVT (deep vein thrombosis) (Acute) Hearing loss (Acute) Hypertension (Acute) Recurrent UTI (Acute) Diarrhea (Acute) 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) Transient hypotension (Acute) Multiple myeloma (Acute) Bony pelvic pain (Acute) Contusion of head (Acute) Fall (Acute) Anticoagulant long-term use (Acute) Postural dizziness with near syncope (Acute) Dysuria (Acute) Strain of calf muscle (Acute) Medical History Medical History (Updated 12/02/24 @ 01:20 by Max oGode MD) Multiple myeloma Surgical History Surgical History History of auto stem cell transplant Family History Family History (Updated 11/07/24 @ 16:59 by JUAN MANUEL Aguilar, MSN) Son Mental disorder Social History Social History (Updated 11/19/24 @ 14:27 by Hanh Love RN) Smoking Status: Never smoker Living arrangement: At home Marital Status: Living Condition: With family More Information: Mario 2019 Support Person: Yes Relationship: Level: Assisted Do you feel safe in your home environment?: Yes Suffered physical, verbal, emotional, or financial abuse?: No History of Abuse: No ETOH Use: Liquor Frequency: Daily ETOH Use Details: [place] cream in coffee daily POLST Patient has POLST: Yes POLST Status: DNR (Selective treatment) Meds/Allgy Home Medications Ambulatory Orders Medication Instructions Recorded Confirmed levothyroxine 100 mcg tablet 100 mcg PO QDAC 05/01/23 11/27/24 metoprolol succinate 25 mg 25 mg PO DAILY 05/01/23 11/27/24 tablet,extended release 24 hr pomalidomide 4 mg capsule 4 mg PO QAM 10/03/24 11/27/24 (Pomalyst) acetaminophen 500 mg capsule 500 mg PO ONCE 11/07/24 11/27/24 ascorbic acid (vitamin C) 1,000 mg 1 g PO QDAY 11/07/24 11/27/24 capsule cholecalciferol (vitamin D3) 25 50 mcg PO QDAY 11/07/24 11/27/24 mcg (1,000 unit) capsule cranberry 500 mg capsule 500 mg PO BID 11/07/24 11/27/24 d-mannose 500 mg capsule 1,000 mg (2 x 500 mg) PO BID #60 11/07/24 11/27/24 caps dexamethasone 4 mg tablet 20 mg PO .once per week 11/07/24 11/27/24 loperamide 2 mg capsule 4 mg PO Q6H PRN 11/07/24 11/27/24 (Anti-Diarrheal (loperamide)) losartan 100 mg tablet 50 mg PO DAILY 11/07/24 11/27/24 mecobalamin (vitamin B12) 1,000 2,000 mcg PO QDAY 11/07/24 11/27/24 mcg chewable tablet multivitamin 1 tab PO QAM 11/07/24 11/27/24 oxycodone-acetaminophen 5 mg-325 1 tab PO Q6H PRN pain #30 tabs 11/21/24 11/27/24 mg tablet apixaban 5 mg tablet (Eliquis) 5 mg PO BID 11/27/24 11/27/24 Allergies Allergies Allergy/AdvReac Type Severity Reaction Status Date / Time No Known Drug Allergies Allergy Verified 12/01/24 23:08 Exam Exam Vital Signs: Vital Signs x48h Temp Pulse Resp BP Pulse Ox O2 Flow Rate 12/02/24 00:53 37.3 C 93 18 156/78 H 94 2 12/01/24 22:58 90 16 102/87 95 Constitutional normal general appearance and no apparent distress HENMT normocephalic Eyes PERRL and no scleral icterus Respiratory cart stethoscope not working; per ER Provider: CTA B/L Cardiovascular cart stethoscope not working; per ER Provider: RRR, no murmurs Gastrointestinal per ER Provider:abdomen soft to palpation, tender to palpation (mild) and (LLQ), nontender to percussion, nondistended and rectal exam abnormal (heme positive stool) (red color blood with mucous.) Extremities per ER Provider: moves all extrem, Neurology A+Ox3. per ER Provider:hard of hearing, NFD Psychiatry cooperative and affect normal Conclusion/Plan Problem List (1) Acute colitis: Plan Acute Colitis GI Bleeding Anemia, macrocytic, chronic Weakness Fall -Hgb 10.2 (at baseline), MCV 108.1, INR 1.8 -ER Physician did MICHAEL: +FOB -EKG: NSR at 95 bpm, +PVCs -CTA Abdo/Pelvis: Generalized distal colonic wall thickening can be seen. Please correlate with potential infectious and inflammatory causes of colitis. No findings of perforation or abscess can be seen. No site of active extravasation can be seen. There is a stable 6 cm focus of bony lysis within the posterior medial left iliac bone, with an associated pathologic fracture. Additional milder areas of bony lysis can be seen. These findings may represent metastatic disease versus multiple myeloma. Please correlate with patient history. -CT Head: No intracranial hemorrhage is seen. No significant intracranial abnormality is seen. 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 Air-fluid level seen within the right maxillary sinus. Please correlate with acute sinusitis. -Pt was given IVF in the ER. -admit to Med Surg -continue IVF -clear liquid diet -H/H q6h -Protonix 40 mg IV daily -pt on opioids, which could be masking diarrhea -CDiff and GI profile ordered -will hold off on any tx for Colitis for now, as etiology unclear -Multiple Myeloma has higher risk of Colitis, so could be r/t MM -PT/OT eval Multiple Myeloma (Relapsed IgA lampda myeloma with Osseous lesions) on therapy -continue home medications: Pomalidomide, Dexamethasone -continue outpt Heme/Onc and Palliative Care F/U Recurrent DVTs on Eliquis -hold home medications: Eiiquis d/t GI bleed for now Hyperglycemia -Glc 182 -pt denies h/o DM, so possibly d/t steroids -accuchecks, SS Insulin, Hypoglycemic protocol -check Hgba1c Low Magnesium -Mg 1.6 -supplement now and PRN HTN HLD -continue home medications: Metoprolol -hold home medications: Losartan Hypothyroidism -continue home medications: Levothyroxine -check TSH VTE Prophylaxis: SCDs only d/t GI bleed Code Status: D/W pt; she is DNR/DNI and has POLST ~Aye Sanchez MD Hospitalist Lab Results Lab results reviewed: Yes 12/01/24 23:14 12/01/24 23:14
[2024-12-02] MEDS ORDERED: ONDANSETRON 4 MG/2 ML VIAL IVP PRN (02:26)
[2024-12-02] MEDS ORDERED: SODIUM CHLORIDE FLUSH 0.9% 10 ML SYRINGE IVP PRN (02:26)
[2024-12-02] MEDS ORDERED: ONDANSETRON ODT 4 MG TABLET TL PRN (02:26)
--- OUTSIDE RECORDS SUMMARY | 2024-12-02 02:31 | EXTERNAL MEDICAL SUMMARY RPT | Continuity of Care Document ---
Author Organization War Address [address] [place] [id number] Phone Problems date description facility 2024-09-03 13:28 Encounter for therapeutic drug level monitoring [facility] 2024-09-28 10:30 Encounter for therapeutic drug level monitoring [facility] 2024-09-28 10:30 termination clerk (current) use of anti coagulants [facility] 2024-09-29 00:04 Encounter for therapeutic drug level monitoring [facility] 2024-09-29 00:04 termination clerk (current) use of anti coagulants [facility] 2024-10-02 09:42 Dysuria [facility] 2024-10-02 09:44 Dysuria [facility] 2024-10-03 00:03 Dysuria [employer] 2024-10-03 09:24 Dysuria [facility] 2024-10-03 10:04 Urinary tract infection, site n ot specified [facility] 2024-10-03 10:10 Acute cystitis with hematuria [facility] 2024-10-03 10:10 Urinary tract infection, site n ot specified [facility] 2024-10-03 13:25 Multiple myeloma not having ach ieved remission [facility] 2024-10-04 00:02 Acute cystitis with hematuria [facility] 2024-10-04 00:02 Urinary tract infection, site n ot specified [facility] 2024-10-04 00:04 Urinary tract infection, site n ot specified [facility] 2024-10-18 14:40 Multiple myeloma not having ach ieved remission [facility] 2024-10-18 15:38 [facility], [facility] 2024-10-18 15:38 Unspecified injury of head, ini tial encounter [facility] 2024-10-22 11:27 Multiple myeloma not having ach ieved remission [facility] 2024-10-22 11:28 Multiple myeloma not having ach ieved remission [facility] 2024-10-22 11:30 Multiple myeloma not having ach ieved remission [facility] 2024-10-22 11:52 Multiple myeloma not having ach ieved remission [facility] 2024-10-23 00:03 Multiple myeloma not having ach ieved remission [facility] 2024-10-25 12:22 Diarrhea, unspecified [facility] 2024-10-25 12:23 Diarrhea, unspecified [facility] 2024-10-25 12:23 Weakness [facility] 2024-10-25 12:31 Syncope and collapse [facility] 2024-10-25 15:59 Diarrhea, unspecified [facility] 2024-10-25 15:59 Headache, unspecified [facility] 2024-10-25 15:59 Weakness [facility] 2024-10-25 15:59 Unspecified injury of head, ini tial encounter [facility] 2024-10-29 13:03 Encounter for therapeutic drug level monitoring [facility] 2024-10-29 13:03 termination clerk (current) use of anti coagulants [facility] 2024-10-30 00:05 Encounter for therapeutic drug level monitoring [facility] 2024-10-30 00:05 termination clerk (current) use of anti coagulants [facility] 2024-11-09 12:18 Multiple myeloma in relapse [facility] 2024-11-09 12:18 Unspecified hearing loss, bilat eral [facility] 2024-11-09 12:18 Essential (primary) hypertensio n [facility] 2024-11-09 12:18 Urinary tract infection, site n ot specified [facility] 2024-11-09 12:18 Diarrhea, unspecified [facility] 2024-11-09 12:18 Repeated falls [facility] 2024-11-09 12:18 Headache, unspecified [facility] 2024-11-09 12:18 Weakness [facility] 2024-11-09 12:18 Unspecified injury of head, ini tial encounter [facility] 2024-11-09 12:18 Other specified counseling [facility] [employer] 2024-11-09 12:18 termination clerk (current) use of anti coagulants [facility] 2024-11-09 12:18 Personal history of other venous thrombosis and embolism [facility] 2024-11-12 11:49 Multiple myeloma in relapse [facility] 2024-11-12 11:49 Unspecified hearing loss, bilat eral [facility] 2024-11-12 11:49 Essential (primary) hypertensio n [facility] 2024-11-12 11:49 Urinary tract infection, site n ot specified [facility] 2024-11-12 11:49 Repeated falls [facility] 2024-11-12 11:49 Encounter for palliative care [facility] 2024-11-12 11:49 Other specified [facility] [employer] 2024-11-12 11:49 termination clerk (current) use of anti coagulants [facility] 2024-11-12 11:49 Personal history of other venous thrombosis and embolism [facility] 2024-11-19 16:34 Urinary tract infection, site n ot specified [employer] [facility] 2024-11-22 11:43 Urinary tract infection, site n ot specified [facility] 2024-11-22 11:43 Syncope and collapse [facility] 2024-11-22 11:43 Unspecified injury of head, ini tial encounter [employer] [facility] 2024-11-26 07:13 Multiple myeloma in relapse [facility] 2024-11-26 07:13 Unspecified hearing loss, bilat eral [employer] [facility] 2024-11-26 07:13 Urinary tract infection, site n ot specified [employer] 2024-11-26 07:13 Repeated falls [employer] [facility] 2024-11-26 07:13 Encounter for palliative care [facility] 2024-11-26 07:13 termination clerk (current) use of anti coagulants [employer] 2024-11-26 07:13 Personal history of other venous thrombosis and embolism [employer] 2024-11-26 09:41 Headache, unspecified [facility] 2024-11-30 14:05 Multiple myeloma in relapse [facility] 2024-11-30 14:05 Urinary tract infection, site n ot specified [facility] 2024-11-30 14:05 Postmenopausal bleeding [facility] 2024-11-30 14:05 Repeated falls [facility] 2024-11-30 14:05 [facility] 2024-11-30 14:05 Personal history of other venous thrombosis and embolism [facility] 2024-12-01 23:08 Contusion of unspeci fied part of head, initial encounter [facility] Results/Labs test date facility value unit notes Result panel 1 WHOLE BLOOD INR 2024-09-28 10:34 [facility] 2.1 (m issing) Y WARFARIN Oral Anticoagulant Indication INR range Venous Thrombosis, P.E. 2.0 - 3.0 Mechanical Valve 2.5 - 3.5 Result panel 2 NUCLEATED RED BLOOD CELLS AUTO 2024-10-02 09:57 [facility] 0.0 /100wbc (missing) BASOPHILS # (AUTO) 2024-10-02 09:57 [facility] 0.0 10 3/ul (missing) NRBC ABSOLUTE COUNT (AUTO) 2024-10-02 09:57 [facility] 0.00 x10 3/ul (missing) KAPPA/LAMBDA RATIO SERUM 2024-10-02 09:57 [facility] 0.02 (missing) Performed at: [facility] [id number], [place], [place] [id number] Machine Bookkeeper: Marta Verma MD, Phone: [phone] EOSINOPHILS # (AUTO) 2024-10-02 09:57 [facility] 0.1 10 3/ul (missing) MONOCYTES # (AUTO) 2024-10-02 09:57 [facility] 0.3 10 3/ul (missing) [id number] 2024-10-02 09:57 [facility] 0.3 g/dl (missing) BILIRUBIN,TOTAL 2024-10-02 09:57 [facility] 0.5 mg/dl As of February 2023 testing method has changed, this may include reference ranges. LYMPHOCYTES # (AUTO) 2024-10-02 09:57 [facility] 0.6 10 3/ul (missing) ALBUMIN/GLOBULIN RATIO 2024-10-02 09:57 [facility] 0.7 (missing) (missing) A/G RATIO 2024-10-02 09:57 [facility] 0.8 (missing) (missing) [id number] 2024-10-02 09:57 [facility] 0.8 g/dl (missing) BETA GLOBULIN 2024-10-02 09:57 [facility] 0.9 g/dl (missing) CREATININE 2024-10-02 09:57 [facility] 1.0 mg/dl As of February 2023 testing method has changed, this may include reference ranges. M-SPIKE 2024-10-02 09:57 [facility] 1.8 g/dl (missing) CHLORIDE 2024-10-02 09:57 [facility] 104 mmol/l As of February 2023 testing method has changed, this may include reference ranges. MEAN CORPUSCULAR VOLUME 2024-10-02 09:57 [facility] 105.3 fl (missing) ANION GAP 2024-10-02 09:57 [facility] 11.0 (missing) (missing) HGB - HEMOGLOBIN 2024-10-02 09:57 [facility] 11.9 g/dl (missing) RED CELL DISTRIBUTION WIDTH 2024-10-02 09:57 [facility] 13.4 % (missing) SODIUM 2024-10-02 09:57 [facility] 139 mmol/l As of February 2023 testing method has changed, this may include reference ranges. AST ASPARTATE AMINOTRANSFERASE 2024-10-02 09:57 [facility] 15 iu/l As of February 2023 testing method has changed, this may include reference ranges. BUN - BLOOD UREA NITROGEN 2024-10-02 09:57 [facility] 17 mg/dl As of February 2023 testing method has changed, this may include reference ranges. GLUCOSE 2024-10-02 09:57 [facility] 191 mg/dl As of February 2023 testing method has changed, this may include reference ranges. GAMMA GLOBULIN 2024-10-02 09:57 [facility] 2.4 g/dl (missing) IMMUNOGLOBULIN A (IGA) 2024-10-02 09:57 [facility] 2104 mg/dl Results confirmed on dilution. PLT - PLATELET COUNT 2024-10-02 09:57 [facility] 217 10 3/ul (missing) ALT ALANINE AMINOTRANSFERASE 2024-10-02 09:57 [facility] 23 iu/l As of February 2023 testing method has changed, this may include reference ranges. CARBON DIOXIDE - CO2 2024-10-02 09:57 [facility] 24 mmol/l As of February 2023 testing method has changed, this may include reference ranges. ALBUMIN 2024-10-02 09:57 [facility] 3.2 g/dl (missing) ALBUMIN 2024-10-02 09:57 [facility] 3.3 g/dl As of February 2023 testing method has changed, this may include reference ranges. POTASSIUM 2024-10-02 09:57 [facility] 3.5 mmol/l As of February 2023 testing method has changed, this may include reference ranges. RED BLOOD COUNT 2024-10-02 09:57 [facility] 3.59 10 6/ul (missing) NEUTROPHILS # (AUTO) 2024-10-02 09:57 [facility] 3.7 10 3/ul (missing) MEAN CORPUSCULAR HGB CONC 2024-10-02 09:57 [facility] 31.5 g/dl (missing) LAMBDA FREE LT CHAINS SERUM 2024-10-02 09:57 [facility] 314.5 mg/l (missing) MEAN CORPUSCULAR HEMOGLOBIN 2024-10-02 09:57 [facility] 33.1 pg (missing) HCT - HEMATOCRIT 2024-10-02 09:57 [facility] 37.8 % (missing) GLOBULIN TOTAL 2024-10-02 09:57 [facility] 4.3 g/dl (missing) GLOBULIN 2024-10-02 09:57 [facility] 4.5 g/dl (missing) WHITE BLOOD COUNT 2024-10-02 09:57 [facility] 4.7 x10 3/ul (missing) GFR - MDRD 2024-10-02 09:57 [facility] 53 (missing) Social History date description facility
[2024-12-02 03:22] LABS: BASOPHILS % (AUTO) 0.5 %; EOSINOPHILS % (AUTO) 0.7 %; HCT - HEMATOCRIT 28.4 % (37.0-47.0); HGB - HEMOGLOBIN 8.7 g/dL (12.0-16.0); LYMPHOCYTES # (AUTO) 0.3 10^3/uL (1.5-3.5); LYMPHOCYTES % (AUTO) 5.1 %; MEAN CORPUSCULAR HEMOGLOBIN 32.8 pg (27.0-31.0); MEAN CORPUSCULAR HGB CONC 30.6 g/dL (32.0-36.0); MEAN CORPUSCULAR VOLUME 107.2 fL (81.0-99.0); MONOCYTES # (AUTO) 0.1 10^3/uL (0.0-1.0); NEUTROPHILS # (AUTO) 5.3 10^3/uL (1.5-6.6); NEUTROPHILS % (AUTO) 90.7 %; PLT - PLATELET COUNT 226 10^3/uL (130-450); RED BLOOD COUNT 2.65 10^6/uL (4.20-5.40); RED CELL DISTRIBUTION WIDTH 17.5 % (12.0-15.0); WHITE BLOOD COUNT 5.9 x10^3/uL (4.8-10.8)
[2024-12-02 03:34] LABS: MAGNESIUM 1.5 mg/dL (1.7-2.3)
[2024-12-02] MEDS ORDERED: oxyCODONE 5 MG TABLET PO PRN (03:34)
[2024-12-02 03:39] LABS: CALCIUM 8.4 mg/dL (8.5-10.3); CREATININE 0.9 mg/dL (0.6-1.3); POTASSIUM 3.6 mmol/L (3.5-4.5)
[2024-12-02] MEDS: ASCORBIC ACID 500 MG TABLET PO SCH (03:52)
[2024-12-02] MEDS: SODIUM CHLORIDE 0.9% 1,000 ML IV SCH (03:52)
[2024-12-02] MEDS: MAGNESIUM SULFATE 2 GM in SODIUM CHLORIDE 0.9% 50 ML IV ONE (05:25)
[2024-12-02] MEDS: PANTOPRAZOLE 40 MG VIAL IVP SCH ×2 (06:47→20:42)
[2024-12-02] MEDS: LEVOTHYROXINE 100 MCG TABLET PO SCH (06:47)
[2024-12-02] MEDS: INSULIN LISPRO 300 UNIT/3 ML PEN SUBQ SCH (08:36)
[2024-12-02 08:38] LABS: HCT - HEMATOCRIT 26.3 % (37.0-47.0); HGB - HEMOGLOBIN 8.1 g/dL (12.0-16.0)
[2024-12-02] MEDS: MULTIVITAMIN TABLET PO SCH (08:38)
[2024-12-02] MEDS: CYANOCOBALAMIN 500 MCG TABLET PO SCH (08:38)
[2024-12-02] MEDS: METOPROLOL SUCCINATE 25 MG TABLET PO SCH (08:38)
[2024-12-02] MEDS: SODIUM CHLORIDE FLUSH 0.9% 10 ML SYRINGE IVP SCH (08:38)
[2024-12-02] MEDS: POMALIDOMIDE 4 MG PO SCH (08:39)
[2024-12-02] MEDS: CHOLECALCIFEROL 25 MCG TABLET PO SCH (08:43)
[2024-12-02] MEDS ORDERED: LOSARTAN 50 MG TABLET PO SCH (09:00)
[2024-12-02 11:45] LABS: ESTIMATED AVERAGE GLUCOSE 146 mg/dL (70-100); HEMOGLOBIN A1c% 6.7 % (4.27-6.07)
--- NOTE | 2024-12-02 12:33 | PHARMACY PROGRESS NOTE ---
Best Possible Medication History Admit Date and Time: 12/02/24 [id number] Home Medications Medication Instructions Recorded Confirmed Type levothyroxine 100 mcg tablet 100 mcg PO QDAC 05/01/23 12/02/24 History metoprolol succinate 25 mg 25 mg PO DAILY 05/01/23 12/02/24 History tablet,extended release 24 hr pomalidomide 4 mg capsule 4 mg PO QAM 10/03/24 12/02/24 History (Pomalyst) acetaminophen 500 mg capsule 500 mg PO ONCE 11/07/24 12/02/24 History ascorbic acid (vitamin C) 1,000 mg 1 g PO QDAY 11/07/24 12/02/24 History capsule cholecalciferol (vitamin D3) 25 50 mcg PO QDAY 11/07/24 12/02/24 History mcg (1,000 unit) capsule cranberry 500 mg capsule 500 mg PO BID 11/07/24 12/02/24 History d-mannose 500 mg capsule 1,000 mg (2 x 500 mg) PO BID #60 11/07/24 12/02/24 Rx caps dexamethasone 4 mg tablet 20 mg PO .once per week 11/07/24 12/02/24 History loperamide 2 mg capsule 4 mg PO Q6H PRN loose stool 11/07/24 12/02/24 History (Anti-Diarrheal (loperamide)) losartan 100 mg tablet 50 mg PO DAILY 11/07/24 12/02/24 History mecobalamin (vitamin B12) 1,000 2,000 mcg PO QDAY 11/07/24 12/02/24 History mcg chewable tablet multivitamin 1 tab PO QAM 11/07/24 12/02/24 History oxycodone-acetaminophen 5 mg-325 1 tab PO Q6H PRN pain #30 tabs 11/21/24 12/02/24 Rx mg tablet apixaban 5 mg tablet (Eliquis) 5 mg PO BID 11/27/24 12/02/24 History amlodipine 2.5 mg tablet 2.5 mg PO ONCE 12/02/24 12/02/24 History Processed by: Pharmacy Medications reviewed in ED?: Yes Medication History completed: Yes Patient Interview: Pt unable to participate Secondary Source(s): Insurance records [facility] Statement: Patient unable to participate in medication interview. [employer] insurance records reviewed as well as med reconciliation from ED. As the person ultimately responsible for medication therapy, providers are able to order a medication from an existing home medication list in [facility] via the "Reconcile Routine" prior to Confirmation of that medication by ground crewman aircraft support. Such practice is discouraged except when the physician, in their clinical judgment, deems that a medical need exists for a medication without regard to previous use.
[2024-12-02 14:31] LABS: HCT - HEMATOCRIT 25.1 % (37.0-47.0); HGB - HEMOGLOBIN 7.9 g/dL (12.0-16.0)
--- NOTE | 2024-12-02 14:54 | CONSULTATION NOTE ---
Referring Provider Name of Referring Provider:: Dr. Jc Consult Date: 12/02/24 Chief Complaint Chief Complaint Chief Complaint: Syncope, anemia, rectal bleeding History of Present Illness History of Present Illness HPI Comment/Other: 79 year old female with a syncopal episode yesterday and was transported to our ED with SBP 90. She was found to be anemic and admits to a recent history of loose and slightly bloody bowel motions. She has a history of multiple myeloma and is currently taking Apixaban for a history of DVT. I do not know when the DVT occurred but her last Duplex study of her lower extremities was in 2019 and was normal. She denies abdominal pain or the use of NSAIDs. She admits to having a colonosopy at [place] a few years ago and was not told that there were any issues with the examination. She was admitted to the Internal Medicine service and after the initiation of IV fluids, her Hct decreased from 33% to 25% over the initial 14 hours of admission and the General Surgery Service was requested to assist in her evaluation and management. Her blood pressure and pulse have remained normal since admission. CTA of the abdomen and pelvis was performed early today. There is no evidence of active bleeding seen in the colon. The distal descending colon has image evidence of wall thickening consistent with colitis. At the time of my encounter with the patient she was awake, alert and in no distress. She complained of no abdominal pain. 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) Transient hypotension (Acute) Multiple myeloma (Acute) Bony pelvic pain (Acute) Contusion of head (Acute) Fall (Acute) Anticoagulant long-term use (Acute) Postural dizziness with near syncope (Acute) Dysuria (Acute) Strain of calf muscle (Acute) Medical History Medical History Multiple myeloma Surgical History Surgical History History of auto stem cell transplant Family History Family History Son Mental disorder Social History Social History Smoking Status: Never smoker Second hand tobacco smoke exposure: No Do you dip or chew tobacco?: No Do you vape?: No Patient requests smoking cessation consult: No Initiate information on smoking cessation: No Living arrangement: At home Marital Status: Living Condition: With family More Information: Mario 2019 Support Person: Yes Relationship: Level: Independent Home Mobility Equipment: Walker and Wheeled walker Do you feel safe in your home environment?: Yes Suffered physical, verbal, emotional, or financial abuse?: No History of Abuse: No ETOH Use: Liquor Frequency: Daily ETOH Use Details: [place] cream in coffee daily Substance Use: denies use POLST Patient has POLST: Yes POLST Status: DNR (Selective treatment) Meds/Allgy Home Medications Ambulatory Orders Medication Instructions Recorded Confirmed levothyroxine 100 mcg tablet 100 mcg PO QDAC 05/01/23 12/02/24 metoprolol succinate 25 mg 25 mg PO DAILY 05/01/23 12/02/24 tablet,extended release 24 hr pomalidomide 4 mg capsule 4 mg PO QAM 10/03/24 12/02/24 (Pomalyst) acetaminophen 500 mg capsule 500 mg PO ONCE 11/07/24 12/02/24 ascorbic acid (vitamin C) 1,000 mg 1 g PO QDAY 11/07/24 12/02/24 capsule cholecalciferol (vitamin D3) 25 50 mcg PO QDAY 11/07/24 12/02/24 mcg (1,000 unit) capsule cranberry 500 mg capsule 500 mg PO BID 11/07/24 12/02/24 d-mannose 500 mg capsule 1,000 mg (2 x 500 mg) PO BID #60 11/07/24 12/02/24 caps dexamethasone 4 mg tablet 20 mg PO .once per week 11/07/24 12/02/24 loperamide 2 mg capsule 4 mg PO Q6H PRN loose stool 11/07/24 12/02/24 (Anti-Diarrheal (loperamide)) losartan 100 mg tablet 50 mg PO DAILY 11/07/24 12/02/24 mecobalamin (vitamin B12) 1,000 2,000 mcg PO QDAY 11/07/24 12/02/24 mcg chewable tablet multivitamin 1 tab PO QAM 11/07/24 12/02/24 oxycodone-acetaminophen 5 mg-325 1 tab PO Q6H PRN pain #30 tabs 11/21/24 12/02/24 mg tablet apixaban 5 mg tablet (Eliquis) 5 mg PO BID 11/27/24 12/02/24 amlodipine 2.5 mg tablet 2.5 mg PO ONCE 12/02/24 12/02/24 Allergies Allergies Allergy/AdvReac Type Severity Reaction Status Date / Time No Known Drug Allergies Allergy Verified 12/01/24 23:08 Results Lab Results 12/02/24 14:23 12/02/24 03:17 Other Lab Results: Lab Results x24hrs 12/02/24 12/02/24 12/02/24 Range/Units 14:23 11:26 08:30 WBC (4.8-10.8) x10^3/uL RBC (4.20-5.40) 10^6/uL Hgb 7.9 L 8.1 L (12.0-16.0) g/dL Hct 25.1 L 26.3 L (37.0-47.0) % MCV (81.0-99.0) fL MCH (27.0-31.0) pg MCHC (32.0-36.0) g/dL RDW (12.0-15.0) % Plt Count (130-450) 10^3/uL MPV (7.9-10.8) fL Neut # (Auto) (1.5-6.6) 10^3/uL Lymph # (Auto) (1.5-3.5) 10^3/uL [place] # (Auto) (0.0-1.0) 10^3/uL Eos # (Auto) (0.0-0.7) 10^3/uL Baso # (Auto) (0.0-0.1) 10^3/uL Absolute Nucleated RBC x10^3/uL Nucleated RBC % /100WBC PT (9.9-12.6) secs INR (0.8-1.2) Sodium (135-145) mmol/L Potassium (3.5-4.5) mmol/L Chloride (101-111) mmol/L Carbon Dioxide (21-32) mmol/L Anion Gap (6-13) BUN (6-20) mg/dL Creatinine (0.6-1.3) mg/dL Estimated GFR (MDRD) (>89) Glucose (74-104) mg/dL POC Whole Bld Glucose 130 (70-100) mg/dL Calcium (8.5-10.3) mg/dL Magnesium (1.7-2.3) mg/dL Total Bilirubin (0.2-1.0) mg/dL AST (10-42) IU/L ALT (10-60) IU/L Alkaline Phosphatase (42-121) IU/L Total Protein (6.4-8.9) g/dL Albumin (3.2-5.5) g/dL Globulin (2.1-4.2) g/dL Albumin/Globulin Ratio (1.0-2.2) Lipase (11-82) U/L Blood Type Blood Type Recheck Antibody Screen LEWIS, IgG Specific LEWIS, Polyspecific LEWIS, C3d Specific Crossmatch Crossmatch IS Only 12/02/24 12/02/24 12/01/24 Range/Units 07:44 03:17 23:30 WBC 5.9 (4.8-10.8) x10^3/uL RBC 2.65 L (4.20-5.40) 10^6/uL Hgb 8.7 L (12.0-16.0) g/dL Hct 28.4 L (37.0-47.0) % MCV 107.2 H (81.0-99.0) fL MCH 32.8 H (27.0-31.0) pg MCHC 30.6 L (32.0-36.0) g/dL RDW 17.5 H (12.0-15.0) % Plt Count 226 (130-450) 10^3/uL MPV 9.0 (7.9-10.8) fL Neut # (Auto) 5.3 (1.5-6.6) 10^3/uL Lymph # (Auto) 0.3 L (1.5-3.5) 10^3/uL [place] # (Auto) 0.1 (0.0-1.0) 10^3/uL Eos # (Auto) 0.0 (0.0-0.7) 10^3/uL Baso # (Auto) 0.0 (0.0-0.1) 10^3/uL Absolute Nucleated RBC 0.00 x10^3/uL Nucleated RBC % 0.0 /100WBC PT (9.9-12.6) secs INR (0.8-1.2) Sodium 137 (135-145) mmol/L Potassium 3.6 (3.5-4.5) mmol/L Chloride 104 (101-111) mmol/L Carbon Dioxide 23 (21-32) mmol/L Anion Gap 10.0 (6-13) BUN 14 (6-20) mg/dL Creatinine 0.9 (0.6-1.3) mg/dL Estimated GFR (MDRD) 60 L (>89) Glucose 166 H (74-104) mg/dL POC Whole Bld Glucose 136 (70-100) mg/dL Calcium 8.4 L (8.5-10.3) mg/dL Magnesium 1.5 L (1.7-2.3) mg/dL Total Bilirubin (0.2-1.0) mg/dL AST (10-42) IU/L ALT (10-60) IU/L Alkaline Phosphatase (42-121) IU/L Total Protein (6.4-8.9) g/dL Albumin (3.2-5.5) g/dL Globulin (2.1-4.2) g/dL Albumin/Globulin Ratio (1.0-2.2) Lipase (11-82) U/L Blood Type Blood Type Recheck A POSITIVE Antibody Screen LEWIS, IgG Specific LEWIS, Polyspecific LEWIS, C3d Specific Crossmatch Crossmatch IS Only 12/01/24 Range/Units 23:14 WBC 7.1 (4.8-10.8) x10^3/uL RBC 3.08 L (4.20-5.40) 10^6/uL Hgb 10.2 L (12.0-16.0) g/dL Hct 33.3 L (37.0-47.0) % MCV 108.1 H (81.0-99.0) fL MCH 33.1 H (27.0-31.0) pg MCHC 30.6 L (32.0-36.0) g/dL RDW 17.4 H (12.0-15.0) % Plt Count 252 (130-450) 10^3/uL MPV 9.8 (7.9-10.8) fL Neut # (Auto) 6.3 (1.5-6.6) 10^3/uL Lymph # (Auto) 0.5 L (1.5-3.5) 10^3/uL [place] # (Auto) 0.1 (0.0-1.0) 10^3/uL Eos # (Auto) 0.1 (0.0-0.7) 10^3/uL Baso # (Auto) 0.0 (0.0-0.1) 10^3/uL Absolute Nucleated RBC 0.00 x10^3/uL Nucleated RBC % 0.0 /100WBC PT 18.7 H (9.9-12.6) secs INR 1.8 H (0.8-1.2) Sodium 140 (135-145) mmol/L Potassium 3.6 (3.5-4.5) mmol/L Chloride 103 (101-111) mmol/L Carbon Dioxide 24 (21-32) mmol/L Anion Gap 13.0 (6-13) BUN 16 (6-20) mg/dL Creatinine 1.0 (0.6-1.3) mg/dL Estimated GFR (MDRD) 53 L (>89) Glucose 182 H (74-104) mg/dL POC Whole Bld Glucose (70-100) mg/dL Calcium 9.2 (8.5-10.3) mg/dL Magnesium 1.6 L (1.7-2.3) mg/dL Total Bilirubin 0.8 (0.2-1.0) mg/dL AST 15 (10-42) IU/L ALT 23 (10-60) IU/L Alkaline Phosphatase 80 (42-121) IU/L Total Protein 8.0 (6.4-8.9) g/dL Albumin 2.9 L (3.2-5.5) g/dL Globulin 5.1 H (2.1-4.2) g/dL Albumin/Globulin Ratio 0.6 L (1.0-2.2) Lipase < 10 L (11-82) U/L Blood Type A POSITIVE Blood Type Recheck Antibody Screen NEGATIVE LEWIS, IgG Specific Not Reportable LEWIS, Polyspecific NEGATIVE LEWIS, C3d Specific Not Reportable Crossmatch See Detail Crossmatch IS Only See Detail Diagnostic Imaging Results Diagnostic Imaging Results: positive See rad report Diagnostic Imaging Results Comments: CT images reviewed by me - ALVIN Conclusion and Plan Diagnosis Diagnosis: Syncopal episode due to acute blood loss anemia with suspected source of blood loss the lower colon. The patient is hemodynamically stable. Plan Plan: Recommendation: 1) As she has had a recent bleed and may require transfusion, discontinuation of the Apixaban is recommended. After the evaluation and management of this bleeding episode (endoscopy, transfusion, etc), the continued use of prophylactic anticoagulation in this patient should be re-evaluated as patients with multiple myeloma who have GI bleeding issues may benefit from less aggressive anticoagulation (ASA, eg). 2) Serial H&H, Transfuse as indicated 3) Obtain records of her last colonoscopy procedure. 4) Clear liquid diet 5) Endoscopic evaluation of the colon (flex sig or colonoscopy) may become necessary. As my surgical shift ends at 0700 tomorrow, I will sign-out this patient to the on-call surgeon (Dr. Mckeon) who will evaluate and provide further recommendations at that time. Arron Calhoun MD, [facility] General Surgery Service Review of Systems Status of ROS: 10 or more systems reviewed and unremarkable except as noted in history and below Exam Exam Vital Signs: Vital Signs x48h Temp Pulse Resp BP Pulse Ox O2 Flow Rate 12/02/24 08:10 36.7 C 79 22 128/59 L 95 1 Constitutional normal general appearance and no apparent distress [facility] normocephalic Eyes PERRL and conjunctivae normal Somewhat hearing impaired Neck/C-Spine visual inspection normal and trachea midline Respiratory breath sounds equal bilaterally, normal respiratory effort and clear to auscultation bilaterally Cardiovascular normal heart rate noted, regular rhythm noted and no murmur Gastrointestinal abdomen normal to inspection, abdomen soft to palpation, nontender to palpation, nontender to percussion, nondistended and normoactive bowel sounds Extremities normal to inspection Psychiatry mental status grossly normal, thought process normal, cooperative and affect normal Skin skin color normal
[2024-12-02 20:30] LABS: HGB - HEMOGLOBIN 8.1 g/dL (12.0-16.0)
[2024-12-03 02:43] LABS: BASOPHILS % (AUTO) 0.2 %; EOSINOPHILS # (AUTO) 0.1 10^3/uL (0.0-0.7); EOSINOPHILS % (AUTO) 1.6 %; HCT - HEMATOCRIT 26.1 % (37.0-47.0); HGB - HEMOGLOBIN 8.1 g/dL (12.0-16.0); LYMPHOCYTES # (AUTO) 0.4 10^3/uL (1.5-3.5); LYMPHOCYTES % (AUTO) 8.4 %; MEAN CORPUSCULAR HEMOGLOBIN 32.9 pg (27.0-31.0); MEAN CORPUSCULAR VOLUME 106.1 fL (81.0-99.0); MONOCYTES # (AUTO) 0.2 10^3/uL (0.0-1.0); MONOCYTES % (AUTO) 4.7 %; NEUTROPHILS # (AUTO) 3.8 10^3/uL (1.5-6.6); NEUTROPHILS % (AUTO) 83.3 %; PLT - PLATELET COUNT 191 10^3/uL (130-450); RED BLOOD COUNT 2.46 10^6/uL (4.20-5.40); RED CELL DISTRIBUTION WIDTH 17.2 % (12.0-15.0); WHITE BLOOD COUNT 4.5 x10^3/uL (4.8-10.8)
[2024-12-03 02:49] LABS: MAGNESIUM 1.6 mg/dL (1.7-2.3)
[2024-12-03 02:54] LABS: CALCIUM 7.4 mg/dL (8.5-10.3); CREATININE 0.8 mg/dL (0.6-1.3); POTASSIUM 3.1 mmol/L (3.5-4.5)
--- NOTE | 2024-12-03 07:09 | PROVIDER PROGRESS NOTE ---
Subjective General Admit Date: 12/02/24 Other Other Information/Narrative: Patient resting comfortably. Tired, and bothered by NC. Denies pain, nausea. Exam Exam Vital Signs: Vital Signs x48h Temp Pulse Resp BP Pulse Ox O2 Flow Rate 12/03/24 07:50 98.1 F 83 24 122/60 96 2 GEN: NAD CV: RRR Pulm: non labored, on 1L NC Abd: soft, ND, no tenderness to superficial or deep palpation, no r/g ABX Reporting Has patient been on IV antibiotics over the past 48 hours?: Yes Impression/Plan Problem List (1) Acute colitis: Plan: - descending colitis on CT at time of presentation, CTA negative for active bleeding. - hgb stable for 24 hours - obtain records from last colonoscopy - ok for patient to have liquids and to SLIV from surgery standpoint - The patient may benefit from outpatient colonoscopy in close follow up given CT findings and anemia. Outpatient prep is easier for patients to tolerate, and generally superior. I would also like to allow her colitis to improve to reduce risk of perforation as much as possible, but if patient's hgb were to drop again, would consider inpatient prep and scope. Plan On review of patient's chart, it appears she has a history of recurrent DVT in 2011, 2014.
[2024-12-03] MEDS: POTASSIUM CHLORIDE 20 MEQ/15 ML UDC PO SCH (08:06)
[2024-12-03 08:37] LABS: HCT - HEMATOCRIT 24.6 % (37.0-47.0); HGB - HEMOGLOBIN 7.9 g/dL (12.0-16.0)
--- NOTE | 2024-12-03 09:39 | PROVIDER PROGRESS NOTE ---
Subjective Subjective Subjective: This morning, patient is very sleepy. She states that she has no abdominal pain. She has not had any bowel movements overnight. Last documented bowel movement per nursing is yesterday morning around 8 AM, and it was brown and scant. She has no fevers or chills. Per oncology documentation and palliative care documentation, she was recently switched from Coumadin to Eliquis due to a supratherapeutic INR that was noted. Current Medications Current Medications Current Medications: Current Medications Generic Name Dose Route Start Last Admin Trade Name Freq PRN Reason Stop Dose Admin Acetaminophen 650 mg 12/02/24 02:26 Acetaminophen 325 Mg Tablet PO Q4HR PRN Pain 1 to 4, or Fever Ascorbic Acid 1,000 mg 12/02/24 03:00 12/03/24 08:06 Ascorbic Acid 500 Mg Tablet PO 1,000 mg DAILY ANN Administration Cholecalciferol 50 mcg 12/02/24 09:00 12/03/24 08:06 Cholecalciferol 25 Mcg Tablet PO 50 mcg DAILY ANN Administration Cyanocobalamin 2,000 mcg 12/02/24 09:00 12/03/24 08:06 Cyanocobalamin 500 Mcg Tablet PO 2,000 mcg DAILY ANN Administration Dexamethasone 20 mg 12/05/24 08:00 Dexamethasone 4 Mg Tablet PO OAW ANN Sodium Chloride 1,000 mls @ 100 mls/hr 12/02/24 03:00 12/03/24 03:58 Normal Saline 0.9% IV 100 mls/hr .Q10H ANN Administration Insulin Human Lispro 1 - 5 unit 12/02/24 08:00 12/03/24 08:09 Insulin Lispro 300 Unit/3 Ml Pen SUBQ Not Given 0800,1200,1700,2100 [facility] Protocol Levothyroxine Sodium 100 mcg 12/02/24 07:00 12/03/24 06:43 Levothyroxine 100 Mcg Tablet PO 100 mcg QDAC ANN Administration Metoprolol Succinate 25 mg 12/02/24 09:00 12/03/24 08:06 Metoprolol Succinate 25 Mg Tablet PO 25 mg DAILY ANN Administration Multivitamins 1 tab 12/02/24 08:00 12/03/24 08:06 Multivitamin Tablet PO 1 tab DAILYWM ANN Administration Non-Formulary Medication 500 mg 12/02/24 09:00 12/03/24 08:09 Cranberry PO Not Given BID ANN Non-Formulary Medication 1,000 mg 12/02/24 09:00 12/03/24 08:09 D-Mannose PO Not Given BID [facility] Non-Formulary Medication 4 mg 12/02/24 09:00 12/03/24 08:08 Pomalidomide [Pomalyst] PO Not Given DAILY ANN Ondansetron HCl 4 mg 12/02/24 02:26 Ondansetron Odt 4 Mg Tablet TL Q6HR PRN Nausea / Vomiting Ondansetron HCl 4 mg 12/02/24 02:26 Ondansetron 4 Mg/2 Ml Vial IVP Q6HR PRN Nausea / Vomiting Oxycodone HCl 5 mg 12/02/24 03:34 Oxycodone 5 Mg Tablet PO Q6H PRN Moderate Pain (Level 4-6) Pantoprazole Sodium 40 mg 12/02/24 21:00 12/03/24 08:08 Pantoprazole 40 Mg Vial IVP 40 mg BID ANN Administration Potassium Chloride 40 meq 12/03/24 08:00 12/03/24 08:06 Potassium Chloride 20 Meq/15 Ml Udc PO 12/03/24 14:01 40 meq Q2HR ANN Administration Sodium Chloride 10 ml 12/02/24 02:26 Sodium Chloride Flush 0.9% 10 Ml Syringe IVP PRN PRN NEEDED PER PROVIDER ORDERS Sodium Chloride 10 ml 12/02/24 09:00 12/03/24 08:08 Sodium Chloride Flush 0.9% 10 Ml Syringe IVP Not Given 0100,0900,1700 [facility] Objective Vital Signs/Intake & Output Reviewed Vital Signs: Yes Vital Signs: Vital Signs x48h Temp Pulse Resp BP Pulse Ox O2 Flow Rate 12/03/24 07:50 98.1 F 83 24 122/60 96 2 Intake & Output: Intake & Output 11/30/24 12/01/24 12/02/24 12/03/24 23:59 23:59 23:59 23:59 Intake Total 3624 / 3624 1000 / 1000 Output Total 500 / 500 950 / 950 Balance 3124 / 3124 50 / 50 Weight (kg) 71.2 kg 65.5 kg Objective General Appearance: positive No acute distress, Alert and Other (very hard of hearing); negative Anxious Eyes Bilateral: positive Normal inspection, PERRL and EOMI ENT: positive ENT inspection nml, Pharynx nml and No signs of dehydration Neck: positive Nml inspection, Thyroid nml and No JVD Respiratory: positive Chest non-tender and No respiratory distress; negative Wheezes, Rales or Rhonchi Cardiovascular: positive Regular rate & rhythm, No murmur and No gallop; negative Tachycardia, Bradycardia or Systolic murmur Abdomen: positive Non-tender and No distention; negative Guarding, Rebound, Hepatomegaly, Splenomegaly or Mass Rectal: positive Stool - heme POS Back: positive Nml inspection; negative CVA tenderness (R) or CVA tenderness (L) Skin: positive Color nml, No rash, Warm and Dry Extremities: positive Non-tender, Full ROM, Nml appearance and No pedal edema Neurologic/Psychiatric: positive Oriented x3 and Mood/affect nml Lab Results 12/03/24 08:30 12/03/24 02:36 Other Labs: Lab Results x24hrs 12/03/24 12/03/24 12/03/24 Range/Units 08:30 07:47 02:36 WBC 4.5 L (4.8-10.8) x10^3/uL RBC 2.46 L (4.20-5.40) 10^6/uL Hgb 7.9 L 8.1 L (12.0-16.0) g/dL Hct 24.6 L 26.1 L (37.0-47.0) % MCV 106.1 H (81.0-99.0) fL MCH 32.9 H (27.0-31.0) pg MCHC 31.0 L (32.0-36.0) g/dL RDW 17.2 H (12.0-15.0) % Plt Count 191 (130-450) 10^3/uL MPV 9.0 (7.9-10.8) fL Neut # (Auto) 3.8 (1.5-6.6) 10^3/uL Lymph # (Auto) 0.4 L (1.5-3.5) 10^3/uL [place] # (Auto) 0.2 (0.0-1.0) 10^3/uL Eos # (Auto) 0.1 (0.0-0.7) 10^3/uL Baso # (Auto) 0.0 (0.0-0.1) 10^3/uL Absolute Nucleated RBC 0.00 x10^3/uL Nucleated RBC % 0.0 /100WBC Sodium 138 (135-145) mmol/L Potassium 3.1 L (3.5-4.5) mmol/L Chloride 105 (101-111) mmol/L Carbon Dioxide 25 (21-32) mmol/L Anion Gap 8.0 (6-13) BUN 9 (6-20) mg/dL Creatinine 0.8 (0.6-1.3) mg/dL Estimated GFR (MDRD) 69 L (>89) Glucose 115 H (74-104) mg/dL POC Whole Bld Glucose 111 (70-100) mg/dL Estimat Average Glucose (70-100) mg/dL Hemoglobin A1c % (4.27-6.07) % Calcium 7.4 L (8.5-10.3) mg/dL Magnesium 1.6 L (1.7-2.3) mg/dL Blood Type Antibody Screen LEWIS, Polyspecific Crossmatch Crossmatch IS Only 12/02/24 12/02/24 12/02/24 Range/Units 20:41 20:24 16:31 WBC (4.8-10.8) x10^3/uL RBC (4.20-5.40) 10^6/uL Hgb 8.1 L (12.0-16.0) g/dL Hct 26.0 L (37.0-47.0) % MCV (81.0-99.0) fL MCH (27.0-31.0) pg MCHC (32.0-36.0) g/dL RDW (12.0-15.0) % Plt Count (130-450) 10^3/uL MPV (7.9-10.8) fL Neut # (Auto) (1.5-6.6) 10^3/uL Lymph # (Auto) (1.5-3.5) 10^3/uL [place] # (Auto) (0.0-1.0) 10^3/uL Eos # (Auto) (0.0-0.7) 10^3/uL Baso # (Auto) (0.0-0.1) 10^3/uL Absolute Nucleated RBC x10^3/uL Nucleated RBC % /100WBC Sodium (135-145) mmol/L Potassium (3.5-4.5) mmol/L Chloride (101-111) mmol/L Carbon Dioxide (21-32) mmol/L Anion Gap (6-13) BUN (6-20) mg/dL Creatinine (0.6-1.3) mg/dL Estimated GFR (MDRD) (>89) Glucose (74-104) mg/dL POC Whole Bld Glucose 107 125 (70-100) mg/dL Estimat Average Glucose (70-100) mg/dL Hemoglobin A1c % (4.27-6.07) % Calcium (8.5-10.3) mg/dL Magnesium (1.7-2.3) mg/dL Blood Type Antibody Screen LEWIS, Polyspecific Crossmatch Crossmatch IS Only 12/02/24 12/02/24 12/02/24 Range/Units 14:23 11:26 08:30 WBC (4.8-10.8) x10^3/uL RBC (4.20-5.40) 10^6/uL Hgb 7.9 L 8.1 L (12.0-16.0) g/dL Hct 25.1 L 26.3 L (37.0-47.0) % MCV (81.0-99.0) fL MCH (27.0-31.0) pg MCHC (32.0-36.0) g/dL RDW (12.0-15.0) % Plt Count (130-450) 10^3/uL MPV (7.9-10.8) fL Neut # (Auto) (1.5-6.6) 10^3/uL Lymph # (Auto) (1.5-3.5) 10^3/uL [place] # (Auto) (0.0-1.0) 10^3/uL Eos # (Auto) (0.0-0.7) 10^3/uL Baso # (Auto) (0.0-0.1) 10^3/uL Absolute Nucleated RBC x10^3/uL Nucleated RBC % /100WBC Sodium (135-145) mmol/L Potassium (3.5-4.5) mmol/L Chloride (101-111) mmol/L Carbon Dioxide (21-32) mmol/L Anion Gap (6-13) BUN (6-20) mg/dL Creatinine (0.6-1.3) mg/dL Estimated GFR (MDRD) (>89) Glucose (74-104) mg/dL POC Whole Bld Glucose 130 (70-100) mg/dL Estimat Average Glucose (70-100) mg/dL Hemoglobin A1c % (4.27-6.07) % Calcium (8.5-10.3) mg/dL Magnesium (1.7-2.3) mg/dL Blood Type Antibody Screen LEWIS, Polyspecific Crossmatch Crossmatch IS Only 12/02/24 12/01/24 Range/Units 03:17 23:14 WBC (4.8-10.8) x10^3/uL RBC (4.20-5.40) 10^6/uL Hgb (12.0-16.0) g/dL Hct (37.0-47.0) % MCV (81.0-99.0) fL MCH (27.0-31.0) pg MCHC (32.0-36.0) g/dL RDW (12.0-15.0) % Plt Count (130-450) 10^3/uL MPV (7.9-10.8) fL Neut # (Auto) (1.5-6.6) 10^3/uL Lymph # (Auto) (1.5-3.5) 10^3/uL [place] # (Auto) (0.0-1.0) 10^3/uL Eos # (Auto) (0.0-0.7) 10^3/uL Baso # (Auto) (0.0-0.1) 10^3/uL Absolute Nucleated RBC x10^3/uL Nucleated RBC % /100WBC Sodium (135-145) mmol/L Potassium (3.5-4.5) mmol/L Chloride (101-111) mmol/L Carbon Dioxide (21-32) mmol/L Anion Gap (6-13) BUN (6-20) mg/dL Creatinine (0.6-1.3) mg/dL Estimated GFR (MDRD) (>89) Glucose (74-104) mg/dL POC Whole Bld Glucose (70-100) mg/dL Estimat Average Glucose 146 H (70-100) mg/dL Hemoglobin A1c % 6.7 H (4.27-6.07) % Calcium (8.5-10.3) mg/dL Magnesium (1.7-2.3) mg/dL Blood Type A POSITIVE Antibody Screen NEGATIVE LEWIS, Polyspecific NEGATIVE Crossmatch See Detail Crossmatch IS Only See Detail Diagnostic Imaging Diagnostic Imaging Results: positive Final report reviewed Assessment/Plan Problem List (1) Acute GI bleeding: Impression: Patient presents for weakness, bright red blood per rectum, as well as frequent falls. Hemoglobin has steadily dropped from 10.2 on admission to 7.9 this morning. 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 Switched IV Protonix to oral Protonix twice daily. Continue IV fluid rehydration. I spoke with general surgery todayhemoglobin has now stabilized. Preferably, we would complete EGD and colonoscopy in the outpatient setting. However, if patient's hemoglobin continues to drop, we will complete it while she is inpatient. Plan is to start Eliquis tonight, watch hemoglobin overnight. If stable, will follow up outpatient. If decreases, may need scopes while here. I have reached out to her oncologist, Dr. Delgadillo with [facility]. Will discuss anticoagulation, although patient will likely need to be on lifelong anticoagulation due to recurrent DVTs, and constant hypercoagulable state with her active malignancy and treatment. (2) Acute colitis: Impression: Patient is not having any abdominal pain or active diarrhea. Monitor off antibiotics at this time. (3) Multiple myeloma: Impression: I reviewed her oncology notes from 11/05/2024. She has been dealing with multiple myeloma for over 12 years. 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 She has received a bone marrow transplant in 2016, and has had palliative radiation to her right hip for osseous lesions. She had a PET scan done recently, and is awaiting review with her oncologist. She is finishing up her second cycle of pomalidomide and dexamethasone. She is also pending dental work to initiate bisphosphonate therapy. have reached out to her oncologist, Dr. Delgadillo with [facility]. Will discuss anticoagulation, although patient will likely need to be on lifelong anticoagulation due to recurrent DVTs, and constant hypercoagulable state with her active malignancy. She is also working with palliative care, and last saw them 11/27/2024 for symptomatic management. She remains on oxycodone which helps with her pain and sleep. She is DNR and DNI, but is not ready to talk about hospice care. Qualifiers: Multiple myeloma remission status: in relapse Qualified Code(s): C90.02 - Multiple myeloma in relapse (4) Hypothyroid: Impression: Continue levothyroxine. Qualifiers: Hypothyroidism type: unspecified Qualified Code(s): E03.9 - Hypothyroidism, unspecified (5) Hypertension: Impression: Continue metoprolol. Qualifiers: Hypertension type: primary hypertension Qualified Code(s): I10 - Essential (primary) hypertension
[2024-12-03] MEDS: APIXABAN 5 MG TABLET PO SCH (20:50)
[2024-12-03] MEDS: PANTOPRAZOLE 40 MG TABLET PO SCH (20:50)
[2024-12-04] MEDS: METOPROLOL 5 MG/5 ML VIAL IVP ONE (01:13)
[2024-12-04 05:37] LABS: BASOPHILS % (AUTO) 0.2 %; EOSINOPHILS # (AUTO) 0.1 10^3/uL (0.0-0.7); HCT - HEMATOCRIT 26.5 % (37.0-47.0); HGB - HEMOGLOBIN 8.1 g/dL (12.0-16.0); LYMPHOCYTES # (AUTO) 0.3 10^3/uL (1.5-3.5); LYMPHOCYTES % (AUTO) 7.7 %; MEAN CORPUSCULAR HEMOGLOBIN 32.8 pg (27.0-31.0); MEAN CORPUSCULAR HGB CONC 30.6 g/dL (32.0-36.0); MEAN CORPUSCULAR VOLUME 107.3 fL (81.0-99.0); MEAN PLATELET VOLUME 9.1 fL (7.9-10.8); MONOCYTES # (AUTO) 0.3 10^3/uL (0.0-1.0); MONOCYTES % (AUTO) 7.2 %; NEUTROPHILS # (AUTO) 3.3 10^3/uL (1.5-6.6); NEUTROPHILS % (AUTO) 81.4 %; PLT - PLATELET COUNT 209 10^3/uL (130-450); RED BLOOD COUNT 2.47 10^6/uL (4.20-5.40); RED CELL DISTRIBUTION WIDTH 16.9 % (12.0-15.0)
[2024-12-04 06:03] LABS: CALCIUM 7.3 mg/dL (8.5-10.3); CREATININE 0.7 mg/dL (0.6-1.3); MAGNESIUM 1.5 mg/dL (1.7-2.3); POTASSIUM 3.2 mmol/L (3.5-4.5)
--- NOTE | 2024-12-04 07:34 | PROVIDER PROGRESS NOTE ---
Subjective General Admit Date: 12/02/24 Other Other Information/Narrative: Patient denies pain, tolerating diet. No n/v, but not very hungry. No acute events overnight. On review of patient's chart, it appears she has a history of recurrent DVT in 2011, 2014. Exam Exam Vital Signs: Vital Signs x48h Temp Pulse Resp BP Pulse Ox O2 Flow Rate 12/04/24 09:58 99.0 F 95 16 150/96 H 92 2 GEN: NAD CV: RRR Pulm: non labored, on 2L NC Abd: soft, ND, no tenderness to superficial or deep palpation, no r/g Impression/Plan Problem List (1) Acute colitis: Plan: - descending colitis on CT at time of presentation, CTA negative for active bleeding. - hgb stable for 48 hours - obtain records from last colonoscopy (still pending) - ok to adat, discharge from surgery standpoint - The patient may benefit from outpatient colonoscopy in close follow up given CT findings and anemia. Outpatient prep is easier for patients to tolerate, and generally superior. I would also like to allow her colitis to improve to reduce risk of perforation as much as possible, but if patient's hgb were to drop again, would consider inpatient prep and scope. Plan
--- NOTE | 2024-12-04 16:26 | OT Plan of Care ---
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 descending colitis on CT at time of presentation , CTA negative for active bleeding. Hgb stable for 48 hours. Awaiting surgical plan vs conservative treatment. Met supine in bed, A&O to self and place only Pt anxious, distractible but redirectable with encouragement and direct simple commands. Performed supine to sit MAX A, sit to stand MOD Ax2, and SPT MOD AX2 using RW. Heavy cues for sequencing, safety, and motor planning. Currently MAX A LB ADL ( perineal hygiene and brief change in standing Ax2 with A from nursing for hygiene). Overall presents with decreased endurance, activity tolerance and ADL status. Will benefit from cont OT services during acute stay. Rec d/c to SNF at this time. Goals - Activities of Daily Living Improve Upper Extremity Modified Independent Dressing to: Improve Lower Extremity Modified Independent Dressing to: Improve Grooming/Hygiene to: Modified Independent Improve Bathing to: Minimal Assist Improve Toileting to: Modified Independent Plan Treatment Frequency 1x/day -Discharge Recommendations Discharge Location [facility] Transport Needs at Discharge [facility]
--- NOTE | 2024-12-04 16:38 | PT Plan of Care ---
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 Admitted to hospital with GI bleed and acute colitis. PMH includes mult myeloma. Pt lives alone but has a caregiver for a few hours daily. Unable to establish prior living environment and PLOF d/t pt confusion. Upon PT eval, pt on 2L, sats 96% and transfers to EOB with minAx1. Unable to answer orientation questions d/t frustration and confusion. STS w/ FWW and modAx2 , retropulsive in standing and sits for rest breaks x3 during attempted transfer to change. Pt requires brief change and lyudmila [facility] assists with this d/t pt's need for 2 person skilled assist with multimodal cueing for prolonged standing. Pt is a high fall risk given her confusion, weakness, and balance impairments. May benefit from continued skilled PT in acute setting to reduce fall risk and progress functional mobility. When medically clear, PT rec dc to SNF for further rehab. Goals Improve bed mobility to: Modified Independent Improve supine to sit to: Modified Independent Improve sit to stand to: Modified Independent Improve pivot transfer ability Modified Independent to: Improve sit to supine to: Modified Independent Improve gait ability to: Min A Assistive Device Used: Front Wheeled Walker PT Plan of Care Frequency 1-2x/day Duration Until goals are met Discharge Recommendations Discharge Location [facility] Equipment Recommended Front wheeled walker Transport Needs at Discharge [facility]
--- NOTE | 2024-12-04 17:20 | PROVIDER PROGRESS NOTE ---
Subjective Prog Note Date Prog Note Date: 12/04/24 Prog Note Time: 17:18 Subjective Pt reports feeling: No change Subjective: I seen her twice today. Both times she was asleep but would awaken to my voice. She has been seen by social work, and physical therapy. She is described as walking with a wheeled walker at home. She gets caregivers 4 hours a day Tuesday through Tuesday. And on Tuesday her DPOA and friend goes over to take care of her. She does have 2 children. But she is not in contact with them. She was able to work with PT in spite of still being on 2 L nasal cannula. She is anxious. Is a moderate assist for transfers. Is a moderate assist for gait. She is not at baseline and will need some rehab. She was unable to answer orientation questions because she was frustrated and confused. She has retropulsion with standing and needed a lot of rest breaks. She already fell at home and this brought her into the hospital. She is assessed at being a continued fall risk. She has confusion, weakness, and balance impairments. Current Medications Current Medications Current Medications: Current Medications Generic Name Dose Route Start Last Admin Trade Name Freq PRN Reason Stop Dose Admin Acetaminophen 650 mg 12/02/24 02:26 Acetaminophen 325 Mg Tablet PO Q4HR PRN Pain 1 to 4, or Fever Apixaban 5 mg 12/03/24 21:00 12/04/24 08:52 Apixaban 5 Mg Tablet PO 5 mg BID ANN Administration Ascorbic Acid 1,000 mg 12/02/24 03:00 12/04/24 08:52 Ascorbic Acid 500 Mg Tablet PO 1,000 mg DAILY ANN Administration Cholecalciferol 50 mcg 12/02/24 09:00 12/04/24 08:52 Cholecalciferol 25 Mcg Tablet PO 50 mcg DAILY ANN Administration Cyanocobalamin 2,000 mcg 12/02/24 09:00 12/04/24 08:52 Cyanocobalamin 500 Mcg Tablet PO 2,000 mcg DAILY ANN Administration Dexamethasone 20 mg 12/05/24 08:00 Dexamethasone 4 Mg Tablet PO OAW ANN Levothyroxine Sodium 100 mcg 12/02/24 07:00 12/04/24 06:31 Levothyroxine 100 Mcg Tablet PO 100 mcg QDAC ANN Administration Metoprolol Succinate 25 mg 12/02/24 09:00 12/04/24 08:52 Metoprolol Succinate 25 Mg Tablet PO 25 mg DAILY [facility] Administration Multivitamins 1 tab 12/02/24 08:00 12/04/24 08:52 Multivitamin Tablet PO 1 tab DAILYWM [facility] Administration Non-Formulary Medication 500 mg 12/02/24 09:00 12/04/24 09:12 Cranberry PO Not Given BID ANN Non-Formulary Medication 1,000 mg 12/02/24 09:00 12/04/24 09:12 D-Mannose PO Not Given BID [facility] Ondansetron HCl 4 mg 12/02/24 02:26 Ondansetron Odt 4 Mg Tablet TL Q6HR PRN Nausea / Vomiting Ondansetron HCl 4 mg 12/02/24 02:26 Ondansetron 4 Mg/2 Ml Vial IVP Q6HR PRN Nausea / Vomiting Oxycodone HCl 5 mg 12/02/24 03:34 Oxycodone 5 Mg Tablet PO Q6H PRN Moderate Pain (Level 4-6) Pantoprazole Sodium 40 mg 12/03/24 21:00 12/04/24 09:12 Pantoprazole 40 Mg Tablet PO Not Given BID [facility] Pomalidomide [ 1 each 12/03/24 14:30 12/04/24 08:52 Pomalyst] 4 Mg PO 1 each Capsule DAILY [facility] Administration Sodium Chloride 10 ml 12/02/24 02:26 Sodium Chloride Flush 0.9% 10 Ml Syringe IVP PRN PRN NEEDED PER PROVIDER ORDERS Sodium Chloride 10 ml 12/02/24 09:00 12/04/24 08:58 Sodium Chloride Flush 0.9% 10 Ml Syringe IVP Not Given 0100,0900,1700 [facility] Objective Vital Signs/Intake & Output Reviewed Vital Signs: Yes Vital Signs: Vital Signs x48h Temp Pulse Resp BP Pulse Ox O2 Flow Rate 12/04/24 15:44 36.5 C 85 20 136/71 H 92 2 12/04/24 09:58 37.2 C 95 16 150/96 H 92 2 12/04/24 09:55 2 Intake & Output: Intake & Output 12/01/24 12/02/24 12/03/24 12/04/24 23:59 23:59 23:59 23:59 Intake Total 3624 / 3624 3360 / 3360 2120 / 2120 Output Total 500 / 500 1250 / 1250 1800 / 1800 Balance 3124 / 3124 2109 / 2109 320 / 320 Weight (kg) 71.2 kg 65.5 kg Objective General Appearance: positive No acute distress and Other (Cognitively delayed, frail, low weak voice.) Eyes Bilateral: positive PERRL ENT: positive No signs of dehydration Neck: positive Other (Shotty neck adenopathy, supple. No JVD) Respiratory: positive No respiratory distress and Other (Diminished at the bases. At 1 point she did some crackles but they disappeared with a strong cough.) Cardiovascular: positive Regular rate & rhythm and Systolic murmur Abdomen: positive Non-tender, No organomegaly, Nml bowel sounds and Other (Not much appetite. Eating 10 to 50% of her food. Oral intake is brisk at 1360 and is much as 1570.) Skin: positive Dry and Pallor Extremities: positive Non-tender and Full ROM; negative Pedal edema Neurologic/Psychiatric: positive Disoriented to place, Disoriented to time, Weakness and Depressed mood/affect; negative Slurred/abnml speech (But she does mumble. Fretful.) Lab Results 12/04/24 05:20 12/04/24 05:20 Other Labs: Lab Results x24hrs 12/04/24 Range/Units 05:20 WBC 4.0 L (4.8-10.8) x10^3/uL RBC 2.47 L (4.20-5.40) 10^6/uL Hgb 8.1 L (12.0-16.0) g/dL Hct 26.5 L (37.0-47.0) % MCV 107.3 H (81.0-99.0) fL MCH 32.8 H (27.0-31.0) pg MCHC 30.6 L (32.0-36.0) g/dL RDW 16.9 H (12.0-15.0) % Plt Count 209 (130-450) 10^3/uL MPV 9.1 (7.9-10.8) fL Neut # (Auto) 3.3 (1.5-6.6) 10^3/uL Lymph # (Auto) 0.3 L (1.5-3.5) 10^3/uL [place] # (Auto) 0.3 (0.0-1.0) 10^3/uL Eos # (Auto) 0.1 (0.0-0.7) 10^3/uL Baso # (Auto) 0.0 (0.0-0.1) 10^3/uL Absolute Nucleated RBC 0.00 x10^3/uL Nucleated RBC % 0.0 /100WBC Sodium 136 (135-145) mmol/L Potassium 3.2 L (3.5-4.5) mmol/L Chloride 104 (101-111) mmol/L Carbon Dioxide 23 (21-32) mmol/L Anion Gap 9.0 (6-13) BUN 7 (6-20) mg/dL Creatinine 0.7 (0.6-1.3) mg/dL Estimated GFR (MDRD) 80 L (>89) Glucose 112 H (74-104) mg/dL Calcium 7.3 L (8.5-10.3) mg/dL Magnesium 1.5 L (1.7-2.3) mg/dL ABX Reporting Has patient been on IV antibiotics over the past 48 hours?: Yes Assessment/Plan Problem List (1) Generalized weakness: Impression: We had planned for discharge today if her hemoglobin was stable. However she is profoundly weak. Her baseline is the ability to get up and walk to a commode is probably 10 feet away from her. She uses a walker within her home. She has caregivers 4 hours a day to make sure food is being done, that she is clean, and that her medicines are given to her. But she is requiring more care than that. PT feels that she should be discharged to a nursing home facilities. I had a long conversation with her DPOA today. He is amenable to that suggestion. He specifically requests [facility] as a place where she should go. He lives in [place] and it would be easier for him to see her there. She also has multiple friends in [place] and it would be easier for them to see her in [place] I will talk to social work and let them know that the DPOA has preferences. I have also asked him to give us a copy of his paperwork with regards to his legal status with her. He has [email or web address]. While she does have 2 children, he states that she is not in contact with them. (2) Acute GI bleeding: Impression: Patient presents for weakness, bright red blood per rectum, as well as frequent falls. Hemoglobin has steadily dropped from 10.2 on admission to 7.9 yesterday. She was stable enough that Gen Surg felt we could resume her Eliquis. If she did not have any other bleeding and her Hgb was stable, she could go home today. Preferably, we would complete EGD and colonoscopy in the outpatient setting. Today her Hgb is 8.1. 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 IV Protonix switched to oral Protonix twice daily. Since she is drinking enough, I will stop IVF. Previous provider did reach out to her oncologist, Dr. Delgadillo with [facility]. She did return the call today and I discussed the case with her. She feels we can resume the patient's anticoagulant but do not resume the pomalidomide. Plan: No discharge today. Continue eliquis. (3) Acute colitis: Impression: Patient is not having any abdominal pain or active diarrhea. Monitor off antibiotics at this time. (4) Multiple myeloma: Impression: Previous provider reviewed her oncology notes from 11/05/2024. She has been dealing with multiple myeloma for over 12 years. 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 She has received a bone marrow transplant in 2016, and has had palliative radiation to her right hip for osseous lesions. She had a PET scan done recently, and is awaiting review with her oncologist. She is finishing up her second cycle of pomalidomide and dexamethasone. She is also pending dental work to initiate bisphosphonate therapy. We asked that Dr. Delgadillo with [facility] reach out to us about managment. She does endorse the use of eliquis but wants the patient to stop the pomalidomide for now until she is seen again. She is also working with palliative care, and last saw them 11/27/2024 for symptomatic management. She remains on oxycodone which helps with her pain and sleep. She is DNR and DNI, but is not ready to talk about hospice care. Dr. Delgadillo will continue to expound on that conversation with the paitent's next visits with her. I shared the prognosis with her DPOA. Both Dr. Delgadillo and myself feel that her life expectancy is less than a year. Her DPOA says she has "really gone downhill over the last few weeks." Qualifiers: Multiple myeloma remission status: in relapse Qualified Code(s): C90.02 - Multiple myeloma in relapse (5) Hypothyroid: Impression: Continue levothyroxine. Qualifiers: Hypothyroidism type: unspecified Qualified Code(s): E03.9 - Hypothyroidism, unspecified (6) Hypertension: Impression: Continue metoprolol. Qualifiers: Hypertension type: primary hypertension Qualified Code(s): I10 - Essential (primary) hypertension
[2024-12-05 08:24] LABS: BASOPHILS % (AUTO) 0.7 %; EOSINOPHILS # (AUTO) 0.2 10^3/uL (0.0-0.7); EOSINOPHILS % (AUTO) 7.7 %; HGB - HEMOGLOBIN 7.9 g/dL (12.0-16.0); LYMPHOCYTES # (AUTO) 0.2 10^3/uL (1.5-3.5); LYMPHOCYTES % (AUTO) 8.4 %; MEAN CORPUSCULAR HEMOGLOBIN 32.9 pg (27.0-31.0); MEAN CORPUSCULAR HGB CONC 31.6 g/dL (32.0-36.0); MEAN CORPUSCULAR VOLUME 104.2 fL (81.0-99.0); MEAN PLATELET VOLUME 9.4 fL (7.9-10.8); MONOCYTES # (AUTO) 0.3 10^3/uL (0.0-1.0); MONOCYTES % (AUTO) 9.5 %; NEUTROPHILS % (AUTO) 71.5 %; PLT - PLATELET COUNT 224 10^3/uL (130-450); RED CELL DISTRIBUTION WIDTH 16.9 % (12.0-15.0); WHITE BLOOD COUNT 2.7 x10^3/uL (4.8-10.8)
[2024-12-05] MEDS: dexAMETHasone 4 MG TABLET PO SCH (08:25)
[2024-12-05 08:28] LABS: SLIDE REVIEW? Indicated
[2024-12-05 08:44] LABS: RBC MORPHOLOGY (MULTIPLE) 2+ ANISOCYTOSIS (NORMAL)
[2024-12-05] MEDS: MAGNESIUM OXIDE 400 MG TABLET PO SCH (12:09)
[2024-12-05] MEDS: POTASSIUM CHLORIDE 10 MEQ CAPSULE PO ONE (12:10)
[2024-12-05] MEDS: PANTOPRAZOLE 40 MG TABLET PO SCH (16:12)
--- NOTE | 2024-12-05 18:54 | PROVIDER PROGRESS NOTE ---
Subjective Prog Note Date Prog Note Date: 12/05/24 Prog Note Time: 18:48 Subjective Pt reports feeling: No change Subjective: We felt that she was stable for discharge yesterday with regards to her GI bleed. Hemoglobin was stable. She did have some hypokalemia and hypomagnesemia and we supplemented it. However, we find that she is so weak, she is not at her baseline and she will need help with rehab. This morning I discussed the case with general surgery and they no longer need to consult with us. But they have encouraged me to call them back if I need an endoscopy. The patient is fretful. She says that she is lost her Chapstick somewhere in the bed and asked me to find it. She denies chest pain, palpitations, gets short of breath when she gets excited or she has to get up out of bed. She has no appetite. Current Medications Current Medications Current Medications: Current Medications Generic Name Dose Route Start Last Admin Trade Name Freq PRN Reason Stop Dose Admin Acetaminophen 650 mg 12/02/24 02:26 Acetaminophen 325 Mg Tablet PO Q4HR PRN Pain 1 to 4, or Fever Apixaban 5 mg 12/03/24 21:00 12/05/24 08:25 Apixaban 5 Mg Tablet PO 5 mg BID ANN Administration Ascorbic Acid 1,000 mg 12/02/24 03:00 12/05/24 08:26 Ascorbic Acid 500 Mg Tablet PO 1,000 mg DAILY ANN Administration Cholecalciferol 50 mcg 12/02/24 09:00 12/05/24 08:26 Cholecalciferol 25 Mcg Tablet PO 50 mcg DAILY ANN Administration Cyanocobalamin 2,000 mcg 12/02/24 09:00 12/05/24 08:26 Cyanocobalamin 500 Mcg Tablet PO 2,000 mcg DAILY ANN Administration Dexamethasone 20 mg 12/05/24 08:00 12/05/24 08:25 Dexamethasone 4 Mg Tablet PO 20 mg OAW ANN Administration Levothyroxine Sodium 100 mcg 12/02/24 07:00 12/05/24 06:29 Levothyroxine 100 Mcg Tablet PO 100 mcg QDAC ANN Administration Magnesium Oxide 400 mg 12/05/24 11:00 12/05/24 12:09 Magnesium Oxide 400 Mg Tablet PO 400 mg DAILYWM ANN Administration Metoprolol Succinate 25 mg 12/02/24 09:00 12/05/24 08:25 Metoprolol Succinate 25 Mg Tablet PO 25 mg DAILY ANN Administration Multi-Ingredient Ointment 1 applic 12/05/24 16:27 Zinc Oxide 20% Oint 30 Gm Tube TOP PRN PRN Skin Care Multivitamins 1 tab 12/02/24 08:00 12/05/24 08:35 Multivitamin Tablet PO 1 tab DAILYWM ANN Administration Non-Formulary Medication 500 mg 12/02/24 09:00 12/05/24 08:35 Cranberry PO Not Given BID ANN Non-Formulary Medication 1,000 mg 12/02/24 09:00 12/05/24 08:35 D-Mannose PO Not Given BID [facility] Ondansetron HCl 4 mg 12/02/24 02:26 Ondansetron Odt 4 Mg Tablet TL Q6HR PRN Nausea / Vomiting Ondansetron HCl 4 mg 12/02/24 02:26 Ondansetron 4 Mg/2 Ml Vial IVP Q6HR PRN Nausea / Vomiting Oxycodone HCl 5 mg 12/02/24 03:34 Oxycodone 5 Mg Tablet PO Q6H PRN Moderate Pain (Level 4-6) Pantoprazole Sodium 40 mg 12/05/24 16:00 12/05/24 16:12 Pantoprazole 40 Mg Tablet PO 40 mg BIDAC ANN Administration Sodium Chloride 10 ml 12/02/24 02:26 Sodium Chloride Flush 0.9% 10 Ml Syringe IVP PRN PRN NEEDED PER PROVIDER ORDERS Sodium Chloride 10 ml 12/02/24 09:00 12/05/24 16:11 Sodium Chloride Flush 0.9% 10 Ml Syringe IVP 10 ml 0100,0900,1700 ANN Administration Objective Vital Signs/Intake & Output Reviewed Vital Signs: Yes Vital Signs: Vital Signs x48h Temp Pulse Resp BP Pulse Ox O2 Flow Rate 12/05/24 15:46 36.5 C 74 20 160/87 H 98 2 12/05/24 11:30 2 12/05/24 11:28 36.2 C L 79 16 173/84 H 96 2 Intake & Output: Intake & Output 12/02/24 12/03/24 12/04/24 12/05/24 23:59 23:59 23:59 23:59 Intake Total 3624 / 3624 3360 / 3360 2440 / 2440 700 / 700 Output Total 500 / 500 1250 / 1250 1800 / 1800 600 / 600 Balance 3124 / 3124 2110 / 2110 640 / 640 100 / 100 Weight (kg) 65.5 kg Objective General Appearance: positive No acute distress, Alert and Other (5 foot 4 inch, 65.5 kg, frail, elderly female, disheveled, fretful) Eyes Bilateral: positive PERRL and EOMI ENT: positive No signs of dehydration Neck: positive No JVD; negative Stiff neck Respiratory: positive No respiratory distress and Breath sounds nml Cardiovascular: positive Regular rate & rhythm Abdomen: positive Non-tender, No organomegaly, Nml bowel sounds and No distention Skin: positive Warm, Dry and Pallor Extremities: positive Non-tender, Full ROM and No pedal edema Neurologic/Psychiatric: positive Oriented x3, CN's nml (2-12) and Motor nml Lab Results 12/05/24 07:36 12/04/24 05:20 Other Labs: Lab Results x24hrs 12/05/24 12/01/24 Range/Units 07:36 23:14 WBC 2.7 L (4.8-10.8) x10^3/uL RBC 2.40 L (4.20-5.40) 10^6/uL Hgb 7.9 L (12.0-16.0) g/dL Hct 25.0 L (37.0-47.0) % MCV 104.2 H (81.0-99.0) fL MCH 32.9 H (27.0-31.0) pg MCHC 31.6 L (32.0-36.0) g/dL RDW 16.9 H (12.0-15.0) % Plt Count 224 (130-450) 10^3/uL MPV 9.4 (7.9-10.8) fL Neut # (Auto) 2.0 (1.5-6.6) 10^3/uL Lymph # (Auto) 0.2 L (1.5-3.5) 10^3/uL [place] # (Auto) 0.3 (0.0-1.0) 10^3/uL Eos # (Auto) 0.2 (0.0-0.7) 10^3/uL Baso # (Auto) 0.0 (0.0-0.1) 10^3/uL Absolute Nucleated RBC 0.00 x10^3/uL Nucleated RBC % 0.0 /100WBC Manual Slide Review Indicated RBC Morph Micro Appear 2+ ANISOCYTOSIS (NORMAL) Crossmatch See Detail Crossmatch IS Only See Detail Assessment/Plan Problem List (1) Generalized weakness: Impression: We had planned for discharge 12/04 if her hemoglobin was stable. However she is profoundly weak. Her baseline is the ability to get up and walk to a commode is probably 10 feet away from her. She uses a walker within her home. She has caregivers 4 hours a day to make sure food is being done, that she is clean, and that her medicines are given to her. But she is requiring more care than that. PT feels that she should be discharged to a longterm facilities. I had a long conversation with her DPOA in the evening of 12/04. He is amenable to that suggestion. He specifically requests [facility] as a place where she should go. He lives in [place] and it would be easier for him to see her there. She also has multiple friends in [place] and it would be easier for them to see her [place]. But [facility] is not accepting new patients and she must be choiced to go elsewhere. Serial social work and discharge planning have left messages at multiple facilities and will see when she can be transitioned for rehab. Today will be avoidable day 1. (2) Acute GI bleeding: Impression: Patient presents for weakness, bright red blood per rectum, as well as frequent falls. Hemoglobin has steadily dropped from 10.2 on admission to 7.9>>8.1>>7.9 today. She was stable enough that Gen Surg felt we could resume her Eliquis. If she did not have any other bleeding and her Hgb was stable, she could go home 12/04/24. Preferably, we would complete EGD and colonoscopy in the outpatient setting. 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 IV Protonix switched to oral Protonix twice daily. Since she is drinking enough, I stopped IVF 12/04 Previous provider did reach out to her oncologist, Dr. Delgadillo with [facility]. She did return the call 12/04 and I discussed the case with her. She feels we can resume the patient's anticoagulant but do not resume the pomalidomide. Plan: No discharge today. Continue eliquis. Today is avoidable day 1. (3) Hypokalemia and hypomagnesemia. Yesterday she received oral potassium 40 mEq. Today we will repeat the oral potassium 40 mEq and start magnesium oxide 400 mg daily. (4) Acute colitis: Impression: Patient is not having any abdominal pain or active diarrhea. Monitor off antibiotics at this time. (5) Multiple myeloma: Impression: Previous provider reviewed her oncology notes from 11/05/2024. She has been dealing with multiple myeloma for over 12 years. 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 She has received a bone marrow transplant in 2016, and has had palliative radiation to her right hip for osseous lesions. She had a PET scan done recently, and is awaiting review with her oncologist. She is finishing up her second cycle of pomalidomide and dexamethasone. She is also pending dental work to initiate bisphosphonate therapy. We asked that Dr. Delgadillo with [facility] reach out to us about managment. She does endorse the use of eliquis but wants the patient to stop the pomalidomide for now until she is seen again. She is also working with palliative care, and last saw them 11/27/2024 for symptomatic management. She remains on oxycodone which helps with her pain and sleep. She is DNR and DNI, but is not ready to talk about hospice care. Dr. Delgadillo will continue to expound on that conversation with the paitent's next visits with her. I shared the prognosis with her DPOA. Both Dr. Delgadillo and myself feel that her life expectancy is less than a year. Her DPOA says she has "really gone downhill over the last few weeks." Qualifiers: Multiple myeloma remission status: in relapse Qualified Code(s): C90.02 - Multiple myeloma in relapse (6) Hypothyroid: Impression: Continue levothyroxine. Qualifiers: Hypothyroidism type: unspecified Qualified Code(s): E03.9 - Hypothyroidism, unspecified (7) Hypertension: Impression: Continue metoprolol. Qualifiers: Hypertension type: primary hypertension Qualified Code(s): I10 - Essential (primary) hypertension
--- NOTE | 2024-12-06 19:28 | PROVIDER PROGRESS NOTE ---
Subjective Prog Note Date Prog Note Date: 12/06/24 Prog Note Time: 19:23 Subjective Pt reports feeling: Improved Subjective: prop worker continues to work on finding her placement. Her power of criminal defense attorney, and friend named Kurt, had selected [facility] but they are unable to take her. That was yesterday. Today [facility] said yes but cannot take her until tomorrow. She is otherwise unchanged. She is an elderly, frail female who has tremors, nursing has to feed her. I have gently explained to her that her oncologist does not want her to take the medication for her multiple myeloma and she accepts that. So when she goes to the fpc facility she will not be taking that medication. She denies any new cough, chest pain, palpitations, shortness of breath. No new GI bleed. Current Medications Current Medications Current Medications: Current Medications Generic Name Dose Route Start Last Admin Trade Name Freq PRN Reason Stop Dose Admin Acetaminophen 650 mg 12/02/24 02:26 Acetaminophen 325 Mg Tablet PO Q4HR PRN Pain 1 to 4, or Fever Apixaban 5 mg 12/03/24 21:00 12/06/24 09:02 Apixaban 5 Mg Tablet PO 5 mg BID ANN Administration Ascorbic Acid 1,000 mg 12/02/24 03:00 12/06/24 08:59 Ascorbic Acid 500 Mg Tablet PO 1,000 mg DAILY ANN Administration Cholecalciferol 50 mcg 12/02/24 09:00 12/06/24 09:10 Cholecalciferol 25 Mcg Tablet PO 50 mcg DAILY ANN Administration Cyanocobalamin 2,000 mcg 12/02/24 09:00 12/06/24 08:58 Cyanocobalamin 500 Mcg Tablet PO 2,000 mcg DAILY ANN Administration Dexamethasone 20 mg 12/05/24 08:00 12/05/24 08:25 Dexamethasone 4 Mg Tablet PO 20 mg OAW ANN Administration Levothyroxine Sodium 100 mcg 12/02/24 07:00 12/06/24 06:23 Levothyroxine 100 Mcg Tablet PO 100 mcg QDAC ANN Administration Magnesium Oxide 400 mg 12/05/24 11:00 12/06/24 08:59 Magnesium Oxide 400 Mg Tablet PO 400 mg DAILYWM ANN Administration Metoprolol Succinate 25 mg 12/02/24 09:00 12/06/24 09:00 Metoprolol Succinate 25 Mg Tablet PO 25 mg DAILY ANN Administration Multi-Ingredient Ointment 1 applic 12/05/24 16:27 Zinc Oxide 20% Oint 30 Gm Tube TOP PRN PRN Skin Care Multivitamins 1 tab 12/02/24 08:00 12/06/24 08:59 Multivitamin Tablet PO 1 tab DAILYWM ANN Administration Non-Formulary Medication 500 mg 12/02/24 09:00 12/06/24 09:11 Cranberry PO Not Given BID ANN Non-Formulary Medication 1,000 mg 12/02/24 09:00 12/06/24 09:10 D-Mannose PO Not Given BID [facility] Ondansetron HCl 4 mg 12/02/24 02:26 Ondansetron Odt 4 Mg Tablet TL Q6HR PRN Nausea / Vomiting Ondansetron HCl 4 mg 12/02/24 02:26 Ondansetron 4 Mg/2 Ml Vial IVP Q6HR PRN Nausea / Vomiting Oxycodone HCl 5 mg 12/02/24 03:34 Oxycodone 5 Mg Tablet PO Q6H PRN Moderate Pain (Level 4-6) Pantoprazole Sodium 40 mg 12/05/24 16:00 12/06/24 17:05 Pantoprazole 40 Mg Tablet PO 40 mg BIDAC ANN Administration Sodium Chloride 10 ml 12/02/24 02:26 Sodium Chloride Flush 0.9% 10 Ml Syringe IVP PRN PRN NEEDED PER PROVIDER ORDERS Sodium Chloride 10 ml 12/02/24 09:00 12/06/24 17:05 Sodium Chloride Flush 0.9% 10 Ml Syringe IVP 10 ml 0100,0900,1700 ANN Administration Objective Vital Signs/Intake & Output Reviewed Vital Signs: Yes Vital Signs: Vital Signs x48h Temp Pulse Resp BP Pulse Ox 12/06/24 16:18 36.4 C L 78 16 158/81 H 93 Intake & Output: Intake & Output 12/03/24 12/04/24 12/05/24 12/06/24 23:59 23:59 23:59 23:59 Intake Total 3360 / 3360 2440 / 2440 900 / 900 810 / 810 Output Total 1250 / 1250 1800 / 1800 1300 / 1300 450 / 450 Balance 2110 / 2110 640 / 640 -400 / -400 360 / 360 Objective General Appearance: positive No acute distress, Alert and Other (Moderately deaf and she ask you to please speak louder. Needs a lot of help to set up, and nursing is feeding her) Eyes Bilateral: positive PERRL and EOMI ENT: positive No signs of dehydration Neck: positive No JVD; negative Stiff neck Respiratory: positive No respiratory distress and Breath sounds nml Cardiovascular: positive Regular rate & rhythm and Systolic murmur Abdomen: positive Non-tender, No organomegaly, Nml bowel sounds and No distention Skin: positive Warm, Dry and Pallor Extremities: positive Full ROM and Pedal edema Neurologic/Psychiatric: positive Oriented x3, Motor nml and Weakness (Generalized.); negative CN's nml (2-12) (Deaf) Lab Results 12/05/24 07:36 12/04/24 05:20 Assessment/Plan Problem List (1) Generalized weakness: Impression: We had planned for discharge 12/04 if her hemoglobin was stable. However she is profoundly weak. Her baseline is the ability to get up and walk to a commode is probably 10 feet away from her. She uses a walker within her home. She has caregivers 4 hours a day to make sure food is being done, that she is clean, and that her medicines are given to her. But she is requiring more care than that. PT feels that she should be discharged to a fpc facilities. I had a long conversation with her DPOA in the evening of 12/04. He is amenable to that suggestion. He specifically requests [facility] as a place where she should go. He lives in [place] and it would be easier for him to see her there. She also has multiple friends in [place] and it would be easier for them to see her in [place] then [place] But [facility] is not accepting new patients and she must be choiced to go elsewhere. We worked on placement on December 05. This morning [facility] responded and she will go there tomorrow. Today's another avoidable day. PT and OT did not work with her today since she refused due to fatigue. (2) Acute GI bleeding: Impression: Patient presents for weakness, bright red blood per rectum, as well as frequent falls. Hemoglobin has steadily dropped from 10.2 on admission to 7.9>>8.1>>7.9 on 12/05. No hgb today. She was stable enough that Gen Surg felt we could resume her Eliquis. If she did not have any other bleeding and her Hgb was stable, she could go home 12/04/24. Preferably, we would complete EGD and colonoscopy in the outpatient setting. 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 IV Protonix switched to oral Protonix twice daily. Since she is drinking enough, I stopped IVF 12/04 Previous provider did reach out to her oncologist, Dr. Delgadillo with [facility]. She did return the call 12/04 and I discussed the case with her. She feels we can resume the patient's anticoagulant but do not resume the pomalidomide. Plan: No discharge today. Continue eliquis. Today is avoidable day 2. I will repeat CBC today to make sure she is stable for discharge tomorrow (3) Hypokalemia and hypomagnesemia. 12/04 she received oral potassium 40 mEq. 12/05 I repeated the oral potassium 40 mEq dosing and start magnesium oxide 400 mg daily. I will repeat her BMP today to make sure it is stable for discharge tomorrow (4) Acute colitis: Impression: Patient is not having any abdominal pain or active diarrhea. Monitor off antibiotics at this time. (5) Multiple myeloma: Impression: Previous provider reviewed her oncology notes from 11/05/2024. She has been dealing with multiple myeloma for over 12 years. 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 She has received a bone marrow transplant in 2016, and has had palliative radiation to her right hip for osseous lesions. She had a PET scan done recently, and is awaiting review with her oncologist. She is finishing up her second cycle of pomalidomide and dexamethasone. She is also pending dental work to initiate bisphosphonate therapy. We asked that Dr. Delgadillo with [facility] reach out to us about managment. She does endorse the use of eliquis but wants the patient to stop the pomalidomide for now until she is seen again. She is also working with palliative care, and last saw them 11/27/2024 for symptomatic management. She remains on oxycodone which helps with her pain and sleep. She is DNR and DNI, but is not ready to talk about hospice care. Dr. Delgadillo will continue to expound on that conversation with the paitent's next visits with her. I shared the prognosis with her DPOA. Both Dr. Delgadillo and myself feel that her life expectancy is less than a year. Her DPOA says she has "really gone downhill over the last few weeks." Qualifiers: Multiple myeloma remission status: in relapse Qualified Code(s): C90.02 - Multiple myeloma in relapse (6) Hypothyroid: Impression: Continue levothyroxine. Qualifiers: Hypothyroidism type: unspecified Qualified Code(s): E03.9 - Hypothyroidism, unspecified (7) Hypertension: Impression: Continue metoprolol. Qualifiers: Hypertension type: primary hypertension Qualified Code(s): I10 - Essential (primary) hypertension
[2024-12-06] MEDS: ZINC OXIDE 20% OINT 30 GM TUBE TOP PRN (20:06)
[2024-12-07 05:37] LABS: BASOPHILS % (AUTO) 0.4 %; EOSINOPHILS % (AUTO) 11.9 %; HCT - HEMATOCRIT 26.9 % (37.0-47.0); HGB - HEMOGLOBIN 8.6 g/dL (12.0-16.0); LYMPHOCYTES % (AUTO) 10.9 %; MEAN CORPUSCULAR HEMOGLOBIN 33.1 pg (27.0-31.0); MEAN CORPUSCULAR VOLUME 103.5 fL (81.0-99.0); MEAN PLATELET VOLUME 9.5 fL (7.9-10.8); MONOCYTES % (AUTO) 11.2 %; NEUTROPHILS % (AUTO) 64.2 %; PLT - PLATELET COUNT 242 10^3/uL (130-450); RED CELL DISTRIBUTION WIDTH 16.7 % (12.0-15.0); WHITE BLOOD COUNT 2.9 x10^3/uL (4.8-10.8)
[2024-12-07 05:50] LABS: ABNORMAL LYMPHS % (MANUAL) 0 %; CALCIUM 9.3 mg/dL (8.5-10.3); CREATININE 0.9 mg/dL (0.6-1.3); POTASSIUM 3.6 mmol/L (3.5-4.5)
[2024-12-07 06:57] LABS: BAND NEUTROPHILS % (MANUAL) 3 %; EOSINOPHILS # (MANUAL) 0.3 10^3/uL (0-0.7); LYMPHOCYTES # (MANUAL) 0.3 10^3/uL (1.5-3.5); LYMPHOCYTES % (MANUAL) 11 %; MONOCYTES # (MANUAL) 0.3 10^3/uL (0.0-1.0)
[2024-12-07 06:58] LABS: DIFFERENTIAL COMMENT MANUAL DIFFERENTIAL; PLATELET ESTIMATE, MANUAL NORMAL (130-450,000) (NORMAL); PLATELET MORPHOLOGY NORMAL APPEARANCE (NORMAL); RBC MORPHOLOGY (MULTIPLE) 1+ MACROCYTOSIS (NORMAL); WBC MORPHOLOGY (MULTIPLE) NORMAL APPEARANCE (NORMAL)
--- NOTE | 2024-12-07 07:20 | Discharge Summary ---
Discharge Summary Admit Date: 12/02/24 Discharge Date: 12/07/24 Discharging Provider: Dilcia Parry MD Primary Care Provider: Clive Smith MD Code Status: Do Not Attempt Resuscitation Discharge Facility Name: [facility] DIAGNOSES Discharge Diagnoses with Status of Each Condition: 1. Acute GI bleed 2. History of recurrent DVTs on DOAC 3. Acute colitis 4. Hypokalemia 5. Hypomagnesemia 6. Multiple myeloma 7. Generalized weakness with inability to go home due to ADL needs 8. Hypothyroidism 9. Hypertension 10. Moderate deafness HPI History of Present Illness: H&P was conducted via video remotely, using [employer]. [place]. MILK CONDENSER is at bedside, helping with history, as audio is not working. 79 yo F with PMH of Multiple Myeloma (Relapsed IgA lampda myeloma with Osseous lesions) on therapy, recurrent DVTs on Eliquis, HTN, HLD, Hypothyroidism, GERD, Depression, Weakness, frequent Falls presented to the ER s/p Fall. Pt was on the toilet, she felt weak, then slid to the ground sitting down. No dizziness, no LOC. Pt says that has weakness episodes/falls occasionally. Pt has had 1 week h/o blood mixed in her stool. BMs have been normal, 2x/day, no loose stools, no constipation, no abdo pain, no N/V. Pt thinks blood in stool is caused by change of Coumadin to Eliquis about 1 week ago. Pt has not been eating well recently d/t no appetite. No urinary symptoms. EMS reported low BP upon arrival and they started IVF. In the ER, Hgb 10.2, MCV 108.1, INR 1.8, Glc 182, Mg 1.6 ER Physician did MICHAEL: +FOB EKG: NSR at 95 bpm, +PVCs CTA Abdo/Pelvis: Generalized distal colonic wall thickening can be seen. Please correlate with potential infectious and inflammatory causes of colitis. No findings of perforation or abscess can be seen. No site of active extravasation can be seen. There is a stable 6 cm focus of bony lysis within the posterior medial left iliac bone, with an associated pathologic fracture. Additional milder areas of bony lysis can be seen. These findings may represent metastatic disease versus multiple myeloma. Please correlate with patient history. CT Head: No intracranial hemorrhage is seen. No significant intracranial abnormality is seen. 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 Air-fluid level seen within the right maxillary sinus. Please correlate with acute sinusitis. Pt was given IVF in the ER. CONSULTS | PROCEDURES Consultations: General surgery Procedures: Head CT is without intracranial hemorrhage. No significant intracranial abnormality seen. 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 Abdomen/pelvis CT angiogram is within normal aortic size. Normal enhancement. Mesenteric arteries have a separate origin of the main splenic artery and the main hepatic artery. Superior and inferior mesenteric arteries appear patent. Pelvic arteries within normal limits. Lung bases unremarkable. There is moderate wall thickening seen involving the distal colon beginning at the end of the splenic flexure and continuing to the rectum. Nonspecific. There is a focal lytic process within the left medial iliac bone measuring 6 cm associated with a pathologic fracture. Milder areas of bony lysis can be seen. This is compatible with her multiple myeloma. HOSPITAL COURSE Hospital Course: (1) Generalized weakness: Impression: We had planned for discharge 12/04 if her hemoglobin was stable. However she is profoundly weak. Her baseline is the ability to get up and walk to a commode is probably 10 feet away from her. She uses a walker within her home. She has caregivers 4 hours a day to make sure food is being done, that she is clean, and that her medicines are given to her. But she is requiring more care than that. PT feels that she should be discharged to a fpc facilities. I had a long conversation with her DPOA in the evening of 12/04. He is amenable to that suggestion. He specifically requests [facility] as a place where she should go. He lives in [place] and it would be easier for him to see her there. She also has multiple friends in [place] and it would be easier for them to see her in [place] then to [place]. However that specific care facility was not available. And we spent a couple of days finding a facility as well as getting authorization. She is now to be discharged to [facility]. Plan is for her to get rehab to get strong enough to get back to her baseline. And then she will return to her home with caregivers. She is not in contact with her children, and her DPOA and POA is Kurt Farmer, [phone]. She is a DO NOT RESUSCITATE. (2) Acute GI bleeding: Impression: Patient presents for weakness, bright red blood per rectum, as well as frequent falls. Hemoglobin has steadily dropped from 10.2 on admission to 7.9>>8.1>>7.9>>8.6 on the day of discharge. She did not require transfusion. She was stable enough that Gen Surg felt we could resume her Eliquis. If she did not have any other bleeding and her Hgb was stable, she could go home 12/04/24. Preferably, we would complete EGD and colonoscopy in the outpatient setting. 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 IV Protonix switched to oral Protonix twice daily. Since she was drinking enough, I stopped IVF 12/04 Previous provider did reach out to her oncologist, Dr. Delgadillo with [facility]. She did return the call 12/04 and I discussed the case with her. She feels we can resume the patient's anticoagulant but do not resume the pomalidomide. - The patient needs to follow-up with her primary care provider, Dr. Clive Smith, after discharge from the fpc facility. General surgery would also like to see her in follow-up to do an outpatient elective EGD and colonoscopy. She was seen by Dr. Lucy Mckeon. Her office phone number is [phone] (3) Hypokalemia and hypomagnesemia. 12/04 she received oral potassium 40 mEq. 12/05 I repeated the oral potassium 40 mEq dosing and start magnesium oxide 400 mg daily.Potassium at discharge is 3.6 (4) Acute colitis: Impression: Patient is not having any abdominal pain or active diarrhea. Monitor off antibiotics at this time. (5) Multiple myeloma: Impression: Previous provider reviewed her oncology notes from 11/05/2024. She has been dealing with multiple myeloma for over 12 years. 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 She has received a bone marrow transplant in 2016, and has had palliative radiation to her right hip for osseous lesions. She had a PET scan done recently, and is awaiting review with her oncologist. She is finishing up her second cycle of pomalidomide and dexamethasone. She is also pending dental work to initiate bisphosphonate therapy. We asked that Dr. Delgadillo with [facility] reach out to us about managment. She does endorse the use of eliquis but wants the patient to stop the pomalidomide for now until she is seen again in the Oncology Clinic. She is also working with palliative care, and last saw them 11/27/2024 for symptomatic management. She remains on oxycodone which helps with her pain and sleep. She is DNR and DNI, but is not ready to talk about hospice care. Dr. Delgadillo will continue to expound on that conversation with the patient's next visit with her. I shared the prognosis with her DPOA. Both Dr. Delgadillo and myself feel that her life expectancy is less than a year. Her DPOA says she has "really gone downhill over the last few weeks." I did let the patient know that we are not resuming the pomalidomide and the patient excepted that. Qualifiers: Multiple myeloma remission status: in relapse Qualified Code(s): C90.02 - Multiple myeloma in relapse (6) Hypothyroid: Impression: Continued on levothyroxine. Qualifiers: Hypothyroidism type: unspecified Qualified Code(s): E03.9 - Hypothyroidism, unspecified (7) Hypertension: Impression: Continued on metoprolol. We had wanted to avoid rebound tachycardia. As her stay went on, her blood pressures come up. She is now hypertensive at discharge and as such we will resume her list of home medications which include losartan, metoprolol, and amlodipine. Qualifiers: Hypertension type: primary hypertension Qualified Code(s): I10 - Essential (primary) hypertension At discharge the patient is a frail elderly female. 5 feet 4 inches tall, 65.5 kg. She is alert and oriented to person, place, time and situation. She is moderately deaf so you have to make sure that you speak loudly and slowly. She is very capable of expressing her irritation if she cannot understand you or hear you. She is forgetful. Blood pressure is 160/76, pulse 77, respirations 18. Temperature 36.4. O2 sat is 90% on room air. Occasionally she needs oxygen and at 2 L she will be 96%. Her blood pressure has been consistently in the 160s to 170s for the last 2 days. She does have a few missing teeth. No dentures. Neck is with shotty adenopathy. Lungs have diminished breath sounds at the bases but are otherwise clear. She has a regular rate and rhythm with a soft systolic ejection murmur. The abdomen is soft, nontender, hypoactive bowel sounds. She is eating 25 to 75% of her food. She is on a soft low fiber diet. She is incontinent of stool and urine at times. Her sacrum and buttocks have a tinge of red to them where she has been laying. We strongly encouraged her to rotate her body or to sit up in a chair and she is reluctant to do so. She has multiple bruises from her falls at home. She has bilateral tremors of her hands that can increase in severity when she is upset. She has overall generalized weakness, is off balance. Is a total assist for her ADLs. Greater than 30 minutes was spent coordinating discharge This document was made in part using voice recognition software. While efforts are made to proofread this document, sound alike and grammatical errors may occur. ALLERGIES Allergies Allergy/AdvReac Type Severity Reaction Status Date / Time No Known Drug Allergies Allergy Verified 12/01/24 23:08 MEDICATIONS Ambulatory Orders Medication Instructions Recorded Confirmed acetaminophen 500 mg capsule 500 mg PO .q6hprn #60 caps 12/07/24 amlodipine 2.5 mg tablet 2.5 mg PO DAILY #30 tabs 12/07/24 12/02/24 apixaban 5 mg tablet (Eliquis) 5 mg PO BID #60 tabs 12/07/24 ascorbic acid (vitamin C) 1,000 mg 1 g PO QDAY #30 caps 12/07/24 capsule cholecalciferol (vitamin D3) 25 50 mcg (2 x 25 mcg (1,000 unit)) 12/07/24 mcg (1,000 unit) capsule PO QDAY #30 caps cranberry 500 mg capsule 500 mg PO BID #30 caps 12/07/24 d-mannose 500 mg capsule 1,000 mg (2 x 500 mg) PO BID #60 12/07/24 caps dexamethasone 4 mg tablet 20 mg (5 x 4 mg) PO .once per week 12/07/24 #20 tabs levothyroxine 100 mcg tablet 100 mcg PO QDAC #30 tabs 12/07/24 loperamide 2 mg capsule 4 mg (2 x 2 mg) PO Q6H PRN loose 12/07/24 (Anti-Diarrheal (loperamide)) stool #20 caps losartan 100 mg tablet 50 mg (1/2 x 100 mg) PO DAILY #30 12/07/24 tabs magnesium oxide 400 mg (241.3 mg 400 mg PO DAILYWM #30 tabs 12/07/24 magnesium) tablet mecobalamin (vitamin B12) 1,000 2,000 mcg (2 x 1,000 mcg) PO QDAY 12/07/24 mcg chewable tablet #30 tabs metoprolol succinate 25 mg 25 mg PO DAILY #30 tabs 12/07/24 tablet,extended release 24 hr multivitamin 1 tab PO QAM #30 tabs 12/07/24 oxycodone-acetaminophen 5 mg-325 1 tab PO Q6H PRN pain #30 tabs 12/07/24 mg tablet pantoprazole 40 mg tablet,delayed 40 mg PO BIDAC #60 tabs 12/07/24 release zinc oxide 20 % topical ointment 1 applic topical PRN PRN Skin Care 12/07/24 #28 grams PHYSICAL EXAM AT DISCHARGE Vital Signs: Vital Signs x48h Temp Pulse Resp BP Pulse Ox 12/07/24 07:40 36.4 C L 70 18 170/78 H 93 LABS 12/07/24 05:11 12/07/24 05:11 Discharge Plan Discharge Patient Disposition: 03 [facility] DC/Xfer Condition: Stable Medically Cleared Date:: 12/04/24 Prescriptions: New zinc oxide 20 % Ointment 1 applic topical PRN PRN (Reason: Skin Care) Qty: 28 0RF pantoprazole 40 mg Tablet,Delayed Release (Dr/Ec) 40 mg PO BIDAC Qty: 60 0RF magnesium oxide 400 mg (241.3 mg magnesium) Tablet 400 mg PO DAILYWM Qty: 30 0RF Continued multivitamin Tablet 1 tab PO QAM Qty: 30 0RF loperamide [Anti-Diarrheal (loperamide)] 2 mg capsule 4 mg PO Q6H PRN (Reason: loose stool) Qty: 20 0RF levothyroxine 100 MCG tablet 100 mcg PO QDAC Qty: 30 0RF oxycodone-acetaminophen 5-325 mg tablet 1 tab PO Q6H PRN (Reason: pain) Qty: 30 0RF dexamethasone 4 mg tablet 20 mg PO .once per week Qty: 20 0RF metoprolol succinate 25 MG tablet extended release 24 hr 25 mg PO DAILY Qty: 30 0RF losartan 100 mg tablet 50 mg PO DAILY Qty: 30 0RF cranberry 500 mg capsule 500 mg PO BID Qty: 30 0RF Rx Instructions: administer with meals cholecalciferol (vitamin D3) 25 mcg (1,000 unit) capsule 50 mcg PO QDAY Qty: 30 0RF Eliquis 5 mg tablet 5 mg PO BID Qty: 60 0RF ascorbic acid (vitamin C) 1,000 mg capsule 1 g PO QDAY Qty: 30 0RF mecobalamin (vitamin B12) 1,000 mcg tablet,chewable 2,000 mcg PO QDAY Qty: 30 0RF d-mannose 500 mg capsule 1,000 mg PO BID Qty: 60 0RF Changed amlodipine 2.5 mg tablet 2.5 mg PO DAILY Qty: 30 0RF acetaminophen 500 mg capsule 500 mg PO .q6hprn Qty: 60 0RF Discontinued Pomalyst 4 mg capsule 4 mg PO QAM Health Concerns: The patient is an elderly deaf female with multiple myeloma and has been gently failing. She lives in her own home. She is estranged from her children and she has a designated DPOA and POA. She is a DO NOT RESUSCITATE. She presented with bright red blood per rectum and abdominal pain. She was admitted as a GI bleed. She did not require transfusions. She was temporarily taken off her DOAC that is given for history of DVTs. That has been resumed since she did not require transfusion and her GI bleeding stopped. Source appears to be descending colon colitis seen on CT angiogram. Patient was stable for discharge on December 04 and we awaited authorization for transfer to fpc facility. She is now able to be discharged today. She is deaf but is alert and oriented to person, place, time and situation. She is occasionally forgetful. She has generalized weakness and she is not able to complete her ADLs. Goal would be for her to get stronger in a fpc facility with rehab. And then she will return to her home. Plan is for her to have increased caregiving hours arranged by her DPOA and POA. I have spoken to her oncologist and her oncologist feels that prognosis is poor overall. This is due to her multiple myeloma. She does not want the patient to resume her pomalidomide until she is seen in her next clinic visit with oncology. She should also be seen in follow-up by general surgery. She will have an elective outpatient EGD and colonoscopy. Print Language: Latvian Patient Instructions: Bleeding Gastrointestinal Stand Alone Forms: SNF Discharge Follow-up Care: Clive Smith [Other] Uriel Mckeon MD [Provider Admit Priv/Credential] - (follow up in two weeks. Call office to schedule appointment.)
[2024-12-07] MEDS: ACETAMINOPHEN 325 MG TABLET PO PRN (09:34)
[2024-12-07 11:49] VITALS: BP 159/77; TEMP 97.7; O2SAT 94
== END 2024-12-07 12:10 | DRG 392 ==
LOC: ED 22:57 → MS2 12-02 02:27
PROVIDERS: ADMIT Internal Medicine; ATTEND Internal Medicine
DX: R73.9 Hyperglycemia, unspecified; S09.90XA Unspecified injury of head, initial encounter; K52.9 Noninfective gastroenteritis and colitis, unspecified; K21.9 Gastro-esophageal reflux disease without esophagitis; K92.2 Gastrointestinal hemorrhage, unspecified; D62 Acute posthemorrhagic anemia; F32.A Depression, unspecified; Z79.899 Other long term (current) drug therapy; Z66 Do not resuscitate; K92.1 Melena; I95.9 Hypotension, unspecified; C90.02 Multiple myeloma in relapse; I45.10 Unspecified right bundle-branch block; E87.6 Hypokalemia; R32 Unspecified urinary incontinence; I10 Essential (primary) hypertension; Z79.01 Long term (current) use of anticoagulants; R15.9 Full incontinence of feces; W18.11XA Fall from or off toilet without subsequent striking against object, initial encounter; E83.42 Hypomagnesemia; M84.550A Pathological fracture in neoplastic disease, pelvis, initial encounter for fracture; R55 Syncope and collapse; I49.3 Ventricular premature depolarization; Z91.81 History of falling; Z63.4 Disappearance and death of family member; Z79.890 Hormone replacement therapy; E03.9 Hypothyroidism, unspecified; R10.30 Lower abdominal pain, unspecified; Z86.718 Personal history of other venous thrombosis and embolism; R25.1 Tremor, unspecified; H91.90 Unspecified hearing loss, unspecified ear; R53.1 Weakness; E78.5 Hyperlipidemia, unspecified; D53.9 Nutritional anemia, unspecified